=== PATIENT | male | born 1945 | race Caucasian/White ===

== ENCOUNTER → 2023-09-07 11:27 | Outpatient (REF) | payer MEDICARE, OTHER, SELFPAY ==
[2023-09-07 12:29] LABS: Hematocrit 27.3 % (39.0-52.0); Hemoglobin 8.7 g/dL (13.0-18.0); Mean Corp Hgb Conc. 31.9 g/dL (33.0-37.0); Mean Corpuscular Hgb 30.2 pg (27.0-31.0); Mean Corpuscular Volume 94.8 fL (80.0-94.0); Platelet Count 280 10^3/uL (130-400); Red Blood Cell Count 2.88 10^6/uL (4.70-6.10); Red Cell Dist. Width 18.4 % (11.5-14.5); White Blood Cell Count 7.5 10^3/uL (4.8-10.8)
[2023-09-07 12:52] LABS: Absolute Neutrophils -Man Diff 5.5 10^3/uL (1.4-6.5); Anisocytosis 1+; Band Neutrophils 9 % (0-3); Hypochromasia 1+; Lymphocytes 4 % (20-51); Metamyelocytes 6 % (-); Monocytes 15 % (2-9); Myelocytes 1 % (-); Normal RBC Morphology No; Nucleated Red Blood Cells 1 (-); Platelets Checked Yes; Polychromasia 1+; Segmented Neutrophils 65 % (42-75)
[2023-09-07 12:53] LABS: Total Cells Counted 100
[2023-09-07 13:15] LABS: Erythrocyte Sed Rate > 145 mm/hour (0-20)
== END ==
LOC: REG 11:27
PROVIDERS: ATTENDING PHYSICIAN Student in an Organized Health Care Education/Training Program; FAMILY PHYSICIAN Family Medicine
DX: M54.50 Low back pain, unspecified (principal)
CPT/HCPCS: 36415; 85025; 85652; 86140

== ENCOUNTER 2024-01-18 02:12 | Inpatient (IN) | payer MEDICARE, OTHER, SELFPAY ==
[2024-01-17 20:03] VITALS: BP 123/72
[2024-01-17 20:51] LABS: Hematocrit 27.7 % (39.0-52.0); Mean Corp Hgb Conc. 32.5 g/dL (33.0-37.0); Mean Corpuscular Hgb 29.2 pg (27.0-31.0); Mean Corpuscular Volume 89.9 fL (80.0-94.0); Platelet Count 207 10^3/uL (130-400); Red Blood Cell Count 3.08 10^6/uL (4.70-6.10); White Blood Cell Count 7.3 10^3/uL (4.8-10.8)
[2024-01-17 20:58] LABS: ALT (SGPT) 14 U/L (0-50); AST (SGOT) 56 U/L (17-59); Albumin 2.9 g/dl (3.5-5.0); Alkaline Phosphatase 882 U/L (38-126); Blood Urea Nitrogen 34 mg/dl (9-20); Calcium 8.4 mg/dl (8.4-10.2); Carbon Dioxide 22 mmol/L (22-30); Chloride 101 mmol/L (98-107); Glucose 121 mg/dl (70-99); Potassium 4.7 mmol/L (3.5-5.1); Sodium 133 mmol/L (135-145); Total Bilirubin 0.5 mg/dl (0.2-1.3); Total Protein 5.2 g/dl (6.3-8.2); eGFR > 60.00
[2024-01-17 21:09] LABS: NT-proBNP 595 pg/ml; Troponin I 0.027 ng/ml
[2024-01-17 21:46] LABS: % Basophils 0.8 % (0-2); % Eosinophils 1.6 % (0-6); % Immature Granulocytes 5.7 % (0-0.5); % Lymphocytes 16.6 % (20.5-51.1); % Monocytes 14.5 % (1.7-9.3); % Neutrophils 60.8 % (42.2-75.2); Absolute Basophils 0.1 10^3/uL (0-0.2); Absolute Eosinophils 0.1 10^3/uL (0-0.7); Absolute Immature Granulocytes 0.4 10^3/uL (0-0.05); Absolute Lymphocytes 1.2 10^3/uL (1.2-3.4); Absolute Monocytes 1.1 10^3/uL (0.1-0.6); Absolute Neutrophils 4.4 10^3/uL (1.4-6.5)
[2024-01-18] VITALS (9 sets, daily range): BP systolic 109–133; BP diastolic 63–87; BMI 27.1
--- NOTE | 2024-01-18 00:06 | ED.GENMED ---
History of Present Illness
<Luli Michele MD, Resident - Last Filed: 01/18/24 02:55>
General
Chief Complaint: Breathing Problem
Source: patient
Exam Limitations: none
Time Seen by Provider: 01/17/24 22:52
History of Present Illness
History of Present Illness:
Patient is a 78-year-old male with past medical history of COPD, former smoker (quit 20 years ago) presenting with worsening exertional shortness of breath for the past 4 to 6 weeks. He mentions he cannot walk more than 5 feet before feeling tired
and short of breath. Also has palpitations and mild exertional chest pain. States he has also been having diarrhea intermittently during the past month and has been feeling dizzy. Because of his shortness of breath and dizzy, he has been very
inactive recently and mostly bedridden. Mentions he has not been drinking and eating well and has dark urine. Daughter mentions he has been breaking up 'brown stuff' which think is more likely phlegm than vomit. Denies blood in stool.
Past History
<Luli Michele MD, Resident - Last Filed: 01/18/24 02:55>
Past History
ED Past Medical History: COPD
ED Past Surgical History: Orthopedic (Bilateral knee replacement)
Social History
Tobacco: Former smoker (Quit 40 years ago)
Alcohol: None
Review of Systems
<Luli Michele MD, Resident - Last Filed: 01/18/24 02:55>
Review of Systems
Allergies reviewed?: Yes
All Other Systems: ROS reviewed and negative except as documented in HPI and ROS
Phy Exam
<Luli Michele MD, Resident - Last Filed: 01/18/24 02:55>
General Physical Exam
General Presentation: moderate distress
General Habitus: elderly
General Hydration: dry mucous membranes
Cardiovascular Exam
Cardiovascular Exam: regular rate/rhythm, no edema, no JVD and no murmur
Pulmonary Exam
Pulmonary Exam: no wheezing, no cough, decreased breath sounds and respiratory distress (Moderate respiratory distress)
Oxygen Status: room air
Gastrointestinal Exam
Gastrointestinal Exam: normal bowel sounds, non tender, soft and non distended
Neurological Exam
Neurological Exam: alert, oriented x3, no motor deficits, no sensory deficits and speech normal
Musculoskeletal Exam
Musculoskeletal Exam: full ROM and no edema
Scores
<Luli Michele MD, Resident - Last Filed: 01/18/24 02:55>
Heart Failure Risk
Heart Failure Risk Score: Not Applicable
Course
<Luli Michele MD, Resident - Last Filed: 01/18/24 02:55>
Orders/Labs/Results
Orders:
Orders
01/17/24 20:06
EKG [Electrocardiogram (*1)] Urgent
Reason for Study: Tachycardia
EKG- Treatment ONCE
01/17/24 20:30
Complete Blood Count/With Diff Urgent
Comprehensive Metabolic Panel Urgent
Pro-BNP [NT-proBNP] Urgent
Troponin I Urgent
01/17/24 20:58
Chest [CR Chest - 2 Views ] Urgent
Comment:
Reason For Exam: SOB
01/17/24 23:47
0.9% Sodium Chloride 500 ml [Nss] 500 ml IV BOLUS
01/17/24 23:54
Copd Education [RESP] Routine
01/17/24 23:55
Dexamethasone Sod Phosphate [Decadron] 10 mg IV NOW STA
01/18/24 00:02
Ipratropium/Albuterol Sulfate [Duoneb] 3 ml INH R QID
01/18/24 00:10
Azithromycin 500 mg/250 ml [Zithromax Infusion] 500 mg in 250 ml IV NOW
CefTRIAXone [Rocephin] 1,000 mg IV NOW STA
01/18/24 00:16
Ipratropium/Albuterol Sulfate [Duoneb] 3 ml INH R NOW ONE
01/18/24 01:58
Admit/Transfer Patient As Directed
Co-Sign Provider:
Level of Care: Inpatient admission
Assign to:: Telemetry
Physician / Group: hospitalist
Diagnosis: Pleural effusion
Reason for Telemetry: Subacute Heart Failure
Date to Stop Telemetry: 01/20/24
Time to Stop Telemetry: 11:00
Reason for Hospitalization: dyspnea
Expected length of stay greater than two midnights?: Yes
ELOS- Estimated Length of Stay in days: 2
I certify the patient meets the requirements for IP care: Yes
PRN Pain Medication Management As Directed
May give lesser potent ordered pain med per pt: Yes
preference::
Protocol:: Medication orders for pain may be administered in a
manner that supports deferring to patient preference
when the pt is:
- Requesting an ordered lesser potent pain medication.
Least to most potent pain medications are defined
as: acetaminophen < NSAID < tramadol < opioids
(morphine, oxycodone, hydromorphone).
- Requesting a lesser dose of the same medication IF
ORDERED.
- Requesting a less intrusive route of administration
if both routes are prescribed by the provider (PO <
IV).
01/18/24 01:59
Code Status As Directed
Resuscitation Status: Full Code
01/18/24 02:10
COVID-19 Antigen Stat
Source: Nasal Swab
01/18/24 02:52
Ipratropium/Albuterol Sulfate [Duoneb] 3 ml INH R Q4HPRN PRN
01/18/24 02:52
CT Chest Pe Study Urgent
Comment:
Reason For Exam: PE
Consult Notification Routine
Specialty to Notify: Pulmonary
Consult Pulmonary [PULMONARY CONSULT] Routine
Consulting Provider: Kamaljit Toth
Was physician already notified: No
Reason for consult: bilateral pleural effusions
Activity As Directed
Activity Level: With Assistance
Intake/ Output As Directed
Frequency: Per unit guidelines
Patient Education As Directed
Type: CHF folder
Comment: give on admission. Document in Interdisciplinary Education record
Sleep Apnea Assessment by RN As Directed
Comment:
Physician Instructions:
Vital Signs As Directed
Frequency: Other
Additional Instructions:: Q12 or per unit guidelines if more frequent.
Weight As Directed
Frequency: Daily
Type of Scale: Standing Scale
Comment: Daily morning weight. If unable to stand, use balanced bed scale.
Weight As Directed
Frequency: Once
Type of Scale: Standing Scale
Comment: Upon Admission. If unable to stand, use balanced bed scale.
Oxygen Therapy [O2 Therapy] [RESP] Routine
Nasal Cannula Liter Flow: 2 LPM
Titrate/Wean O2 to maintain O2 sat greater than (%): 93
Pulse Ox/cont/shift [RESP] Routine
Quantity: 1
Special Instructions: Daily pulse oximetry at rest. If greater than 92% at rest also obtain pulse oximetry
while ambulating as tolerated.
DX Deep Vein Thrombosis Video Routine
01/18/24 06:00
Echo 2D MMode Color/Doppler IN AM
Reason for Study: heart failure
Cholesterol Lowering
Cholesterol Lowering: Sodium, 2 Gram
Basic Metabolic Panel IN AM
Cardiovascular Evaluation IN AM
GGT [GGTP] IN AM
LDH IN AM
Magnesium IN AM
Protein Electrophoresis Reflex [S] IN AM
TSH Reflex To Free T4 IN AM
Total Protein IN AM
Troponin I IN AM
01/18/24 08:00
Azithromycin [Zithromax] 500 mg PO DAILY
Ipratropium/Albuterol Sulfate [Duoneb] 3 ml INH R QID
Ipratropium/Albuterol Sulfate [Duoneb] 3 ml INH R QID
Prednisone [Deltasone] 20 mg PO DAILY
01/18/24 18:00
Enoxaparin Sodium [Lovenox] 40 mg SC QPM
01/19/24 06:00
Basic Metabolic Panel IN AM
01/20/24 06:00
Basic Metabolic Panel IN AM
01/20/24 11:00
DC Protocol for Telemetry ONCE
Abnormal Lab Results
01/17/24
20:30
RBC 3.08 L 10^6/uL
(4.70-6.10)
Hgb 9.0 L g/dL
(13.0-18.0)
Hct 27.7 L %
(39.0-52.0)
MCHC 32.5 L g/dL
(33.0-37.0)
RDW 20.0 H %
(11.5-14.5)
Abs Immat Gran (auto) 0.4 H 10^3/uL
(0-0.05)
Absolute Monos (auto) 1.1 H 10^3/uL
(0.1-0.6)
Immature Gran % 5.7 H %
(0-0.5)
Lymphocytes % 16.6 L %
(20.5-51.1)
Monocytes % 14.5 H %
(1.7-9.3)
Sodium 133 L mmol/L
(135-145)
BUN 34 H mg/dl
(9-20)
Glucose 121 H mg/dl
(70-99)
Alkaline Phosphatase 882 H U/L
(38-126)
Total Protein 5.2 L g/dl
(6.3-8.2)
Albumin 2.9 L g/dl
(3.5-5.0)
01/17/24 20:30
01/17/24 20:30
Vital Signs
Initial and Last Documented VS:
Initial Vital Signs
Temp Pulse Resp BP Pulse Ox
97.6 F 132 24 123/72 95
01/17/24 20:03 01/17/24 20:03 01/17/24 20:03 01/17/24 20:03 01/17/24 20:03
Last Documented Vital Signs
Temp Pulse Resp BP Pulse Ox
97.6 F 118 20 114/64 95
01/17/24 20:03 01/18/24 02:30 01/18/24 02:30 01/18/24 02:00 01/18/24 02:30
<Ger Salvador, DO - Last Filed: 01/18/24 02:34>
Orders/Labs/Results
Orders:
Orders
01/17/24 20:06
EKG [Electrocardiogram (*1)] Urgent
Reason for Study: Tachycardia
EKG- Treatment ONCE
01/17/24 20:30
Complete Blood Count/With Diff Urgent
Comprehensive Metabolic Panel Urgent
Pro-BNP [NT-proBNP] Urgent
Troponin I Urgent
01/17/24 20:58
Chest [CR Chest - 2 Views ] Urgent
Comment:
Reason For Exam: SOB
01/17/24 23:47
0.9% Sodium Chloride 500 ml [Nss] 500 ml IV BOLUS
01/17/24 23:54
Copd Education [RESP] Routine
01/17/24 23:55
Dexamethasone Sod Phosphate [Decadron] 10 mg IV NOW STA
01/18/24 00:02
Ipratropium/Albuterol Sulfate [Duoneb] 3 ml INH R QID
01/18/24 00:10
Azithromycin 500 mg/250 ml [Zithromax Infusion] 500 mg in 250 ml IV NOW
CefTRIAXone [Rocephin] 1,000 mg IV NOW STA
01/18/24 00:16
Ipratropium/Albuterol Sulfate [Duoneb] 3 ml INH R NOW ONE
01/18/24 01:58
Admit/Transfer Patient As Directed
Co-Sign Provider:
Level of Care: Inpatient admission
Assign to:: Telemetry
Physician / Group: hospitalist
Diagnosis: Pleural effusion
Reason for Telemetry: Subacute Heart Failure
Date to Stop Telemetry: 01/20/24
Time to Stop Telemetry: 11:00
Reason for Hospitalization: dyspnea
Expected length of stay greater than two midnights?: Yes
ELOS- Estimated Length of Stay in days: 2
I certify the patient meets the requirements for IP care: Yes
PRN Pain Medication Management As Directed
May give lesser potent ordered pain med per pt: Yes
preference::
Protocol:: Medication orders for pain may be administered in a
manner that supports deferring to patient preference
when the pt is:
- Requesting an ordered lesser potent pain medication.
Least to most potent pain medications are defined
as: acetaminophen < NSAID < tramadol < opioids
(morphine, oxycodone, hydromorphone).
- Requesting a lesser dose of the same medication IF
ORDERED.
- Requesting a less intrusive route of administration
if both routes are prescribed by the provider (PO <
IV).
01/18/24 01:59
Code Status As Directed
Resuscitation Status: Full Code
01/18/24 02:10
COVID-19 Antigen Stat
Source: Nasal Swab
01/18/24 02:52
Ipratropium/Albuterol Sulfate [Duoneb] 3 ml INH R Q4HPRN PRN
01/18/24 02:52
CT Chest Pe Study Urgent
Comment:
Reason For Exam: PE
Consult Notification Routine
Specialty to Notify: Pulmonary
Consult Pulmonary [PULMONARY CONSULT] Routine
Consulting Provider: Kamaljit Toth
Was physician already notified: No
Reason for consult: bilateral pleural effusions
Activity As Directed
Activity Level: With Assistance
Intake/ Output As Directed
Frequency: Per unit guidelines
Patient Education As Directed
Type: CHF folder
Comment: give on admission. Document in Interdisciplinary Education record
Sleep Apnea Assessment by RN As Directed
Comment:
Physician Instructions:
Vital Signs As Directed
Frequency: Other
Additional Instructions:: Q12 or per unit guidelines if more frequent.
Weight As Directed
Frequency: Daily
Type of Scale: Standing Scale
Comment: Daily morning weight. If unable to stand, use balanced bed scale.
Weight As Directed
Frequency: Once
Type of Scale: Standing Scale
Comment: Upon Admission. If unable to stand, use balanced bed scale.
Oxygen Therapy [O2 Therapy] [RESP] Routine
Nasal Cannula Liter Flow: 2 LPM
Titrate/Wean O2 to maintain O2 sat greater than (%): 93
Pulse Ox/cont/shift [RESP] Routine
Quantity: 1
Special Instructions: Daily pulse oximetry at rest. If greater than 92% at rest also obtain pulse oximetry
while ambulating as tolerated.
DX Deep Vein Thrombosis Video Routine
01/18/24 06:00
Echo 2D MMode Color/Doppler IN AM
Reason for Study: heart failure
Cholesterol Lowering
Cholesterol Lowering: Sodium, 2 Gram
Basic Metabolic Panel IN AM
Cardiovascular Evaluation IN AM
GGT [GGTP] IN AM
LDH IN AM
Magnesium IN AM
Protein Electrophoresis Reflex [S] IN AM
TSH Reflex To Free T4 IN AM
Total Protein IN AM
Troponin I IN AM
01/18/24 08:00
Azithromycin [Zithromax] 500 mg PO DAILY
Ipratropium/Albuterol Sulfate [Duoneb] 3 ml INH R QID
Ipratropium/Albuterol Sulfate [Duoneb] 3 ml INH R QID
Prednisone [Deltasone] 20 mg PO DAILY
01/18/24 18:00
Enoxaparin Sodium [Lovenox] 40 mg SC QPM
01/19/24 06:00
Basic Metabolic Panel IN AM
01/20/24 06:00
Basic Metabolic Panel IN AM
01/20/24 11:00
DC Protocol for Telemetry ONCE
Abnormal Lab Results
01/17/24
20:30
RBC 3.08 L 10^6/uL
(4.70-6.10)
Hgb 9.0 L g/dL
(13.0-18.0)
Hct 27.7 L %
(39.0-52.0)
MCHC 32.5 L g/dL
(33.0-37.0)
RDW 20.0 H %
(11.5-14.5)
Abs Immat Gran (auto) 0.4 H 10^3/uL
(0-0.05)
Absolute Monos (auto) 1.1 H 10^3/uL
(0.1-0.6)
Immature Gran % 5.7 H %
(0-0.5)
Lymphocytes % 16.6 L %
(20.5-51.1)
Monocytes % 14.5 H %
(1.7-9.3)
Sodium 133 L mmol/L
(135-145)
BUN 34 H mg/dl
(9-20)
Glucose 121 H mg/dl
(70-99)
Alkaline Phosphatase 882 H U/L
(38-126)
Total Protein 5.2 L g/dl
(6.3-8.2)
Albumin 2.9 L g/dl
(3.5-5.0)
01/17/24 20:30
01/17/24 20:30
Vital Signs
Initial and Last Documented VS:
Initial Vital Signs
Temp Pulse Resp BP Pulse Ox
97.6 F 132 24 123/72 95
01/17/24 20:03 01/17/24 20:03 01/17/24 20:03 01/17/24 20:03 01/17/24 20:03
Last Documented Vital Signs
Temp Pulse Resp BP Pulse Ox
97.6 F 118 20 114/64 95
01/17/24 20:03 01/18/24 02:30 01/18/24 02:30 01/18/24 02:00 01/18/24 02:30
<Luli Michele MD, Resident - Last Filed: 01/18/24 02:55>
MDM/Problems Addressed
Differential Diagnosis Includes:
Acute COPD exacerbation, Pleural effusion, Possible metastatic cancer, Anemia
MDM/Problems Addressed:
DuoNeb, IV Decadron (10 mg), Rocephin, Azithromycin were given. 1 L N/S administered for possible dehydration. Hospitalist contacted.
<Ger Salvador, DO - Last Filed: 01/18/24 02:34>
MDM/Problems Addressed
Chronic conditions affecting care: COPD
Acute Exacerbation and/or Progression of Chronic Illness: COPD
<Ger Salvador, DO - Last Filed: 01/18/24 02:34>
*Radiology
Radiology exam reviewed: radiology read reviewed (Chest x-ray bilateral pleural effusions, possible pneumonia)
*Pulse Oximetry
Patient hypoxic: no
*EKG
Interpreted by ED Provider?: Yes
EKG Intrepretation Date: 01/17/24
EKG Intrepretation Time: 20:20
Interpretation: abnormal
Comparison EKG: changes noted
Heart Rate: 127
Rate: tachycardiac
Rhythm: sinus tachycardia
Mobile: left axis deviation
Interval: normal interval
QRS Pattern: normal QRS
Ischemia: no ischemia
*Cvor Nurse Interpretation
Rate: tachycardiac
Interpretation: abnormal
Heart Rate: 125
Rhythm: sinus tachycardia
*Critical Care Note
Total Time (30-74mins, 75-104mins- exclusive of procedures): Not Applicable
<Ger Salvador DO - Last Filed: 01/18/24 02:34>
Patient Management
Social determinants of health affecting care: Living situation
Discussion with other providers: Hospitalist
Escalation/DeEscalation of care consider admission/obs:
admit indicated
ED Attending Note
<Luli Michele MD, Resident - Last Filed: 01/18/24 02:55>
-
Portions of this chart may have been created with voice recognition software.� Occasional wrong word or��sound alike� substitutions may have occurred due to the inherent limitations of voice recognition software.
<Ger Salvador DO - Last Filed: 01/18/24 02:34>
ED Attending Note
Patient seen and examined by attending physician: Yes
I performed a history and physical exam of patient and discussed management with resident, I reviewed resident's note and agree with documented findings and plan of care.: Yes
ED Attending Note:
I reviewed and agree with history and treatment plan by
Discharge Plan
Departure
Patient Disposition: Admit
Date of Disposition: 01/18/24
Time of Disposition: 01:10
Admit to: Telemetry
Presentation/result/management discussed w/ accepting MD/DO: Hospitalist
Patient with high blood pressure during this ER visit?: Yes
Condition: Fair
Discharge Problem:
Pneumonia, Acute exacerbation of chronic obstructive pulmonary disease, Bilateral pleural effusion
Interventions
Interventions:
*Risk Screen - Suicide Last Done: 01/17/24 20:07
*General Assessment Last Done: 01/17/24 20:03
*Neglect/Abuse Screening Last Done: 01/17/24 20:07
ED- Fall Risk Assessment Last Done: 01/18/24 01:09
*ED COVID-19 Vaccine History Last Done: 01/18/24 01:09
*Nursing Disposition Last Done: 01/18/24 02:52
ED- Cardiac Assessment Last Done: 01/17/24 23:15
ED- Pulmonary Assessment Last Done: 01/17/24 23:15
Discharge Date and Time
Discharge Date/Time: 01/18/24 02:52
[2024-01-18] MEDS: DECADRON 10 MG IV (00:14)
[2024-01-18] MEDS: NSS 500 IV (00:14)
[2024-01-18] MEDS: DUONEB 3 ML INH ×5 (00:17→19:41)
[2024-01-18] MEDS: ROCEPHIN 1000 MG IV (00:41)
[2024-01-18] MEDS: ZITHROMAX INFUSION 250 IV (00:45)
--- NOTE | 2024-01-18 01:45 | HPS.HSE ---
Family Physician
-
Family Physician: Edwardo Vazquez
Chief Complaint
-
Dyspnea on exertion
History of Present Illness
This is a 78-year-old male who has a past medical history of recurrent/chronic bronchitis, difficulties on hyperlipidemia, chronic back pain currently on any medications except for intermittent use of nebulizers who presented to the emergency
department with approximately 3 weeks to 1 month of increasing shortness of breath and dyspnea exertion.
Patient reported that prior to this episode he had been almost in usual state of health with intermittent episodes of shortness of breath associated with nonproductive cough that improves with nebulizer treatments. Over the last few weeks he has
had decreased effectiveness of his nebulizer treatments. He has occasional cough only in the mornings. And it is nonproductive. Denies having fevers or chills. He has been no sick contacts. He reports that he did have increased right ankle
edema secondary to a sprain recently. However over the last few days he has noted worsening dyspnea on exertion and is not able to walk even across his room. He denies orthopnea or PND. He denies any known weight gain. He reports decreased
appetite mostly due to decreased interest in cooking secondary to debilitation. Patient denies palpitations lightheadedness or dizziness. He quit smoking about 45 years ago. He reports that his usual colonoscopy has been done without history of
malignancy. He denies having chest pain pleuritic or otherwise.
Intermittent department he was afebrile, oxygen saturation was 95% on room air blood pressure 122/87 he was tachycardic to 116. ECG showed sinus tachycardia with a right bundle branch block. No acute ST or T wave changes. BNP was 520. He had no
leukocytosis hemoglobin was 9 which is similar to his previous and he had normal platelet count. Sodium was 133, creatinine 1.1. LFTs show elevated alk phos to 882 and albumin was low at 2.9. Chest x-ray shows moderate bilateral pleural effusion
and question of bony metastasis.
Medical History
Past Medical History
Past Medical History: Reports COPD
Past Surgical History: Reports Orthopedic (Bilateral knee replacement)
Social History
Tobacco: Former Smoker
Alcohol: None
Drug: None
Personal: Single
Living: Alone
Employment: Retired
Family History
Family History: Not pertinent
Allergies / Home Medications
Allergies reflects when Allergies were last updated in [employer].
Home Medications with original date entered in [employer]
Allergy/Medication List:
Allergies
Allergy/AdvReac Type Severity Reaction Status Date / Time
No Known Allergies Allergy Verified 09/04/16 11:34
NONE
Review of Systems
-
Constitutional: Reports Fatigue
EENT: Reports No Symptoms
Respiratory: Reports Trouble Breathing
Cardiac: Reports No Symptoms
Abdomen/GI: Reports No Symptoms
: Reports No Symptoms
Musculoskeletal: Reports No Symptoms
Skin: Reports No Symptoms
Neurological: Reports No Symptoms
Endocrine: Reports No Symptoms
Hematologic/Lymphatic: Reports No Symptoms
Psych: Reports No Symptoms
Physical Exam
Vital Signs
Vital Signs
Temp Pulse Resp BP Pulse Ox
97.6 F 121 23 109/63 93
01/17/24 20:03 01/18/24 01:30 01/18/24 01:30 01/18/24 01:00 01/18/24 01:30
Physical Exam
General: No Apparent Distress and Appears Chronically Ill
HEENT: NormoCephalic, Anicteric, Moist mucous membranes, Atraumatic, PERRLA and Neck Nontender
Respiratory: Clear, Non Labored Respirations and Decreased Breath Sounds
Cardiac: S1/S2, Regular Rhythm and Tachycardia
Breast: Deferred by me
GI: Soft, Non Tender, Non Distended and Normal Bowel Sounds
Rectal: Deferred by Provider
Genito-urinary: Deferred by me
Musculoskeletal: No Clubbing, No Cyanosis, Edema, Left Lower Extremity (1 +) and Edema, Right Lower Extremity (2+)
Skin: Warm and Dry
Neuro: AO x 3
Hematologic/Lymphatic: No Lymphadenopathy
Psych: Calm
Laboratory Results
-
01/17/24 20:30
01/17/24 20:30
Laboratory Results
Total Bilirubin 0.5 mg/dl (0.2-1.3) 01/17/24 20:30
AST 56 U/L (17-59) 01/17/24 20:30
ALT 14 U/L (0-50) 01/17/24 20:30
Alkaline Phosphatase 882 U/L (38-126) H 01/17/24 20:30
Troponin I 0.027 ng/ml 01/17/24 20:30
Data Reviewed
-
Diagnostic Radiology: Image Personally Visualized and interpreted
Medical Tests (Nuc Med, Echo, EKG etc): Image Personally Visualized and interpreted
Lab Data: Labs Reviewed by me
Old Records: Reviewed
Impression/Plan
-
IMPRESSION:
Patient with no known significant past medical history except a diagnosis of COPD as outpatient few years ago, quit smoking over 45 years ago presents to the emergency department with worsening dyspnea on exertion and shortness of breath. He has no
chest pain. He is satting 95% on room air. Found to have moderate bilateral pleural effusion and possibility of bony mets on x-ray. His BNP is elevated. He is tachycardic at rest over a couple hours in the emergency department. Ordered notable
findings or elevated alk phos level. On exam in addition to the pleural effusion patient had no crackles on exam he was not wheezing he does have bilateral lower extremity edema with right greater than left.
PLAN:
1. SOB -patient does not appear to be in COPD exacerbation to me. Symptoms ongoing for 3 weeks and worsening without wheezing cough or respiratory distress at rest. He has severe dyspnea exertion but no chest pain. He had bilateral pleural
effusion and lower extremity edema. BNP is borderline in the 590s. I suspect is dyspnea on exertion is secondary to CHF versus pleural effusion versus venous thromboembolism.
- no indication for abx
- will continue with nebs and short course of prednisone
- supplemental oxygen as needed.
2. Pleural effusions - Bilateral suspicious for cardiogenic, however with the xray question of bony mets and elevated alkphos can't rule out malignant effusion
- CT chest
- pulmonary consultation
- likely diagnostic thoracentesis
3. Tachycardia - Either from CHF or VTE
- CTPE for now and monitor
4. Volume overload - ? CHF, BNP 590 is equivocal
- echo in am
- fluid restriction for now, hold diuretics
5. Elevated alkphos - possibly from bony mets, unlikley biliary
- check ggt
- consider skeletal survey in am
- serum protein electrophoresis ordered
DVT PPX - lovenox sq
Code status - Full code
[2024-01-18 02:51] LABS: COVID-19 Antigen Negative (Negative)
[2024-01-18 06:56] LABS: Troponin I 0.021 ng/ml
[2024-01-18 07:03] LABS: Blood Urea Nitrogen 32 mg/dl (9-20); Calcium 8.2 mg/dl (8.4-10.2); Carbon Dioxide 21 mmol/L (22-30); Chloride 102 mmol/L (98-107); Estimated Creatinine Clearance 67 ml/min; GGTP 81 U/L (15-73); Glucose 127 mg/dl (70-99); HDL Cholesterol 73 mg/dl; LDH 318 U/L (120-246); LDL Cholesterol, Calculated 60 mg/dl; Magnesium 2.3 mg/dl (1.6-2.3); Potassium 4.6 mmol/L (3.5-5.1); Sodium 132 mmol/L (135-145); Total Cholesterol 144 mg/dl (50-199); Total Protein 4.8 g/dl (6.3-8.2); Triglyceride 59 mg/dl (10-149); Very Low Density Lipoprotein 11 mg/dl (0-30); eGFR > 60.00
--- NOTE | 2024-01-18 07:38 | W.PN.HOSP.TC ---
Today's Communication/Plan
-
pain control
monitor respiratory status
IR eval for thoracentesis and cytology
Pulm and Oncology eval
Assessment / Plan
Assessment / Plan
Physical Exam
General: No Apparent Distress and Appears Chronically Ill
HEENT: NormoCephalic, Anicteric, Moist mucous membranes, Atraumatic, PERRLA and Neck Nontender
Respiratory: Clear, Non Labored Respirations and Decreased Breath Sounds
Cardiac: S1/S2, Regular Rhythm and Tachycardia
GI: Soft, Non Tender, Non Distended and Normal Bowel Sounds
Musculoskeletal: No Clubbing, No Cyanosis, Edema, Left Lower Extremity (1 +) and Edema, Right Lower Extremity (2+)
Skin: Warm and Dry
Neuro: AO x 3
Hematologic/Lymphatic: No Lymphadenopathy
Psych: Calm
Patient with no known significant past medical history except a diagnosis of COPD as outpatient few years ago, quit smoking over 45 years ago presents to the emergency department with worsening dyspnea on exertion and shortness of breath. He has no
chest pain. He is satting 95% on room air. Found to have moderate bilateral pleural effusion and possibility of bony mets on x-ray. His BNP is elevated. He is tachycardic at rest over a couple hours in the emergency department. Ordered notable
findings or elevated alk phos level. On exam in addition to the pleural effusion patient had no crackles on exam he was not wheezing he does have bilateral lower extremity edema with right greater than left.
PLAN:
1. SOB -patient does not appear to be in COPD exacerbation to me. Symptoms ongoing for 3 weeks and worsening without wheezing cough or respiratory distress at rest. He has severe dyspnea exertion but no chest pain. He had bilateral pleural
effusion and lower extremity edema. BNP is borderline in the 590s. I suspect is dyspnea on exertion is secondary to CHF versus pleural effusion versus venous thromboembolism.
- no indication for abx
- will continue with nebs and short course of prednisone
- supplemental oxygen as needed (currently on room air)
2. Pleural effusions - Bilateral suspicious for cardiogenic, however with the xray question of bony mets and elevated alkphos can't rule out malignant effusion
- CT chest appreciated no PE but concerning for prostate ca metastatic disease
- pulmonary consultation appreciated
- IR consulted for thoracentesis cytology
-Oncology consult appreciated
3. Tachycardia likely due to pleural effusions
4. Volume overload - CHF less likely, BNP 590 is equivocal
- ECHO appreciated EF 55-60% relatively normal study, aortic sclerosis w/o stenosis
- fluid restriction for now
-diuretics as per pulm
5. Elevated alkphos likely from bone mets
-eventual bone scan
-follow up serum electrophoresis
DVT PPX - lovenox sq
Code status - Full code
Discussed with patient, aware concern for metastatic prostate cancer
I spent a total of 50 minutes with the patient or on the floor. More than 50% of this time involved counseling and coordination of care.
Anticipated Discharge: 24 - 48 hours
Subjective/Interval History
-
Date of Service: January 18, 2024
No acute distress sitting up comfortably in bed. Reports improvement in symptoms. Stable respiratory status on room air.
Objective Data
-
Labs:
Laboratory Results
01/17/24 01/18/24
20:30 05:46
WBC 7.3
Hgb 9.0 L
Hct 27.7 L
Plt Count 207
Sodium 133 L 132 L
Potassium 4.7 4.6
Chloride 101 102
Carbon Dioxide 22 21 L
BUN 34 H 32 H
Creatinine 1.1 1.0
Glucose 121 H 127 H
Calcium 8.4 8.2 L
Total Bilirubin 0.5
AST 56
ALT 14
Alkaline Phosphatase 882 H
Vital Signs:
Vital Signs
Temp Pulse Resp BP Pulse Ox
98.4 F 124 18 133/80 95
01/18/24 02:50 01/18/24 02:50 10/15/24 02:50 01/18/24 02:50 01/18/24 03:52
I&O
01/17/24 01/18/24 01/19/24
06:59 06:59 06:59
Intake Total 240 / 240
Output Total 50 / 50
Balance 190 / 190
--- NOTE | 2024-01-18 09:44 | CON.PUL ---
Consultation
Consultation Request
Date/Time Consultation Requested: 01/18/2024251
Date/Time Consultation Performed: 01/18/2024939
Requesting Provider: Dr. Sims
Performing Provider: Dr. Herrera
Reason for Consultation: Bilateral pleural effusions
Medical History
-
Chief Complaint: SOB, weakness, low urine output + fast heart rate
History of Present Illness:
78-year-old male former tobacco smoker with a past medical history of GERD, PUD, history of prostatitis, RBBB, PTSD/LYNSEY, depression, right wrist arthritis, right carpal tunnel syndrome, history of recurrent bronchitis and chronic back pain who
presents with shortness of breath, generalized weakness, fast heart rate and low urine output. Symptoms have been ongoing for about 1 month. He has a nebulizer at home which she has been using intermittently, which have been less effective over
the last few weeks. He has an occasional morning dry cough. No fevers, chills or recent sick contacts. He is not feeling short of breath even while walking at normal pace after several feet. In the ER he was afebrile to 97.6 �F, tachycardic to
132, tachypneic to 24, BP 123/72 and saturating 95% on room air. EKG showed sinus tachycardia with RBBB. Labs showed anemia to 9, sodium 133, glucose 121, ALP 82, troponin WNL at 0.027, proBNP slightly elevated at 595, and COVID-19 antigen
negative. CXR showed bilateral pleural effusions, with CT chest showing no evidence of an acute PE, with large bilateral pleural effusions and suspected widespread sclerotic bony metastatic disease. He was given DuoNebs, ceftriaxone/Zithromax,
Decadron and admitted to the floor for further management. Pulmonary service now consulted for additional management/recommendations.
When I saw the pt he was resting in bed in [facility]. He was on room air breathing comfortably. He apparently was told 'years ago' that he had an abnormal appearing prostate, and was rec'd to get a biopsy but never obtained one due to risks > benefits.
He is not sure who advised this or when exactly this was told to him, or where his imaging was performed at. He takes albuterol and a nebulizer at home - does not know exactly which medication is in the nebulizer. He currently denies chest pain,
WAGNER, abd pain, N/V/f/c.
PMHx: GERD, colonic polyps, hiatal hernia, PUD, prostatitis, right carpal tunnel syndrome, seasonal allergies, RBBB, PTSD, hyperlipidemia, LYNSEY, depression, right wrist arthritis
PSHx: Bilateral knee replacements, tonsils and adenoid removal, bilateral cataract surgery
Past Medical History
Past Medical History: Other (Above as per HPI)
Past Surgical History: Other (Above as per HPI)
Social History
Tobacco: Former Smoker (Quit smoking in 1966)
Alcohol: None
Drug: None
Family History
Family History: Other (Father: Lung disease; mother: CHF)
Allergies / Home Medications
Allergies
Allergy/AdvReac Type Severity Reaction Status Date / Time
No Known Allergies Allergy Verified 09/04/16 11:34
Review of Systems
-
History Source: Patient
All other systems: Negative unless noted
Vitals / Labs / Diagnostic Testing
Vital Signs
Temp Pulse Resp BP Pulse Ox
97.3 F 118 20 126/81 94
01/18/24 07:10 01/18/24 08:08 01/18/24 08:08 01/18/24 07:10 01/18/24 10:26
Lab Data
01/17/24 20:30
01/18/24 05:46
Diagnostic Testing:
Physical Exam
-
HEENT: Normocephalic and Anicteric
Cardiovascular: S1/S2 and Peripheral Edema (+2 LE pitting edema bilaterally)
Respiratory: Wheeze (negative), Rales (negative), Rhonchi (negative), Non-Labored Respirations and Other (Diminished breath sounds bilaterally)
GI: Soft, Non Distended, Non Tender and Normal Bowel Sounds
Neurology: Awake, Alert and Tremors (negative)
Skin: Warm and Dry
General: Respiratory Distress (negative), Comfortable, Chills (negative) and Sweats (negative)
Assessment
-
Assessment: 78-year-old male former tobacco smoker with a past medical history of GERD, PUD, history of prostatitis, RBBB, PTSD/LYNSEY, depression, right wrist arthritis, right carpal tunnel syndrome, history of recurrent bronchitis and chronic back
pain who presents with shortness of breath, generalized weakness, fast heart rate and low urine output. Symptoms have been ongoing for about 1 month. He has a nebulizer at home which she has been using intermittently, which have been less
effective over the last few weeks. He has an occasional morning dry cough. No fevers, chills or recent sick contacts. He is not feeling short of breath even while walking at normal pace after several feet. In the ER he was afebrile to 97.6 �F,
tachycardic to 132, tachypneic to 24, BP 123/72 and saturating 95% on room air. EKG showed sinus tachycardia with RBBB. Labs showed anemia to 9, sodium 133, glucose 121, ALP 82, troponin WNL at 0.027, proBNP slightly elevated at 595, and COVID-19
antigen negative. CXR showed bilateral pleural effusions, with CT chest showing no evidence of an acute PE, with large bilateral pleural effusions and suspected widespread sclerotic bony metastatic disease. He was given DuoNebs,
ceftriaxone/Zithromax, Decadron and admitted to the floor for further management. Pulmonary service now consulted for additional management/recommendations.
Chronic conditions [employer]: GERD, colonic polyps, hiatal hernia, PUD, prostatitis, right carpal tunnel syndrome, seasonal allergies, RBBB, PTSD, hyperlipidemia, LYNSEY, depression, right wrist arthritis
Impression:
#Acute respiratory failure with hypoxia due to bilateral pleural effusions
#Anemia
#Hyponatremia (mild)
#Elevated ALP, LDH + GGT
#Reported Hx of COPD
Plan:
- Shortness of breath + hypoxia is undoubtedly due to bilateral pleural effusions, and in the setting of widespread sclerotic bony lesions suspected to be metastasis, effusions may be malignant although given they are bilateral there is high concern
for acute decompensated heart failure
- Start diuresis with 40 mg IV Lasix daily, trending I's/O, UOP and trend sCr
- Given concern for malignancy, consult IR for thoracentesis, sending cytopathology, glucose, cell count with diff, protein, albumin, LDH and cultures
- Given concern for prostate cancer due to widespread sclerotic bony lesions with c/f metastasis, check CT abd/pelvis with IV contrast--> to evaluate for intra-abdominal lymphadenopathy that could be a target for biopsy via IR
- Sodium/fluid restricted diet
- He is currently on prednisone, however given his CT chest findings, do not feel that steroids are indicated given the large bilateral pleural effusions and he is not wheezing on exam
- Would quickly wean off steroids
- Also on zithromax --> this can likely be stopped as well (not a home med)
- He apparently has a reported Hx of COPD --> continue Duonebs QID with prn nebulized bronchodilators and keep SpO2 88-95%
- Outpatient follow up with full PFTs to evaluate for presence of COPD and for management of COPD if this is diagnosed
- Follow-up SPEP
- Trend LFTs including ALP, LDH + GGT
- Trend sNa
- Obtain outpatient medical records from his PCP as he reports that he had been told in the past he had an abnormal appearing prostate, and biopsy was discussed but ultimately deferred due to high risk > benefits
- Incentive spirometer encouraged
- Replete electrolytes with K>4, Mg>2
- Maintain euglycemia with goal BG >100 and <180
- DVT ppx: LMWH
Pulmonary service will continue to follow along.
Data:
CTA Chest 01/18/2024:
No findings to confirm central pulmonary embolism with evaluation of the lower lobe pulmonary arterial branches bilaterally markedly limited by moderate to large bilateral pleural effusions.
Suspected marked widespread sclerotic bony metastatic disease. Prostate carcinoma would be most likely differential diagnostic possibility.
CXR 01/17/2024:
Moderate bilateral pleural effusions. Underlying pneumonia not excluded.
Possible bony metastasis. This would better be evaluated by a bone scan if not already known.
Total time spent today was 57 minutes for this encounter. Time includes reviewing laboratory test/imaging results, reviewing pertinent medical records, obtaining and reviewing medical history, performing an appropriate exam, ordering medications,
tests and procedures. Time also includes documentation of this encounter, coordinating patient care and communicating with other healthcare professionals. Total time does not include separately billed tests performed on this date of service.
[2024-01-18] MEDS: DELTASONE 20 MG PO (10:15)
[2024-01-18] MEDS: LIDOCAINE 4% PATCH 1 PATCH TOPICAL (14:24)
[2024-01-18] MEDS: OMNIPAQUE 50 ML PO (14:24)
[2024-01-18] MEDS: LASIX 40 MG IV (14:24)
--- NOTE | 2024-01-18 14:35 | CON.ONC ---
Impression
Impression
acute respiratory failure
b/l pleural effusions
c/f HFpEF
hyponatremia
anemia
Plan
Plan
f/u CT ab/pelvis
consider therapeutic/diagnostic thoracentesis - if thoracentesis is non-diagnostic or non-malignant then would pursue another targetable bx site after review of CT ab/pelvis
check PSA, SPEP, FLC
check iron studies, b12, folate, retic, LDH
Further recommendations upon review by Dr. Bailey
Patient History
History of Present Illness
78 yo M former smoker presented with SOB. He reports symptoms have been ongoing and progressive over the past month. His nebulizers have not been helping. He has a non-productive cough that is most notable in the mornings. He denies fever,
chills, chest pain. He also reports generalized weakness, poor appetite, and decreased urination. He denies n/v/d/c or abdominal pain. He denies overt bleeding. ER evaluation was notable Hgb 9, sodium 133, ALP 82. He was COVID-19 antigen
negative. CXR showed bilateral pleural effusions. CTA chest showed no evidence of an acute PE, however, did show large bilateral pleural effusions and suspected widespread sclerotic bony metastatic disease. He was admitted given DuoNebs, started
on ceftriaxone/Zithromax, started on Decadron.
He tells me that he recently saw orthopedics at [facility] for worsening LBP. He has been using a lidoderm patch and NSAIDs prn. He has not started physical therapy yet. He denies any LE weakness or loss of bowel/bladder. He denies any headaches or
neurological changes. 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
Afebrile, tachycardia, no hypotension, no hypoxia
Past-Medical/Surgical History
PMH HLD, chronic LBP, chronic bronchitis, COPD, GERD, PUD, prostatitis, PTSD/LYNSEY, depression, right carpal tunnel, colonic polyps, hiatal hernia
PSH b/l knee replacement, tonsils, adenoids, b/l cataracts
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
Family: father with 'giant cell' malignancy
Patient Medication
Active Medications
Generic Name Dose Route Start Last Admin
Trade Name Freq PRN Reason Stop Dose Admin
Acetaminophen 650 mg 01/18/24 13:34
Acetaminophen 325 Mg Tablet PO 02/15/24 13:33
Q6HPRN PRN
mild pain/ fever>100.5F
Albuterol/Ipratropium 3 ml 01/18/24 02:52
Ipratropium 0.5/Albuterol 3 Mg (3 Ml Ampul) INH
R Q4HPRN PRN
shortness of breath or wheeze
Protocol
Albuterol/Ipratropium 3 ml 01/18/24 08:00 01/18/24 12:07
Ipratropium 0.5/Albuterol 3 Mg (3 Ml Ampul) INH 3 ml
R QID JENNIE Administration
Protocol
Enoxaparin Sodium 40 mg 01/18/24 18:00
Enoxaparin Sodium 40 Mg/0.4 Ml Syringe SC 02/15/24 17:59
QPM JENNIE
Famotidine 20 mg 01/18/24 20:00
Famotidine 20 Mg Tablet PO 02/15/24 19:59
BID JENNIE
Furosemide 40 mg 01/18/24 14:15 01/18/24 14:24
Furosemide 40 Mg (10 Mg/Ml) 4 Ml Vial IV 02/15/24 14:14 40 mg
DAILY JENNIE Administration
Ibuprofen 400 mg 01/18/24 13:34
Ibuprofen 400 Mg Tablet PO 02/15/24 13:33
Q6HPRN PRN
moderate severe pain
Lidocaine 1 patch 01/18/24 14:15 01/18/24 14:24
Lidocaine 4% Topical Patch TOPICAL 02/15/24 14:14 1 patch
DAILY EJNNIE Administration
Protocol
Patch Removal 0 patch 01/18/24 20:00
Remove Lidocaine Patch REMOVE 02/15/24 19:59
DAILY@2000 JENNIE
Prednisone 20 mg 01/18/24 08:00 01/18/24 10:15
Prednisone 20 Mg Tablet PO 02/15/24 07:59 20 mg
DAILY JENNIE Administration
Sodium Chloride 0 flush 01/18/24 03:00
Sodium Chloride 0.9% (Flush) Syringe IV 02/15/24 02:59
PER PROTOCOL JENNIE
Review of Systems
-
ROS notable for HPI, otherwise negative
Physical Exam
-
General: No Apparent Distress and Appears Chronically Ill
HEENT: Moist Mucous Membranes; Negative Jaundice
Cardiology: S1, S2 and Other (tachycardia)
Pulmonary: Clear and Other (diminished b/l bases)
GI: Soft
Extremities: Pulses Present and Edema (B/L LE pitting edema R>L)
Neurology: Non Focal
Skin: Warm
Psych: Calm and Other (tearful)
Labs
Lab Results
WBC 7.3 10^3/uL (4.8-10.8) 01/17/24 20:30
RBC 3.08 10^6/uL (4.70-6.10) L 01/17/24 20:30
Hgb 9.0 g/dL (13.0-18.0) L 01/17/24 20:30
Hct 27.7 % (39.0-52.0) L 01/17/24 20:30
MCV 89.9 fL (80.0-94.0) 01/17/24 20:30
MCH 29.2 pg (27.0-31.0) 01/17/24 20:30
MCHC 32.5 g/dL (33.0-37.0) L 01/17/24 20:30
RDW 20.0 % (11.5-14.5) H 01/17/24 20:30
Plt Count 207 10^3/uL (130-400) 01/17/24 20:30
MPV 9.0 fL (7.4-10.4) 01/17/24 20:30
Abs Immat Gran (auto) 0.4 10^3/uL (0-0.05) H 01/17/24 20:30
Absolute Neuts (auto) 4.4 10^3/uL (1.4-6.5) 01/17/24 20:30
Absolute Lymphs (auto) 1.2 10^3/uL (1.2-3.4) 01/17/24 20:30
Absolute Monos (auto) 1.1 10^3/uL (0.1-0.6) H 01/17/24 20:30
Absolute Eos (auto) 0.1 10^3/uL (0-0.7) 01/17/24 20:30
Absolute Basos (auto) 0.1 10^3/uL (0-0.2) 01/17/24 20:30
Immature Gran % 5.7 % (0-0.5) H 01/17/24 20:30
Neutrophils % 60.8 % (42.2-75.2) 01/17/24 20:30
Lymphocytes % 16.6 % (20.5-51.1) L 01/17/24 20:30
Monocytes % 14.5 % (1.7-9.3) H 01/17/24 20:30
Eosinophils % 1.6 % (0-6) 01/17/24 20:30
Basophils % 0.8 % (0-2) 01/17/24 20:30
Creatinine 1.0 mg/dL (0.7-1.3) 01/18/24 05:46
Vital Signs
Vital Signs
Temp Pulse Resp BP Pulse Ox
97.6 F 112 20 130/68 94
01/18/24 12:05 01/18/24 12:10 01/18/24 12:10 01/18/24 12:05 01/18/24 12:10
--- NOTE | 2024-01-18 15:36 | CM ---
Pt seen at bedside. Pt is a retired w/ benefits.
Pt lives alone in a single story home w/ 5 steps to enter.
Prev. independent w/ cane and walker. Per pt he rarely uses walker. Has toilet seat raiser for additional support
Pt has a nebulizer at home that is in working condition. Per pt he has extra mouth pieces.
Denies hx of home health but if rec [facility] is agreeable [facility]
Denies financial insecurities
Had SNF in the past for knee replacements but doesn't remember the facility just that it was located in [place], [place].
Address, insurance and contacts confirmed
PCP: Dr. Vazquez
[facility]: [facility]
CM will cont. following for d/c planning needs
Plan: Home w/ needs vs no needs
[2024-01-18] MEDS: LOVENOX 40 MG SC (17:26)
[2024-01-18] MEDS: PEPCID 20 MG PO (21:09)
[2024-01-18] MEDS: ANESTHETIC LOZENGE 1 LOZENGE PO (23:40)
[2024-01-19] VITALS (9 sets, daily range): BP systolic 89–124; BP diastolic 55–66; BMI 27.4
--- NOTE | 2024-01-19 04:17 | DOWNTIME ---
There was a [employer] Client [employer] Downtime on 01/19/2024 from 0100 to 01/19/2024 at 0355. Downtime documentation of patient's care, including medication administrations, has been reconciled in the electronic record per guidelines. Refer to the
patient's paper chart under the miscellaneous tab to see printed paper medication records and downtime forms.
[2024-01-19 06:24] LABS: Hematocrit 23.1 % (39.0-52.0); Hemoglobin 7.5 g/dL (13.0-18.0); Mean Corp Hgb Conc. 32.5 g/dL (33.0-37.0); Mean Corpuscular Hgb 28.8 pg (27.0-31.0); Mean Corpuscular Volume 88.8 fL (80.0-94.0); Mean Platelet Volume 9.4 fL (7.4-10.4); Platelet Count 170 10^3/uL (130-400); Red Cell Dist. Width 20.3 % (11.5-14.5); Reticulocyte Count 1.9 % (0.4-2.8); White Blood Cell Count 9.1 10^3/uL (4.8-10.8)
[2024-01-19 06:37] LABS: Blood Urea Nitrogen 37 mg/dl (9-20); Calcium 7.9 mg/dl (8.4-10.2); Carbon Dioxide 22 mmol/L (22-30); Chloride 100 mmol/L (98-107); Estimated Creatinine Clearance 56 ml/min; Glucose 105 mg/dl (70-99); Iron 107 ug/dl (49-181); Magnesium 2.3 mg/dl (1.6-2.3); Phosphorus 3.9 mg/dl (2.5-4.5); Potassium 4.6 mmol/L (3.5-5.1); Sodium 131 mmol/L (135-145); eGFR > 60.00
[2024-01-19 06:47] LABS: Percent Saturation 78 % (20-50); Total Iron Binding Capacity 136 ug/dl (261-462)
--- NOTE | 2024-01-19 07:25 | W.PN.HOSP.TC ---
Today's Communication/Plan
-
casodex as per oncology
cont diuresis
PT/OT eval
pain control
Assessment / Plan
Assessment / Plan
Physical Exam
General: No Apparent Distress and Appears Chronically Ill
HEENT: NormoCephalic, Anicteric, Moist mucous membranes, Atraumatic, PERRLA and Neck Nontender
Respiratory: Clear, Non Labored Respirations and Decreased Breath Sounds
Cardiac: S1/S2, Regular Rhythm and Tachycardia
GI: Soft, Non Tender, Non Distended and Normal Bowel Sounds
Musculoskeletal: No Clubbing, No Cyanosis, Edema, Left Lower Extremity (1 +) and Edema, Right Lower Extremity (2+)
Skin: Warm and Dry
Neuro: AO x 3
Hematologic/Lymphatic: No Lymphadenopathy
Psych: Calm
Patient with no known significant past medical history except a diagnosis of COPD as outpatient few years ago, quit smoking over 45 years ago presents to the emergency department with worsening dyspnea on exertion and shortness of breath. He has no
chest pain. He is satting 95% on room air. Found to have moderate bilateral pleural effusion and possibility of bony mets on x-ray. His BNP is elevated. He is tachycardic at rest over a couple hours in the emergency department. Ordered notable
findings or elevated alk phos level. On exam in addition to the pleural effusion patient had no crackles on exam he was not wheezing he does have bilateral lower extremity edema with right greater than left.
PLAN:
1. SOB -patient does not appear to be in COPD exacerbation to me. Symptoms ongoing for 3 weeks and worsening without wheezing cough or respiratory distress at rest. He has severe dyspnea exertion but no chest pain. He had bilateral pleural
effusion and lower extremity edema. BNP is borderline in the 590s. I suspect is dyspnea on exertion is secondary to CHF versus pleural effusion versus venous thromboembolism.
- no indication for abx
- will continue with nebs and short course of prednisone
- supplemental oxygen as needed (currently on room air)
2. Pleural effusions - Bilateral suspicious for cardiogenic, however with the xray question of bony mets and elevated alkphos can't rule out malignant effusion
- CT chest appreciated no PE but concerning for prostate ca metastatic disease
- pulmonary consultation appreciated
- IR consulted for thoracentesis cytology
-Oncology consult appreciated Casodex started
3. Tachycardia likely due to pleural effusions
4. Volume overload - possible CHF, BNP 590 is equivocal
- ECHO appreciated EF 55-60% relatively normal study, aortic sclerosis w/o stenosis
- fluid restriction for now
-diuretics as per pulm
5. Elevated alkphos likely from bone mets
-eventual bone scan
-follow up serum electrophoresis
PT/OT
DVT PPX - lovenox sq
Code status - Full code
Discussed with patient, aware concern for metastatic prostate cancer
I spent a total of 50 minutes with the patient or on the floor. More than 50% of this time involved counseling and coordination of care.
Anticipated Discharge: 24 - 48 hours
Subjective/Interval History
-
Date of Service: January 19, 2024
No acute distress. Reports feeling significant improvement in breathing following left thoracentesis.
Objective Data
-
Labs:
Laboratory Results
01/19/24
05:52
WBC 9.1
Hgb 7.5 L
Hct 23.1 L
Plt Count 170
Sodium 131 L
Potassium 4.6
Chloride 100
Carbon Dioxide 22
BUN 37 H
Creatinine 1.2
Glucose 105 H
Calcium 7.9 L
Vital Signs:
Vital Signs
Temp Pulse Resp BP Pulse Ox
97.6 F 87 16 118/66 95
01/19/24 04:09 01/19/24 04:09 01/19/24 04:09 01/19/24 04:09 01/19/24 04:09
I&O
10/15/24 10/16/24 10/17/24
06:59 06:59 06:59
Intake Total 240 / 240
Output Total 50 / 50 325 / 325
Balance 190 / 190 -325 / -325
[2024-01-19 07:42] LABS: Folate 7.6 ng/ml (2.76-20); Vitamin B12 840 pg/ml (239-931)
--- NOTE | 2024-01-19 07:56 | W.PN.PUL3 ---
Today's Communication / Plan
-
IV diuresis
Recommend cardiology consultation to help manage his acute decompensated heart failure and for outpatient follow-up
Follow-up left-sided pleural fluid cultures + cytopathology
Would benefit from right-sided thoracentesis --> would speak to IR about this
Sodium/fluid restricted diet
Trend serum sodium
Trend LFTs
Stop prednisone
Maintain SpO2 88-95%
Casodex ordered by oncology; bone scan to be performed; outpatient oncology follow-up recommended for suspected metastatic prostate cancer
DuoNebs QID --> would DC home on Spiriva vs Incruse
Outpatient follow-up for full PFTs, management of reported COPD and discuss repeat imaging to continue monitoring RML pulmonary nodules
Pulmonary service will continue to briefly follow along
Assessment
-
Assessment: 78-year-old male former tobacco smoker with a past medical history of GERD, PUD, history of prostatitis, RBBB, PTSD/LYNSEY, depression, right wrist arthritis, right carpal tunnel syndrome, history of recurrent bronchitis and chronic back
pain who presents with shortness of breath, generalized weakness, fast heart rate and low urine output. Symptoms have been ongoing for about 1 month. He has a nebulizer at home which she has been using intermittently, which have been less
effective over the last few weeks. He has an occasional morning dry cough. No fevers, chills or recent sick contacts. He is not feeling short of breath even while walking at normal pace after several feet. In the ER he was afebrile to 97.6 �F,
tachycardic to 132, tachypneic to 24, BP 123/72 and saturating 95% on room air. EKG showed sinus tachycardia with RBBB. Labs showed anemia to 9, sodium 133, glucose 121, ALP 82, troponin WNL at 0.027, proBNP slightly elevated at 595, and COVID-19
antigen negative. CXR showed bilateral pleural effusions, with CT chest showing no evidence of an acute PE, with large bilateral pleural effusions and suspected widespread sclerotic bony metastatic disease. He was given DuoNebs,
ceftriaxone/Zithromax, Decadron and admitted to the floor for further management. Pulmonary service now consulted for additional management/recommendations.
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
Impression:
#Acute respiratory failure with hypoxia due to bilateral pleural effusions
#Acute HFpEF exacerbation
#Anemia
#Elevated PSA with concern for metastatic prostate cancer
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
#Hyponatremia (mild)
#Elevated ALP, LDH + GGT
#Reported Hx of COPD
#Multiple pulmonary nodules seen in the right middle lobe (<6mm in size)
Plan:
- Shortness of breath + hypoxia is undoubtedly due to bilateral pleural effusions, and in the setting of widespread sclerotic bony lesions suspected to be metastasis, effusions may be malignant although given they are bilateral there is high concern
for acute decompensated heart failure
- He underwent left-sided thoracentesis today, removing 1.4 L of transudative clear-colored fluid; postthoracentesis CXR showed improvement in left-sided pleural fluid with residual left-sided pleural effusion and persistent right-sided pleural
effusion with worsening right hemithorax opacification, suspected pneumothorax ex vacuo at the left lung base
- Continue diuresis with 40 mg IV Lasix daily, trending I's/O, UOP and trend sCr
- Echo done on 01/18/2024 shows normal LV systolic function with EF 55-60% with no regional WMA, normal diastolic function, normal RV size and function with normal RA size, and no evidence of PH
- Recommend to consult cardiology
- Follow up L-sided pleural fluid cultures and cytopathology
- Given concern for prostate cancer due to widespread sclerotic bony lesions with c/f metastasis, CT abd/pelvis with IV contrast performed showed severe blastic osseous metastatic disease with no acute pathology in the abdomen or pelvis, with no
intra-abdominal lymphadenopathy seen. PSA is 1120 and Oncology has started Casodex and outpatient follow-up is recommended. Bone scan will be done as per Oncology
- Sodium/fluid restricted diet
- He is currently on prednisone, however given his CT chest findings, do not feel that steroids are indicated given the large bilateral pleural effusions and he is not wheezing on exam
- Stop steroids now
- Abx stopped s/p rocephin/zithromax
- He apparently has a reported Hx of COPD --> continue Duonebs QID with prn nebulized bronchodilators and keep SpO2 88-95%
- Outpatient follow up with full PFTs to evaluate for presence of COPD and for management of COPD if this is diagnosed
- Outpatient follow up with repeat CT chest in 3 months to assess stability of RML nodules
- Follow-up SPEP
- Oncology consulted and recommendations appreciated; PSA is markedly elevated; consider urology consult for prostate biopsy
- Trend LFTs including ALP, LDH + GGT
- Trend sNa
- Obtain outpatient medical records from his PCP as he reports that he had been told in the past he had an abnormal appearing prostate, and biopsy was discussed but ultimately deferred due to high risk > benefits
- Incentive spirometer encouraged
- Replete electrolytes with K>4, Mg>2
- Maintain euglycemia with goal BG >100 and <180
- DVT ppx: LMWH
Pulmonary service will continue to follow along. Outpatient follow-up will be arranged for full PFTs and management of his COPD, as well as repeat imaging to follow-up his known RML lung nodules
Data:
CT Abd/Pelvis with IV contrast 01/18/2024:
No acute disease of the abdomen or pelvis.
Findings consistent with severe blastic osseous metastatic disease. Stable
Large bilateral pleural effusions. Stable
Mild bibasilar consolidation. Stable
Right upper lobe pulmonary nodules. Continued surveillance recommended. The patient moved during today's earlier exam limiting evaluation.
CTA Chest 01/18/2024:
No findings to confirm central pulmonary embolism with evaluation of the lower lobe pulmonary arterial branches bilaterally markedly limited by moderate to large bilateral pleural effusions.
Suspected marked widespread sclerotic bony metastatic disease. Prostate carcinoma would be most likely differential diagnostic possibility.
CXR 01/17/2024:
Moderate bilateral pleural effusions. Underlying pneumonia not excluded.
Possible bony metastasis. This would better be evaluated by a bone scan if not already known.
TTE 01/18/2024:
Normal left ventricular chamber size. Normal left ventricular systolic
function. Left ventricular ejection fraction is 55-60% by visual assessment.
Normal regional wall motion. Normal left ventricular wall thickness. Normal
diastolic function.
Top normal right ventricular size. Normal right ventricular systolic function.
Aortic sclerosis without stenosis.
No prior study for comparison
Total time spent today was 39 minutes for this encounter. Time includes reviewing laboratory test/imaging results, reviewing pertinent medical records, obtaining and reviewing medical history, performing an appropriate exam, ordering medications,
tests and procedures. Time also includes documentation of this encounter, coordinating patient care and communicating with other healthcare professionals. Total time does not include separately billed tests performed on this date of service.
Subjective Data
-
Date of Service:
Date of Service: January 19, 2024
Chief Complaint: Pulmonary Follow Up
Subjective:
Patient seen and evaluated today at bedside. Underwent left-sided thoracentesis today, removing 1.4 L of clear pleural fluid. Patient feels better since thoracentesis was done. Currently on room air breathing comfortably. He denies chest pain,
WAGNER, shoulder pain, fevers or chills.
Review of Systems
General: Other (Negative unless mentioned above)
Objective Data
Data Reviewed
Vital Signs / I&O / Oxygen:
Vital Signs
Temp Pulse Resp BP Pulse Ox
97.6 F 87 16 118/66 95
01/19/24 04:09 01/19/24 04:09 01/19/24 04:09 01/19/24 04:09 01/19/24 04:09
Intake and Output
01/18/24 01/19/24 01/20/24
06:59 06:59 06:59
Intake Total 240 / 240
Output Total 50 / 50 325 / 325
Balance 190 / 190 -325 / -325
SaO2 95
Physical Exam
General: Respiratory Distress (negative), Comfortable, Chills (negative) and Sweats (negative)
HEENT: Normocephalic and Anicteric
Cardiovascular: S1-S2 and Peripheral Edema (+1 lower extremity pitting edema bilaterally)
Respiratory: Wheeze (negative), Crackles (Left base), Rhonchi (negative), Non-Labored Respirations and Other (Diminished breath sounds at the right base)
GI: Soft, Non Distended, Non Tender and Normal Bowel Sounds
Neurology: AO x 3 and Tremors (negative)
Skin: Warm, Dry, Cyanosis (negative) and Jaundice (negative)
Labs/Micro/Reports
Lab Data
01/19/24 05:52
01/19/24 05:52
[2024-01-19] MEDS: PEPCID 20 MG PO ×2 (08:17→20:24)
[2024-01-19] MEDS: LIDOCAINE 4% PATCH 1 PATCH TOPICAL (08:17)
[2024-01-19] MEDS: DELTASONE 20 MG PO (08:17)
[2024-01-19] MEDS: LASIX 40 MG IV (08:18)
[2024-01-19] MEDS: DUONEB 3 ML INH ×4 (08:29→20:06)
[2024-01-19 08:43] LABS: Hemoglobin 8.2 g/dL (13.0-18.0)
--- NOTE | 2024-01-19 08:44 | W.PN.ONC2 ---
Today's Communication / Plan
-
Initiate Casodex. Outpt F/U to start Orgovyx.
Bone Scan.
Office aware he needs F/U
Impression
Impression
Met Prostate Ca with PSA > 1000
acute respiratory failure
b/l pleural effusions
c/f HFpEF
hyponatremia
anemia
Plan
Plan
Initiate Casodex. Outpt F/U to start Orgovyx.
Bone Scan.
Office aware he needs F/U
Subjective/Objective
Chief Complaint
ACS Heme Onc
Subjective
Diarrhea after PO contrast. Otherwise no c/o.
Vital Signs:
Vital Signs
Temp Pulse Resp BP Pulse Ox
97.5 F 84 16 117/65 97
01/19/24 07:30 01/19/24 08:33 01/19/24 08:33 01/19/24 07:30 01/19/24 08:33
Lab Results:
Laboratory Data
WBC 9.1 10^3/uL (4.8-10.8) 01/19/24 05:52
Hgb 8.2 g/dL (13.0-18.0) L 01/19/24 08:31
Plt Count 170 10^3/uL (130-400) 01/19/24 05:52
eGFR > 60.00 01/19/24 05:52
Laboratory Tests
01/18/24 01/19/24
05:46 05:52
PSA Screen 1120.00 H 974.00 H
Laboratory Tests
06/24/22
09:41
PSA Screen 17.00 H
Physical Exam
Cardiology: S1 and S2
Pulmonary: Clear
GI: Soft
Extremities: Edema
[2024-01-19] MEDS: CASODEX 50 MG PO (11:46)
[2024-01-19] MEDS: TYLENOL 650 MG PO ×2 (11:49→21:49)
[2024-01-19 11:51] LABS: Body Fluid pH 7.46
[2024-01-19 11:52] LABS: Body Fluid Mononuclear 89.2 %; Body Fluid Polymorphonuclear 10.8 %; Body Fluid WBC 121 /CUMM
[2024-01-19 11:54] LABS: Body Fluid Second Tech AMA
--- NOTE | 2024-01-19 11:55 | PTCARENOTE ---
Received patient from IR at 1130. Patient AAOx2, c/o left shoulder discomfort. Tylenol given and warm pack applied to left shoulder. Bandaid left lower back CDI. Patient is eating at present, call [facility] in reach.
[2024-01-19 12:06] LABS: Body Fluid Amylase < 30 U/L; Body Fluid Glucose 111 mg/dl; Body Fluid LDH < 90 U/L; Body Fluid Protein 2.3 g/dl; Body Fluid Triglycerides < 30 mg/dl
--- NOTE | 2024-01-19 14:02 | CM ---
CM spoke with patients daughter, Jade, regarding patient discharge planning. Per daughter, patient has been having a hard time doing the stairs at home, getting around to make food, get off the toilet, etc. Daughter reports patient lives alone in a
one story home but has three steps down to the front door, patient was having trouble going down the steps. Daughter feels patient would benefit from short term rehab prior to returning home. Daughter reports when patient has had falls in the past,
she and her sister and would assist patient, daughter reports she can no longer do this. TT to Hospitalist for PT/OT orders. Daughter requesting [facility] as SNF choice. CM will send referrals once PT/OT evals are complete. CM will continue
to follow for all discharge planning needs.
Plan; home with therapy vs SNF, watch for PT/OT recommendations.
[2024-01-19] MEDS: LOVENOX 40 MG SC (17:22)
[2024-01-20] VITALS (10 sets, daily range): BP systolic 100–121; BP diastolic 48–75; PULSE 62; O2SAT 91–98; BMI 27.2
[2024-01-20 06:58] LABS: Hematocrit 23.2 % (39.0-52.0); Hemoglobin 7.7 g/dL (13.0-18.0); Mean Corp Hgb Conc. 33.2 g/dL (33.0-37.0); Mean Corpuscular Hgb 30.2 pg (27.0-31.0); Mean Platelet Volume 9.5 fL (7.4-10.4); Platelet Count 153 10^3/uL (130-400); Red Blood Cell Count 2.55 10^6/uL (4.70-6.10); Red Cell Dist. Width 20.4 % (11.5-14.5)
[2024-01-20 07:28] LABS: ALT (SGPT) 12 U/L (0-50); AST (SGOT) 57 U/L (17-59); Albumin 2.4 g/dl (3.5-5.0); Alkaline Phosphatase 636 U/L (38-126); Blood Urea Nitrogen 48 mg/dl (9-20); Calcium 7.5 mg/dl (8.4-10.2); Carbon Dioxide 23 mmol/L (22-30); Chloride 98 mmol/L (98-107); Direct Bilirubin 0.1 mg/dl (0.0-0.4); Estimated Creatinine Clearance 45 ml/min; Glucose 82 mg/dl (70-99); Magnesium 2.2 mg/dl (1.6-2.3); Phosphorus 4.3 mg/dl (2.5-4.5); Potassium 4.6 mmol/L (3.5-5.1); Sodium 128 mmol/L (135-145); Total Bilirubin 0.2 mg/dl (0.2-1.3); Total Protein 4.5 g/dl (6.3-8.2); eGFR 47.95
--- NOTE | 2024-01-20 07:30 | W.PN.HOSP.TC ---
Today's Communication/Plan
-
fluid restriction
hold lasix
monitor renal function
daily weight I/O
check urine Na osmolality serum osmolality
Assessment / Plan
Assessment / Plan
Physical Exam
General: No Apparent Distress and Appears Chronically Ill
HEENT: NormoCephalic, Anicteric, Moist mucous membranes, Atraumatic, PERRLA and Neck Nontender
Respiratory: Clear, Non Labored Respirations and Decreased Breath Sounds
Cardiac: S1/S2, Regular Rhythm and Tachycardia
GI: Soft, Non Tender, Non Distended and Normal Bowel Sounds
Musculoskeletal: No Clubbing, No Cyanosis, +2 lower ext edema
Skin: Warm and Dry
Neuro: AO x 3
Hematologic/Lymphatic: No Lymphadenopathy
Psych: Calm
Patient with no known significant past medical history except a diagnosis of COPD as outpatient few years ago, quit smoking over 45 years ago presents to the emergency department with worsening dyspnea on exertion and shortness of breath. He has no
chest pain. He is satting 95% on room air. Found to have moderate bilateral pleural effusion and possibility of bony mets on x-ray. His BNP is elevated. He is tachycardic at rest over a couple hours in the emergency department. Ordered notable
findings or elevated alk phos level. On exam in addition to the pleural effusion patient had no crackles on exam he was not wheezing he does have bilateral lower extremity edema with right greater than left.
PLAN:
# SOB -Symptoms ongoing for 3 weeks and worsening without wheezing cough or respiratory distress at rest. He has severe dyspnea exertion but no chest pain. He had bilateral pleural effusion and lower extremity edema. BNP is borderline in the
590s. dyspnea on exertion likely secondary to pleural effusions vs physical deconditioning
- no indication for abx
- Pulm eval appreciated no indications for steroids since discontinued
- supplemental oxygen as needed (currently on room air)
# Pleural effusions - likely malignant
- CT chest appreciated no PE but concerning for prostate ca metastatic disease
- pulmonary consultation appreciated
- IR consult appreciated b/l thoracentesis completed cytology pending
-Oncology consult appreciated Casodex started, bone scan pending
# Tachycardia likely due to pleural effusions vs pain/discomfort
# Volume overload - possible CHF, BNP 590 is equivocal
- ECHO appreciated EF 55-60% relatively normal study, aortic sclerosis w/o stenosis
-CHF unlikely as per discussion with Cardiology
- fluid restriction tighten d/t hyponatremia as below
-empiric lasix IV 40 mg daily placed on hold d/t rise in Cr mild VIVIAN
VIVIAN
Progressive Hyponatremia
check urine sodium osmolality and serum osmolality
possibly d/t diuresis since placed on hold
Fluid restriction tighten
Monitor Na renal function
# Elevated alkphos likely from bone mets
-bone scan pending
-follow up serum electrophoresis
PT/OT appreciated SNF rehab
DVT PPX - lovenox sq
Code status - Full code
Discussed with patient and patient's daughters Jade and Génesis
I spent a total of 50 minutes with the patient or on the floor. More than 50% of this time involved counseling and coordination of care.
Anticipated Discharge: 24 - 48 hours
Subjective/Interval History
-
Date of Service: January 20, 2024
No acute distress. Reports left sided soreness following large volume thoracentesis. Patient also recently had right thoracentesis performed today. Otherwise no new acute issues. Reports overall breathing since improved.
Objective Data
-
Labs:
Laboratory Results
01/20/24
06:14
WBC 8.0
Hgb 7.7 L
Hct 23.2 L
Plt Count 153
Sodium 128 L
Potassium 4.6
Chloride 98
Carbon Dioxide 23
BUN 48 H
Creatinine 1.5 H
Glucose 82
Calcium 7.5 L
Total Bilirubin 0.2
AST 57
ALT 12
Alkaline Phosphatase 636 H
Vital Signs:
Vital Signs
Temp Pulse Resp BP Pulse Ox
97.5 F 92 18 115/56 96
01/20/24 03:42 01/20/24 03:42 01/20/24 03:42 01/20/24 03:42 01/20/24 03:42
I&O
01/19/24 01/20/24 01/21/24
06:59 06:59 06:59
Intake Total 1200 / 1200
Output Total 325 / 325 660 / 660
Balance -325 / -325 540 / 540
[2024-01-20] MEDS: LIDOCAINE 4% PATCH 1 PATCH TOPICAL ×2 (08:12→11:53)
[2024-01-20] MEDS: PEPCID 20 MG PO (08:13)
[2024-01-20] MEDS: LASIX 40 MG IV (08:13)
[2024-01-20] MEDS: CASODEX 50 MG PO (08:13)
[2024-01-20] MEDS: TYLENOL 650 MG PO ×2 (08:16→22:15)
[2024-01-20] MEDS: DUONEB 3 ML INH ×3 (08:20→19:57)
--- NOTE | 2024-01-20 08:50 | W.PN.ONC2 ---
Today's Communication / Plan
-
Casodex
await pleural fluid cytology
bone scan
OP follow up
Impression
Impression
suspected Met Prostate Ca with PSA > 1000
b/l pleural effusions, 2D echo LVEF 50-60%, normal diastolic function
hyponatremia
VIVIAN
anemia, iron studies c/w AOCD, no b12 or folate deficiency, SPEP/FLC pending
Plan
Plan
Casodex initiated 01/18. Outpt F/U to start Orgovyx.
f/u Bone Scan
f/u pleural fluid cytology
f/u SPEP, FLC
Office aware he needs F/U
Subjective/Objective
Chief Complaint
no new complaints
Subjective
chronic LBP at baseline
encouraged OOB, 2 assist to stand, ambulatory with walker
Vital Signs:
Vital Signs
Temp Pulse Resp BP Pulse Ox
97.5 F 86 18 107/48 96
01/20/24 03:42 01/20/24 08:26 01/20/24 08:26 01/20/24 08:13 01/20/24 08:26
Lab Results:
Laboratory Data
WBC 8.0 10^3/uL (4.8-10.8) 01/20/24 06:14
Hgb 7.7 g/dL (13.0-18.0) L 01/20/24 06:14
Plt Count 153 10^3/uL (130-400) 01/20/24 06:14
eGFR 47.95 01/20/24 06:14
Physical Exam
General: No Apparent Distress and Appears Chronically Ill
HEENT: Moist Mucous Membranes; Negative Jaundice
Cardiology: S1, S2 ,tachycardia
Pulmonary: Clear, diminished b/l bases
GI: Soft
Extremities: Pulses Present and B/L LE pitting edema R>L
Neurology: Non Focal
Skin: Warm
Review of Systems
Review of Systems
ROS notable for subjective, otherwise negative
[2024-01-20] MEDS: DUONEB INH (11:23)
[2024-01-20 11:31] LABS: Body Fluid pH 7.44
[2024-01-20 11:51] LABS: Body Fluid Amylase < 30 U/L; Body Fluid Glucose 100 mg/dl; Body Fluid LDH 96 U/L; Body Fluid Protein 2.3 g/dl; Body Fluid Triglycerides < 30 mg/dl
[2024-01-20 11:54] LABS: Body Fluid WBC 160 /CUMM
[2024-01-20 11:56] LABS: Body Fluid Second Tech SS
--- NOTE | 2024-01-20 14:01 | W.PN.PUL3 ---
Today's Communication / Plan
-
Follow-up pleural fluid cytology
Continue to observe off antibiotics
May continue DuoNebs while in the hospital. Can readdress in the outpatient setting.
No indication for systemic corticosteroids
Continue diuresis
No additional recommendation from the pulmonary perspective
Sign off
Assessment
-
Assessment: 78-year-old male former tobacco smoker with a past medical history of GERD, PUD, history of prostatitis, RBBB, PTSD/LYNSEY, depression, right wrist arthritis, right carpal tunnel syndrome, history of recurrent bronchitis and chronic back
pain who presents with shortness of breath, generalized weakness, fast heart rate and low urine output. Symptoms have been ongoing for about 1 month. He has a nebulizer at home which she has been using intermittently, which have been less
effective over the last few weeks. He has an occasional morning dry cough. No fevers, chills or recent sick contacts. He is not feeling short of breath even while walking at normal pace after several feet. In the ER he was afebrile to 97.6 �F,
tachycardic to 132, tachypneic to 24, BP 123/72 and saturating 95% on room air. EKG showed sinus tachycardia with RBBB. Labs showed anemia to 9, sodium 133, glucose 121, ALP 82, troponin WNL at 0.027, proBNP slightly elevated at 595, and COVID-19
antigen negative. CXR showed bilateral pleural effusions, with CT chest showing no evidence of an acute PE, with large bilateral pleural effusions and suspected widespread sclerotic bony metastatic disease. He was given DuoNebs,
ceftriaxone/Zithromax, Decadron and admitted to the floor for further management. Pulmonary service now consulted for additional management/recommendations.
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
Impression:
#Acute respiratory failure with hypoxia due to bilateral pleural effusions
#Acute HFpEF exacerbation
#Anemia
#Elevated PSA with concern for metastatic prostate cancer
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
#Hyponatremia (mild)
#Elevated ALP, LDH + GGT
#Reported Hx of COPD
#Multiple pulmonary nodules seen in the right middle lobe (<6mm in size)
Plan:
Respiratory status improved after thoracentesis. Currently on room air, supplemental oxygen has been weaned off 01/20/2024
Not bronchospastic on exam
- Shortness of breath + hypoxia - undoubtedly due to bilateral pleural effusions, and in the setting of widespread sclerotic bony lesions suspected to be metastasis, effusions may be malignant although given they are bilateral there is high concern
for acute decompensated heart failure.
- left-sided [id number]/16/2024- 1.4 L of transudative clear-colored fluid;
-Right pleural thoracentesis 01/20/2024-1.4 L of yellow pleural fluid.
- Continue diuresis continue diuretics as able.
- Echo done on 01/18/2024 shows normal LV systolic function with EF 55-60% with no regional WMA, normal diastolic function, normal RV size and function with normal RA size, and no evidence of P
-Pleural effusion may be metastatic as well. Cytology pending.
Oncology correspondence reviewed, due to concern for widely metastatic prostate cancer Casodex started. PSA >1000 They have recommended oncology follow-up
-Not bronchospastic on exam. No indication for systemic corticosteroids.
- A continue to observe off antibiotics.
- He apparently has a reported Hx of COPD --> continue Duonebs QID with prn nebulized bronchodilators and keep SpO2 88-95%. While in the hospital
- Outpatient follow up with full PFTs to evaluate for presence of COPD and for management of ? COPD.
- Outpatient follow up with repeat CT chest in 3 months to assess stability of RML nodules
Oncology consulted and recommendations appreciated; PSA is markedly elevated-likely metastatic prostate cancer.
On Casodex now
For bone scan
Outpatient oncology follow-up
- DVT ppx: LMWH
Outpatient follow-up will be arranged for full PFTs and management of his COPD, as well as repeat imaging to follow-up his known RML lung nodules

Data:
CT Abd/Pelvis with IV contrast 01/18/2024:
No acute disease of the abdomen or pelvis.
Findings consistent with severe blastic osseous metastatic disease. Stable
Large bilateral pleural effusions. Stable
Mild bibasilar consolidation. Stable
Right upper lobe pulmonary nodules. Continued surveillance recommended. The patient moved during today's earlier exam limiting evaluation.
CTA Chest 01/18/2024:
No findings to confirm central pulmonary embolism with evaluation of the lower lobe pulmonary arterial branches bilaterally markedly limited by moderate to large bilateral pleural effusions.
Suspected marked widespread sclerotic bony metastatic disease. Prostate carcinoma would be most likely differential diagnostic possibility.
CXR 01/17/2024:
Moderate bilateral pleural effusions. Underlying pneumonia not excluded.
Possible bony metastasis. This would better be evaluated by a bone scan if not already known.
TTE 01/18/2024:
Normal left ventricular chamber size. Normal left ventricular systolic
function. Left ventricular ejection fraction is 55-60% by visual assessment.
Normal regional wall motion. Normal left ventricular wall thickness. Normal
diastolic function.
Top normal right ventricular size. Normal right ventricular systolic function.
Aortic sclerosis without stenosis.
No prior study for comparison
Subjective Data
-
Date of Service:
Date of Service: January 20, 2024
Chief Complaint: Pulmonary Follow Up (Pleural effusion)
Review of Systems
General: Fever (n)
Cardiopulmonary: Dyspnea
GI: Abdominal Pain (n) and Nausea (n)
Objective Data
Data Reviewed
Vital Signs / I&O / Oxygen:
Vital Signs
Temp Pulse Resp BP Pulse Ox
97.7 F 98 28 101/48 96
01/20/24 12:05 01/20/24 12:05 01/20/24 12:05 01/20/24 12:05 01/20/24 12:05
Intake and Output
01/19/24 01/20/24 01/21/24
06:59 06:59 06:59
Intake Total 1200 / 1200
Output Total 325 / 325 660 / 660
Balance -325 / -325 540 / 540
SaO2 96
Physical Exam
General: Respiratory Distress (negative), Comfortable, Chills (negative) and Sweats (negative)
HEENT: Normocephalic and Anicteric
Cardiovascular: S1-S2 and Peripheral Edema (+1 lower extremity pitting edema bilaterally)
Respiratory: Wheeze (negative), Crackles (Left base), Rhonchi (negative), Non-Labored Respirations and Other (Diminished breath sounds at the right base)
GI: Soft, Non Distended, Non Tender and Normal Bowel Sounds
Neurology: AO x 3 and Tremors (negative)
Skin: Warm, Dry, Cyanosis (negative) and Jaundice (negative)
Labs/Micro/Reports
Lab Data
01/20/24 06:14
01/20/24 06:14
Microbiology
01/19/24 10:56 Pleural Fluid Body Fluid Culture - Preliminary
No Growth After 18-24 Hours
01/19/24 10:56 Pleural Fluid Gram Stain - Preliminary
01/19/24 10:56 Pleural Fluid Fungal Culture - Preliminary
Culture in progress.
Positive cultures are reported as soon as detected.
Final report to follow in four to five weeks.
--- NOTE | 2024-01-20 14:06 | CM ---
Chart reviewed. PT/OT rec. SNF @ d/c
Pt's daughter requested [facility] as SNF choice.
CM completed referral via [facility], awaiting determination. No auth is required
Depending on [facility] bed availability, additional referrals will be completed
Will discuss w/ family additional SNF choices
Plan: SNF @ d/c
[2024-01-20] MEDS: LOVENOX 40 MG SC (17:35)
[2024-01-20 18:43] LABS: Blood Urea Nitrogen 51 mg/dl (9-20); Calcium 7.6 mg/dl (8.4-10.2); Carbon Dioxide 24 mmol/L (22-30); Chloride 96 mmol/L (98-107); Estimated Creatinine Clearance 42 ml/min; Glucose 98 mg/dl (70-99); Sodium 126 mmol/L (135-145); eGFR 44.38
[2024-01-20 18:58] LABS: NT-proBNP 649 pg/ml
[2024-01-20 22:37] LABS: Osmolality Serum 280 mOsm/kg (275-300)
[2024-01-21 03:08] VITALS: BP 113/54
[2024-01-21 06:00] VITALS: BMI 27.1
[2024-01-21 06:33] LABS: Hematocrit 22.6 % (39.0-52.0); Hemoglobin 7.4 g/dL (13.0-18.0); Mean Corp Hgb Conc. 32.7 g/dL (33.0-37.0); Mean Corpuscular Hgb 29.2 pg (27.0-31.0); Mean Corpuscular Volume 89.3 fL (80.0-94.0); Mean Platelet Volume 9.4 fL (7.4-10.4); Platelet Count 147 10^3/uL (130-400); Red Blood Cell Count 2.53 10^6/uL (4.70-6.10); Red Cell Dist. Width 20.2 % (11.5-14.5); White Blood Cell Count 6.7 10^3/uL (4.8-10.8)
[2024-01-21 07:07] LABS: Blood Urea Nitrogen 53 mg/dl (9-20); Calcium 7.3 mg/dl (8.4-10.2); Carbon Dioxide 22 mmol/L (22-30); Chloride 98 mmol/L (98-107); Estimated Creatinine Clearance 39 ml/min; Glucose 79 mg/dl (70-99); Magnesium 2.2 mg/dl (1.6-2.3); Phosphorus 4.7 mg/dl (2.5-4.5); Potassium 4.6 mmol/L (3.5-5.1); Sodium 128 mmol/L (135-145); eGFR 41.26
[2024-01-21] MEDS: DUONEB 3 ML INH ×4 (07:14→20:41)
--- NOTE | 2024-01-21 07:22 | W.PN.HOSP.TC ---
Today's Communication/Plan
-
SHIRA compressive wraps Lower ext's b/l
Fluid restriction as per nephro
cont monitoring Na, renal function
PT/OT
Assessment / Plan
Assessment / Plan
Physical Exam
General: No Apparent Distress and Appears Chronically Ill
HEENT: NormoCephalic, Anicteric, Moist mucous membranes, Atraumatic, PERRLA and Neck Nontender
Respiratory: Clear, Non Labored Respirations and Decreased Breath Sounds
Cardiac: S1/S2, Regular Rhythm and Tachycardia
GI: Soft, Non Tender, Non Distended and Normal Bowel Sounds
Musculoskeletal: No Clubbing, No Cyanosis, +2 lower ext edema
Skin: Warm and Dry
Neuro: AO x 3
Psych: Calm
Patient with no known significant past medical history except a diagnosis of COPD as outpatient few years ago, quit smoking over 45 years ago presents to the emergency department with worsening dyspnea on exertion and shortness of breath. He has no
chest pain. He is satting 95% on room air. Found to have moderate bilateral pleural effusion and possibility of bony mets on x-ray. His BNP is elevated. He is tachycardic at rest over a couple hours in the emergency department. Ordered notable
findings or elevated alk phos level. On exam in addition to the pleural effusion patient had no crackles on exam he was not wheezing he does have bilateral lower extremity edema with right greater than left.
PLAN:
# SOB -Symptoms ongoing for 3 weeks and worsening without wheezing cough or respiratory distress at rest. He has severe dyspnea exertion but no chest pain. He had bilateral pleural effusion and lower extremity edema. BNP relatively low 500s 600s.
dyspnea on exertion likely secondary to pleural effusions vs physical deconditioning
- no indication for abx
- Pulm eval appreciated no indications for steroids since discontinued
- supplemental oxygen as needed (currently on room air)
# Pleural effusions - likely malignant
- CT chest appreciated no PE but concerning for prostate ca metastatic disease
- pulmonary consultation appreciated
- IR consult appreciated b/l thoracentesis completed cytology pending
-Oncology consult appreciated Casodex started, bone scan completed noting diffuse metastatic dz to bone consistent w/ 'superscan' per report
# Tachycardia likely due to pleural effusions vs pain/discomfort
#Lower ext edema suspect lymphedema vs anasarca 2/2 hypoalbuminemia
#possible CHF ruled out, BNP 590 is equivocal
- ECHO appreciated EF 55-60% relatively normal study, aortic sclerosis w/o stenosis
-CHF unlikely as per discussion with Cardiology
- fluid restriction tighten d/t hyponatremia as below
-empiric lasix IV 40 mg daily placed on hold d/t rise in Cr mild VIVIAN
-Venous duplex neg for dvt
-compression SHIRA wraps b/l knee high ordered
VIVIAN
Progressive Hyponatremia
Nephro eval appreciated
urine sodium osmolality and serum osmolality noted
likely d/t diuresis since placed on hold
Fluid restriction tighten
Monitor Na renal function
# Elevated alkphos likely from bone mets
-bone scan appreciated as above
-follow up serum electrophoresis
PT/OT appreciated SNF rehab
DVT PPX - lovenox sq
Code status - Full code
Discussed with patient and patient's daughter Jade
I spent a total of 50 minutes with the patient or on the floor. More than 50% of this time involved counseling and coordination of care.
Anticipated Discharge: 24 - 48 hours
Subjective/Interval History
-
Date of Service: January 21, 2024
no acute distress sitting up comfortably in chair. overall reports feeling well. Pain controlled. Lower ext swelling pitting edema b/l persists.
Objective Data
-
Labs:
Laboratory Results
01/21/24
05:59
WBC 6.7
Hgb 7.4 L
Hct 22.6 L
Plt Count 147
Sodium 128 L
Potassium 4.6
Chloride 98
Carbon Dioxide 22
BUN 53 H
Creatinine 1.7 H
Glucose 79
Calcium 7.3 L
Vital Signs:
Vital Signs
Temp Pulse Resp BP Pulse Ox
98.4 F 88 16 113/54 93
01/21/24 03:08 01/21/24 07:16 01/21/24 07:16 01/21/24 03:08 01/21/24 07:16
I&O
01/20/24 01/21/24 01/22/24
06:59 06:59 06:59
Intake Total 1200 / 1200 1450 / 1450
Output Total 660 / 660 210 / 210
Balance 540 / 540 1240 / 1240
[2024-01-21 07:42] VITALS: BP 111/56
[2024-01-21] MEDS: PEPCID 20 MG PO (08:25)
[2024-01-21] MEDS: CASODEX 50 MG PO (08:25)
[2024-01-21] MEDS: LIDOCAINE 4% PATCH 1 PATCH TOPICAL ×2 (08:26)
[2024-01-21 09:56] LABS: Osmolality Urine 277 mOsm/kg (300-900)
[2024-01-21 10:07] LABS: Protein/creatinine Ratio 0.3; Urine Protein 13 mg/dl; Urine Sodium < 5 mmol/L (30-90)
[2024-01-21] MEDS: CALCIUM GLUCONATE 100 IV (10:17)
[2024-01-21 11:53] VITALS: BP 91/54
[2024-01-21 12:01] LABS: ALT (SGPT) 16 U/L (0-50); AST (SGOT) 59 U/L (17-59); Albumin 2.4 g/dl (3.5-5.0); Alkaline Phosphatase 586 U/L (38-126); Direct Bilirubin 0.2 mg/dl (0.0-0.4); Total Bilirubin 0.3 mg/dl (0.2-1.3); Total Protein 4.5 g/dl (6.3-8.2)
--- NOTE | 2024-01-21 13:28 | W.CON.NEPH ---
Consultation
-
Date/Time Consultation Requested: 01/21/2024 7:30 AM
Date/Time Consultation Performed: 01/21/2024 1:30 PM
Requesting Provider: Dr. Crawford
Performing Provider: Dr. Mackay
Reason for Consultation: VIVIAN/Hyponatremia
Medical History
-
Chief Complaint: Acute kidney injury/
History of Present Illness:
The patient is a 78-year-old male who has a past medical history of recurrent/chronic bronchitis, difficulties on hyperlipidemia, chronic back pain currently not on any medications except for intermittent use of nebulizers who presented to the
emergency department with approximately 3 weeks to 1 month of increasing shortness of breath and dyspnea exertion.
Patient reported that prior to this episode he had been almost in usual state of health with intermittent episodes of shortness of breath associated with nonproductive cough that improves with nebulizer treatments. Over the last few weeks he has
had decreased effectiveness of his nebulizer treatments. He has occasional cough only in the mornings. And it is nonproductive. Denies having fevers or chills. He has been no sick contacts. He reports that he did have increased right ankle
edema secondary to a sprain recently. However over the last few days he has noted worsening dyspnea on exertion and is not able to walk even across his room. He denies orthopnea or PND. He denies any known weight gain. He reports decreased
appetite mostly due to decreased interest in cooking secondary to debilitation. Patient denies palpitations lightheadedness or dizziness. He quit smoking about 45 years ago. He reports that his usual colonoscopy has been done without history of
malignancy. He denies having chest pain pleuritic or otherwise.
In the emergency department he was afebrile, oxygen saturation was 95% on room air blood pressure 122/87 he was tachycardic to 116. ECG showed sinus tachycardia with a right bundle branch block. No acute ST or T wave changes. BNP was 520. He had
no leukocytosis hemoglobin was 9 which is similar to his previous and he had normal platelet count. Sodium was 133, creatinine 1.1. LFTs show elevated alk phos to 882 and albumin was low at 2.9. Chest x-ray shows moderate bilateral pleural
effusion and question of bony metastasis. Patient presumed to have metastatic prostate cancer his PSA is greater than 1000 . IV Lasix was provided for concern of congestive heart failure given bilateral effusions and shortness of breath . Over
the course of his admission his creatinine has now climbed from 1.1-1.7 with associated hyponatremia and nephrology was asked to see the patient.
Past Medical History
Hyperlipidemia
Chronic back pain
Chronic bronchitis
Social History
Tobacco: Former Smoker
Family History
no ckd
Family History: Not Pertinent
Allergies / Home Medications
Allergy/AdvReac Type Severity Reaction Status Date / Time
No Known Allergies Allergy Verified 09/04/16 11:34
Review of Systems
-
History Source: Patient
All other systems: Negative unless noted
Respiratory: Other (Shortness of breath)
Physical Exam
Vital Signs
Vital Signs
Temp Pulse Resp BP Pulse Ox
97.7 F 110 16 91/54 98
01/21/24 11:53 01/21/24 11:53 01/21/24 11:53 01/21/24 11:53 01/21/24 11:53
Lab Results
01/21/24 05:59
01/21/24 05:59
WBC 6.7 10^3/uL (4.8-10.8) 01/21/24 05:59
RBC 2.53 10^6/uL (4.70-6.10) L 01/21/24 05:59
Hgb 7.4 g/dL (13.0-18.0) L 01/21/24 05:59
Hct 22.6 % (39.0-52.0) L 01/21/24 05:59
Plt Count 147 10^3/uL (130-400) 01/21/24 05:59
Sodium 128 mmol/L (135-145) L 01/21/24 05:59
Potassium 4.6 mmol/L (3.5-5.1) 01/21/24 05:59
Chloride 98 mmol/L (98-107) 01/21/24 05:59
Carbon Dioxide 22 mmol/L (22-30) 01/21/24 05:59
BUN 53 mg/dl (9-20) H 01/21/24 05:59
Creatinine 1.7 mg/dL (0.7-1.3) H 01/21/24 05:59
eGFR 41.26 01/21/24 05:59
Glucose 79 mg/dl (70-99) 01/21/24 05:59
Calcium 7.3 mg/dl (8.4-10.2) L 01/21/24 05:59
Phosphorus 4.7 mg/dl (2.5-4.5) H 01/21/24 05:59
Ovc-W-Ssyicucxege Pept 649 pg/ml 01/20/24 18:09
Albumin 2.4 g/dl (3.5-5.0) L 01/21/24 05:59
Physical Exam
General: AOx3, Nontoxic , NAD
HEENT: PERRL, EOMI, Anicteric, Conjunctivae Clear, Ear/Nose Intact, Hearing Normal, Oropharynx Clear/Moist, Dentition Intact, Facial Symmetry, Neck Supple, Neck: Trachea Midline, No JVD and No Thyromegaly, no Bruits
Respiratory: decreased breathsounds at bases bilaterally with normal lung excursion
Cardiac: S1/S2 and Regular Rate/Rhythm
Breast: Deferred by me
Abdomen: Soft, Nontender, Nondistended, Normal Bowel Sounds and No Hepatosplenomegaly
Rectal: Deferred by Provider
Genito-urinary: No Costovertebral Tenderness
Extremities: No Clubbing, No Cyanosis and 1 plus pitting Edema
Skin: No Rash or open lesions
Neuro: Nonfocal/Grossly Intact, CN II-XII (Intact) and Strength (Musculoskeletal exam 5 out of 5 both upper and lower extremities)
Hematologic/Lymphatic: No Cervical Lymphadenopathy, No Submandibular Lymphadenopathy and No Supraclavicular Lymphadenopathy
Psych: Mood/afflect pleasant, Insight/judgement good and Appropriate
Vascular: plus 2 pedal and radial pulses
Respiratory: Other (Shortness of breath)
Data Reviewed
-
CT Scan: Report Reviewed by me (Kidneys without obstruction findings consistent with severe blastic osseous metastatic disease large bilateral pleural effusion)
Labs: Labs Reviewed by me (BMP CBC urinalysis)
Old Records: Reviewed (Reviewed old records from 06/24/2022 serum creatinine 0.7)
Assessment/Plan
-
Impression:
VIVIAN
Newly diagnosed metastatic prostate cancer
Hyponatremia
Acute respiratory failure with bilateral pleural effusions/pulmonary nodules
History of COPD
Anemia
Hypoalbuminemia
Plan:
VIVIAN:
-Likely due to to prerenal stimulus following diuresis as patient's creatinine has risen over the course of the admission
-CT scan of kidneys revealed no abnormalities no hydronephrosis
-I would still check postvoid bladder scan
-Urine protein to creatinine ratio is 300 mg
-UA is pending
-Fractional excretion of sodium was less than 1% consistent with prerenal stimulus
-Hold diuretics, hypoalbuminemia likely at least partially responsible for the patient's pleural effusions and edema
Hyponatremia
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
-Tighten fluid restriction
-I will utilize [facility] if hyponatremia exacerbates
[2024-01-21 14:51] VITALS: BP 101/55
--- NOTE | 2024-01-21 15:17 | CM ---
Addendum entered by Veronica Caicedo 01/21/24 16:29:
Spoke w/ daughter who prefer 5 star SNF choices.
CM emailed daughter Medicare.gov list.
Follow up w/ daughter for additional SNF choices
Original Note:
Chart reviewed.
Per hospitalist pt [facility]. [facility] d/c on Wednesday.
CM spoke w/ daughter re [facility] determination. CM shared they do not have any beds
Daughter agreeable to additional referral to [facility]. Daughter stated she will explore other choices.
Referral completed in [facility], awaiting determination
No auth required
Plan: SNF at d/c
[2024-01-21] MEDS: TYLENOL 650 MG PO (17:11)
[2024-01-21 17:12] LABS: Urine Albumin Trace (Neg - Trace); Urine Bilirubin Negative (Negative); Urine Character Clear (Clear); Urine Color Yellow; Urine Glucose Negative (Negative); Urine Ketone Negative (Negative); Urine Leukocyte Negative (Negative); Urine Nitrite Negative (Negative); Urine Occult Blood 2+ (Negative); Urine Urobilinogen Negative (Neg - 1+)
[2024-01-21] MEDS: LOVENOX 40 MG SC (17:12)
[2024-01-21 17:26] LABS: Urine Uric Acid Crystals Present
[2024-01-21 17:27] LABS: Urine Bacteria Moderate (Negative)
[2024-01-21 19:00] VITALS: BP 108/49
[2024-01-21 22:13] VITALS: BMI 27.1
[2024-01-21 23:00] VITALS: BP 108/54
[2024-01-22 03:00] VITALS: BP 122/60
[2024-01-22 06:00] VITALS: BMI 27.3
[2024-01-22 07:00] VITALS: BP 132/66
[2024-01-22 07:35] LABS: Hematocrit 22.5 % (39.0-52.0); Hemoglobin 7.3 g/dL (13.0-18.0); Mean Corp Hgb Conc. 32.4 g/dL (33.0-37.0); Mean Corpuscular Hgb 29.3 pg (27.0-31.0); Mean Corpuscular Volume 90.4 fL (80.0-94.0); Mean Platelet Volume 9.8 fL (7.4-10.4); Platelet Count 144 10^3/uL (130-400); Red Blood Cell Count 2.49 10^6/uL (4.70-6.10); Red Cell Dist. Width 20.5 % (11.5-14.5); White Blood Cell Count 5.8 10^3/uL (4.8-10.8)
--- NOTE | 2024-01-22 07:47 | W.PN.HOSP.TC ---
Today's Communication/Plan
-
cont PT/OT
discharge planning SNF rehab
pain control
Assessment / Plan
Assessment / Plan
Physical Exam
General: No Apparent Distress and Appears Chronically Ill
HEENT: NormoCephalic, Anicteric, Moist mucous membranes, Atraumatic, PERRLA and Neck Nontender
Respiratory: Clear, Non Labored Respirations and Decreased Breath Sounds
Cardiac: S1/S2, Regular Rhythm and Tachycardia
GI: Soft, Non Tender, Non Distended and Normal Bowel Sounds
Musculoskeletal: No Clubbing, No Cyanosis, +2 lower ext edema
Skin: Warm and Dry
Neuro: AO x 3
Psych: Calm
Patient with no known significant past medical history except a diagnosis of COPD as outpatient few years ago, quit smoking over 45 years ago presents to the emergency department with worsening dyspnea on exertion and shortness of breath. He has no
chest pain. He is satting 95% on room air. Found to have moderate bilateral pleural effusion and possibility of bony mets on x-ray. His BNP is elevated. He is tachycardic at rest over a couple hours in the emergency department. Ordered notable
findings or elevated alk phos level. On exam in addition to the pleural effusion patient had no crackles on exam he was not wheezing he does have bilateral lower extremity edema with right greater than left.
PLAN:
# SOB -Symptoms ongoing for 3 weeks and worsening without wheezing cough or respiratory distress at rest. He has severe dyspnea exertion but no chest pain. He had bilateral pleural effusion and lower extremity edema. BNP relatively low 500s 600s.
dyspnea on exertion likely secondary to pleural effusions vs physical deconditioning
- no indication for abx
- Pulm eval appreciated no indications for steroids since discontinued
- supplemental oxygen as needed (currently on room air)
# Pleural effusions - likely malignant
- CT chest appreciated no PE but concerning for prostate ca metastatic disease
- pulmonary consultation appreciated
- IR consult appreciated b/l thoracentesis completed cytology pending
-Oncology consult appreciated Casodex started, bone scan completed noting diffuse metastatic dz to bone consistent w/ 'superscan' per report
# Tachycardia likely due to pleural effusions vs pain/discomfort
#Lower ext edema suspect lymphedema vs anasarca 2/2 hypoalbuminemia
#possible CHF ruled out, BNP 590 is equivocal
- ECHO appreciated EF 55-60% relatively normal study, aortic sclerosis w/o stenosis
-CHF unlikely as per discussion with Cardiology
- fluid restriction tighten d/t hyponatremia as below
-empiric lasix IV 40 mg daily placed on hold d/t rise in Cr mild VIVIAN
-Venous duplex neg for dvt
-compression SHIRA wraps b/l knee high ordered
VIVIAN
Progressive Hyponatremia
Nephro eval appreciated
urine sodium osmolality and serum osmolality noted
likely d/t diuresis since placed on hold
Fluid restriction tighten
Monitor Na renal function
Na Cr improving
# Elevated alkphos likely from bone mets
-bone scan appreciated as above
-follow up serum electrophoresis
PT/OT appreciated SNF rehab
DVT PPX - lovenox sq
Code status - Full code
Discussed with patient and patient's daughter Jade
I spent a total of 35 minutes with the patient or on the floor. More than 50% of this time involved counseling and coordination of care.
Anticipated Discharge: 24 - 48 hours
Subjective/Interval History
-
Date of Service: January 22, 2024
No acute distress. Appears comfortable sitting up in chair. Pain well controlled at this time
Objective Data
-
Labs:
Laboratory Results
01/22/24
07:23
WBC 5.8
Hgb 7.3 L
Hct 22.5 L
Plt Count 144
Sodium Pending
Potassium Pending
Chloride Pending
Carbon Dioxide Pending
BUN Pending
Creatinine Pending
Glucose Pending
Calcium Pending
Vital Signs:
Vital Signs
Temp Pulse Resp BP Pulse Ox
97.7 F 96 14 122/60 96
01/22/24 03:00 01/22/24 03:00 01/22/24 03:00 01/22/24 03:00 01/22/24 03:00
I&O
01/21/24 01/22/24 01/23/24
06:59 06:59 06:59
Intake Total 1450 / 1450 1260 / 1260 375 / 375
Output Total 210 / 210 350 / 350
Balance 1240 / 1240 910 / 910 375 / 375
[2024-01-22 07:56] LABS: Blood Urea Nitrogen 51 mg/dl (9-20); Calcium 7.1 mg/dl (8.4-10.2); Carbon Dioxide 23 mmol/L (22-30); Chloride 99 mmol/L (98-107); Estimated Creatinine Clearance 45 ml/min; Glucose 89 mg/dl (70-99); Magnesium 2.2 mg/dl (1.6-2.3); Phosphorus 4.5 mg/dl (2.5-4.5); Potassium 4.7 mmol/L (3.5-5.1); Sodium 131 mmol/L (135-145); eGFR 47.95
[2024-01-22] MEDS: DUONEB 3 ML INH ×4 (08:02→19:30)
[2024-01-22] MEDS: LIDOCAINE 4% PATCH 1 PATCH TOPICAL ×2 (08:42→08:44)
[2024-01-22] MEDS: CASODEX 50 MG PO (08:42)
[2024-01-22] MEDS: PEPCID 20 MG PO (08:43)
[2024-01-22] MEDS: CALCIUM GLUCONATE 100 IV (08:46)
[2024-01-22 09:43] LABS: Vitamin D, 25-OH*** 59.7 ng/mL (30-80)
[2024-01-22 11:00] VITALS: BP 149/88
--- NOTE | 2024-01-22 11:52 | W.PN.NEPH.PH ---
Today's Communication / Plan
-
Observe on fluid restriction
Holding diuretic
Assessment/Plan
-
Impression:
VIVIAN
Newly diagnosed metastatic prostate cancer
Hyponatremia
Acute respiratory failure with bilateral pleural effusions/pulmonary nodules
History of COPD
Anemia
Hypoalbuminemia
Plan:
VIVIAN:
-Likely due to to prerenal stimulus following diuresis as patient's creatinine has risen over the course of the admission
-CT scan of kidneys revealed no abnormalities no hydronephrosis
-Creatinine down to 1.5
-Urine protein to creatinine ratio is 300 mg
-UA 2+ blood trace
-Fractional excretion of sodium was less than 1% consistent with prerenal stimulus
-Hold diuretics, hypoalbuminemia likely at least partially responsible for the patient's pleural effusions and edema
Hyponatremia
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
-Tightened fluid restriction and sodium now up to 131
-I will utilize Samsca if hyponatremia exacerbates
-
-
Date of Service: January 22, 2024
CC / HPI / ROS
-
Chief Complaint:
Acute kidney injury
Hyponatremia
History of Present Illness:
Creatinine down to 1.5
Hemodynamically more stable
Sodium rising to 131
Review of Systems:
Nonoliguric
No shortness of breath
Remains edematous
Labs
-
Labs:
WBC 5.8 10^3/uL (4.8-10.8) 01/22/24 07:23
RBC 2.49 10^6/uL (4.70-6.10) L 01/22/24 07:23
Hgb 7.3 g/dL (13.0-18.0) L 01/22/24 07:23
Hct 22.5 % (39.0-52.0) L 01/22/24 07:23
Plt Count 144 10^3/uL (130-400) 01/22/24 07:23
Sodium 131 mmol/L (135-145) L 01/22/24 07:23
Potassium 4.7 mmol/L (3.5-5.1) 01/22/24 07:23
Chloride 99 mmol/L (98-107) 01/22/24 07:23
Carbon Dioxide 23 mmol/L (22-30) 01/22/24 07:23
BUN 51 mg/dl (9-20) H 01/22/24 07:23
Creatinine 1.5 mg/dL (0.7-1.3) H 01/22/24 07:23
eGFR 47.95 01/22/24 07:23
Glucose 89 mg/dl (70-99) 01/22/24 07:23
Calcium 7.1 mg/dl (8.4-10.2) L 01/22/24 07:23
Phosphorus 4.5 mg/dl (2.5-4.5) 01/22/24 07:23
Mqw-E-Ilbbjoayhte Pept 649 pg/ml 01/20/24 18:09
Albumin 2.4 g/dl (3.5-5.0) L 01/21/24 05:59
Physical Exam
-
Vital Signs:
Vital Signs
Temp Pulse Resp BP Pulse Ox
98.0 F 86 16 132/66 97
01/22/24 07:00 01/22/24 11:36 01/22/24 11:36 01/22/24 07:00 01/22/24 08:05
Cardiovascular:: Regular rate and rhythm
Respiratory:: Bilateral: Coarse
Lung Excursion:: Normal
Abdomen:: Nontender and Soft
Bowel Sounds:: Normal
Extremity Edema:: +2: Bilateral:
Angel Catheter: No
[2024-01-22 13:04] LABS: Albumin 2.44 g/dL (3.75-5.01); Alpha 1 Globulin 0.39 g/dL (0.19-0.46); Alpha 2 Globulin 0.71 g/dL (0.48-1.05); Monoclonal Protein 0.33 g/dL (<=0.00); SPEP IFE Reflex IFE Done; Total Protein-Electrophoresis 4.6 g/dL (6.3-8.2)
[2024-01-22 15:00] VITALS: BP 122/57
[2024-01-22] MEDS: LOVENOX 40 MG SC (17:27)
[2024-01-22 19:00] VITALS: BP 120/55
[2024-01-22] MEDS: OSCAL CAL 500 500 MG PO (21:10)
[2024-01-22] MEDS: TYLENOL #3 1 TABLET PO (21:12)
[2024-01-22 23:00] VITALS: BP 120/58
[2024-01-23] VITALS (7 sets, daily range): BP systolic 106–122; BP diastolic 51–66; PULSE 101; O2SAT 97; BMI 27.0
[2024-01-23] MEDS: TYLENOL #3 1 TABLET PO ×2 (03:17→17:56)
[2024-01-23 06:23] LABS: Hematocrit 22.4 % (39.0-52.0); Hemoglobin 7.2 g/dL (13.0-18.0); Mean Corp Hgb Conc. 32.1 g/dL (33.0-37.0); Mean Corpuscular Volume 90.3 fL (80.0-94.0); Mean Platelet Volume 9.8 fL (7.4-10.4); Platelet Count 154 10^3/uL (130-400); Red Blood Cell Count 2.48 10^6/uL (4.70-6.10); Red Cell Dist. Width 20.9 % (11.5-14.5); White Blood Cell Count 5.4 10^3/uL (4.8-10.8)
[2024-01-23 06:49] LABS: Blood Urea Nitrogen 40 mg/dl (9-20); Calcium 7.4 mg/dl (8.4-10.2); Carbon Dioxide 23 mmol/L (22-30); Chloride 100 mmol/L (98-107); Estimated Creatinine Clearance 56 ml/min; Glucose 84 mg/dl (70-99); Magnesium 2.2 mg/dl (1.6-2.3); Phosphorus 4.5 mg/dl (2.5-4.5); Potassium 4.7 mmol/L (3.5-5.1); Sodium 130 mmol/L (135-145); eGFR > 60.00
--- NOTE | 2024-01-23 07:13 | W.PN.HOSP.TC ---
Today's Communication/Plan
-
Discharge planning SNF rehab
Monitor H&H
Pain control
cont P/OT
Casodex as per Oncology
Fluid restriction as per Nephro
Ok to dc quality assurance monitor final
Assessment / Plan
Assessment / Plan
Physical Exam
General: No Apparent Distress and Appears Chronically Ill
HEENT: NormoCephalic, Anicteric, Moist mucous membranes, Atraumatic, PERRLA and Neck Nontender
Respiratory: Clear, Non Labored Respirations and Decreased Breath Sounds
Cardiac: S1/S2, Regular Rhythm and Tachycardia
GI: Soft, Non Tender, Non Distended and Normal Bowel Sounds
Musculoskeletal: No Clubbing, No Cyanosis, +1 lower ext edema (improved from +2)
Skin: Warm and Dry
Neuro: AO x 3
Psych: Calm
Patient with no known significant past medical history except a diagnosis of COPD as outpatient few years ago, quit smoking over 45 years ago presents to the emergency department with worsening dyspnea on exertion and shortness of breath. He has no
chest pain. He is satting 95% on room air. Found to have moderate bilateral pleural effusion and possibility of bony mets on x-ray. His BNP is elevated. He is tachycardic at rest over a couple hours in the emergency department. Ordered notable
findings or elevated alk phos level. On exam in addition to the pleural effusion patient had no crackles on exam he was not wheezing he does have bilateral lower extremity edema with right greater than left.
PLAN:
# SOB -Symptoms ongoing for 3 weeks and worsening without wheezing cough or respiratory distress at rest. He has severe dyspnea exertion but no chest pain. He had bilateral pleural effusion and lower extremity edema. BNP relatively low 500s 600s.
dyspnea on exertion likely secondary to pleural effusions vs physical deconditioning
- no indication for abx
- Pulm eval appreciated no indications for steroids since discontinued
- supplemental oxygen as needed (currently on room air)
# Pleural effusions - likely malignant
- CT chest appreciated no PE but concerning for prostate ca metastatic disease
- pulmonary consultation appreciated
- IR consult appreciated b/l thoracentesis completed cytology pending
-Oncology consult appreciated Casodex started, bone scan completed noting diffuse metastatic dz to bone consistent w/ 'superscan' per report
# Tachycardia likely due to pleural effusions vs pain/discomfort
#Lower ext edema suspect lymphedema vs anasarca 2/2 hypoalbuminemia
#possible CHF ruled out, BNP 590 is equivocal
- ECHO appreciated EF 55-60% relatively normal study, aortic sclerosis w/o stenosis
-CHF unlikely as per discussion with Cardiology
- fluid restriction tighten d/t hyponatremia as below
-empiric lasix IV 40 mg daily placed on hold d/t rise in Cr mild VIVIAN
-Venous duplex neg for dvt
-compression SHIRA wraps b/l knee high ordered
VIVIAN
Progressive Hyponatremia
Nephro eval appreciated
urine sodium osmolality and serum osmolality noted
likely d/t diuresis since placed on hold
Fluid restriction tighten
Monitor Na renal function
Na Cr improving
# Elevated alkphos likely from bone mets
-bone scan appreciated as above
-follow up serum electrophoresis
#Anemia
likely anemia of chronic disease
B12 Folate wnl
transfuse if hgb <7 (has not required so far), consented for transfusion if necessary
consent attached to medical chart/binder
PT/OT appreciated SNF rehab
DVT PPX - lovenox sq
Code status - Full code
Discussed with patient and patient's daughter Jade
I spent a total of 35 minutes with the patient or on the floor. More than 50% of this time involved counseling and coordination of care.
Anticipated Discharge: 24 - 48 hours
Subjective/Interval History
-
Date of Service: January 23, 2024
No acute distress sitting up comfortably in bed. Reports pain well controlled with Tylenol #3. Denies new acute issues.
Objective Data
-
Labs:
Laboratory Results
01/23/24
05:42
WBC 5.4
Hgb 7.2 L
Hct 22.4 L
Plt Count 154
Sodium 130 L
Potassium 4.7
Chloride 100
Carbon Dioxide 23
BUN 40 H
Creatinine 1.2
Glucose 84
Calcium 7.4 L
Vital Signs:
Vital Signs
Temp Pulse Resp BP Pulse Ox
97.7 F 88 14 117/63 99
01/23/24 03:00 01/23/24 03:00 01/23/24 03:00 01/23/24 03:00 01/23/24 03:00
I&O
01/22/24 01/23/24 01/24/24
06:59 06:59 06:59
Intake Total 1260 / 1260 375 / 375 180 / 180
Output Total 350 / 350 700 / 700
Balance 910 / 910 375 / 375 -520 / -520
[2024-01-23] MEDS: DUONEB 3 ML INH ×4 (07:30→19:22)
[2024-01-23] MEDS: PEPCID 20 MG PO (08:17)
[2024-01-23] MEDS: CASODEX 50 MG PO (08:17)
[2024-01-23] MEDS: OSCAL CAL 500 500 MG PO ×2 (08:17→20:44)
[2024-01-23] MEDS: LIDOCAINE 4% PATCH 1 PATCH TOPICAL ×2 (10:51)
--- NOTE | 2024-01-23 13:08 | W.PN.NEPH.PH ---
Today's Communication / Plan
-
Maintain fluid restriction
Follow-up BMP
Assessment/Plan
-
Impression:
VIVIAN
Newly diagnosed metastatic prostate cancer
Hyponatremia
Acute respiratory failure with bilateral pleural effusions/pulmonary nodules
History of COPD
Anemia
Hypoalbuminemia
Plan:
VIVIAN:
-Likely due to to prerenal stimulus following diuresis as patient's creatinine has risen over the course of the admission
-CT scan of kidneys revealed no abnormalities no hydronephrosis
-Creatinine down to 1.2
-Urine protein to creatinine ratio is 300 mg
-UA 2+ blood trace
-Fractional excretion of sodium was less than 1% consistent with prerenal stimulus
-Hold diuretics, hypoalbuminemia likely at least partially responsible for the patient's pleural effusions and edema,weight starting to climb, if they increase substantially we can add back low-dose oral Lasix
Hyponatremia
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
-Tightened fluid restriction and sodium now stable at 130
-I will utilize Samsca or lasix if hyponatremia exacerbates
-
-
Date of Service: January 23, 2024
CC / HPI / ROS
-
Chief Complaint:
Acute kidney injury
Hyponatremia
History of Present Illness:
Creatinine down to 1.2
Hemodynamically more stable
Sodium stable at 130
Review of Systems:
Nonoliguric
No shortness of breath
Remains edematous
Labs
-
Labs:
WBC 5.4 10^3/uL (4.8-10.8) 01/23/24 05:42
RBC 2.48 10^6/uL (4.70-6.10) L 01/23/24 05:42
Hgb 7.2 g/dL (13.0-18.0) L 01/23/24 05:42
Hct 22.4 % (39.0-52.0) L 01/23/24 05:42
Plt Count 154 10^3/uL (130-400) 01/23/24 05:42
Sodium 130 mmol/L (135-145) L 01/23/24 05:42
Potassium 4.7 mmol/L (3.5-5.1) 01/23/24 05:42
Chloride 100 mmol/L (98-107) 01/23/24 05:42
Carbon Dioxide 23 mmol/L (22-30) 01/23/24 05:42
BUN 40 mg/dl (9-20) H 01/23/24 05:42
Creatinine 1.2 mg/dL (0.7-1.3) 01/23/24 05:42
eGFR > 60.00 01/23/24 05:42
Glucose 84 mg/dl (70-99) 01/23/24 05:42
Calcium 7.4 mg/dl (8.4-10.2) L 01/23/24 05:42
Phosphorus 4.5 mg/dl (2.5-4.5) 01/23/24 05:42
Umn-U-Zivqsrvdmce Pept 649 pg/ml 01/20/24 18:09
Albumin 2.4 g/dl (3.5-5.0) L 01/21/24 05:59
Physical Exam
-
Vital Signs:
Vital Signs
Temp Pulse Resp BP Pulse Ox
97.4 F 97 16 109/51 95
01/23/24 11:45 01/23/24 11:45 01/23/24 11:45 01/23/24 11:45 01/23/24 11:45
Cardiovascular:: Regular rate and rhythm
Respiratory:: Bilateral: Coarse
Lung Excursion:: Normal
Abdomen:: Nontender and Soft
Bowel Sounds:: Normal
Extremity Edema:: +2: Bilateral:
Angel Catheter: No
[2024-01-23] MEDS: LOVENOX 40 MG SC (17:53)
[2024-01-24] VITALS (9 sets, daily range): BP systolic 106–128; BP diastolic 50–59; BMI 26.6
[2024-01-24 06:22] LABS: Blood Urea Nitrogen 35 mg/dl (9-20); Calcium 7.4 mg/dl (8.4-10.2); Carbon Dioxide 22 mmol/L (22-30); Chloride 101 mmol/L (98-107); Estimated Creatinine Clearance 56 ml/min; Glucose 122 mg/dl (70-99); Magnesium 2.2 mg/dl (1.6-2.3); Phosphorus 4.3 mg/dl (2.5-4.5); Potassium 4.4 mmol/L (3.5-5.1); Sodium 131 mmol/L (135-145); eGFR > 60.00
[2024-01-24 06:28] LABS: Hematocrit 20.7 % (39.0-52.0); Hemoglobin 6.8 g/dL (13.0-18.0); Mean Corp Hgb Conc. 32.9 g/dL (33.0-37.0); Mean Corpuscular Hgb 30.4 pg (27.0-31.0); Mean Corpuscular Volume 92.4 fL (80.0-94.0); Mean Platelet Volume 9.3 fL (7.4-10.4); Platelet Count 148 10^3/uL (130-400); Red Blood Cell Count 2.24 10^6/uL (4.70-6.10); Red Cell Dist. Width 20.7 % (11.5-14.5); White Blood Cell Count 4.5 10^3/uL (4.8-10.8)
--- NOTE | 2024-01-24 06:37 | PTCARENOTE ---
EM Becerril made aware of critical hbg/hct results this AM. VSS overnight, no active signs of bleeding overnight
[2024-01-24 07:13] LABS: IgA 50 mg/dL (68-408); IgG 500 mg/dL (768-1632); IgM 363 mg/dL (35-263)
[2024-01-24] MEDS: DUONEB 3 ML INH ×4 (07:39→19:57)
[2024-01-24] MEDS: CASODEX 50 MG PO (08:17)
[2024-01-24] MEDS: OSCAL CAL 500 500 MG PO ×2 (08:18→20:09)
[2024-01-24] MEDS: LIDOCAINE 4% PATCH 1 PATCH TOPICAL ×2 (08:18→08:19)
[2024-01-24] MEDS: PEPCID 20 MG PO (08:18)
--- NOTE | 2024-01-24 11:40 | CM ---
Patient seen at bedside.
Patient hgb 6.8 - transfusing 2 units today per nursing
Spoke with daughter - SNF upon discharge - [facility].
PLAN: SNF, pending bed availability
--- NOTE | 2024-01-24 11:48 | W.PN.NEPH.PH ---
Today's Communication / Plan
-
lasix post PRBC
Assessment/Plan
-
Impression:
VIVIAN
Newly diagnosed metastatic prostate cancer
Hyponatremia
Acute respiratory failure with bilateral pleural effusions/pulmonary nodules
History of COPD
Anemia
Hypoalbuminemia
Plan:
VIVIAN:
-Likely due to to prerenal stimulus following diuresis as patient's creatinine has risen over the course of the admission
-CT scan of kidneys revealed no abnormalities no hydronephrosis
-Creatinine stable at 1.2
-Urine protein to creatinine ratio is 300 mg
-UA 2+ blood trace
-Fractional excretion of sodium was less than 1% consistent with prerenal stimulus
-Hold diuretics, hypoalbuminemia likely at least partially responsible for the patient's pleural effusions and edema,weight starting to climb, if they increase substantially we can add back low-dose oral Lasix
Hyponatremia
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
-sodium stable at 131
-I will utilize Samsca or lasix if hyponatremia exacerbates
anemia-PRBC today-lasix 20mg IV x1
-
-
Date of Service: January 24, 2024
CC / HPI / ROS
-
Chief Complaint:
Acute kidney injury
Hyponatremia
History of Present Illness:
Creatinine down stable at 1.2
Hemodynamically more stable
Sodium stable at 131
hb low 6.8
Review of Systems:
Nonoliguric
No shortness of breath at rest, baseline LANDAVERDE
Remains edematous
wt decreasing
no blood in stools
Labs
-
Labs:
WBC 4.5 10^3/uL (4.8-10.8) L 01/24/24 05:34
RBC 2.24 10^6/uL (4.70-6.10) L 01/24/24 05:34
Hgb 6.8 g/dL (13.0-18.0) L* 01/24/24 05:34
Hct 20.7 % (39.0-52.0) L* 01/24/24 05:34
Plt Count 148 10^3/uL (130-400) 01/24/24 05:34
Sodium 131 mmol/L (135-145) L 01/24/24 05:34
Potassium 4.4 mmol/L (3.5-5.1) 01/24/24 05:34
Chloride 101 mmol/L (98-107) 01/24/24 05:34
Carbon Dioxide 22 mmol/L (22-30) 01/24/24 05:34
BUN 35 mg/dl (9-20) H 01/24/24 05:34
Creatinine 1.2 mg/dL (0.7-1.3) 01/24/24 05:34
eGFR > 60.00 01/24/24 05:34
Glucose 122 mg/dl (70-99) H 01/24/24 05:34
Calcium 7.4 mg/dl (8.4-10.2) L 01/24/24 05:34
Phosphorus 4.3 mg/dl (2.5-4.5) 01/24/24 05:34
Rac-F-Sasaioicaxb Pept 649 pg/ml 01/20/24 18:09
Albumin 2.4 g/dl (3.5-5.0) L 01/21/24 05:59
Physical Exam
-
Vital Signs:
Vital Signs
Temp Pulse Resp BP Pulse Ox
97.8 F 95 24 117/59 94
01/24/24 10:18 01/24/24 10:18 01/24/24 10:18 01/24/24 10:18 01/24/24 07:42
Cardiovascular:: Regular rate and rhythm
Respiratory:: Bilateral: CTA (decreased)
Lung Excursion:: Normal
Abdomen:: Nontender and Soft
Extremity Edema:: +1: Bilateral:
Angel Catheter: No
[2024-01-24] MEDS: LASIX 20 MG IV (13:13)
--- NOTE | 2024-01-24 14:21 | W.PN.ONC2 ---
Today's Communication / Plan
-
transfuse ordered by primary service
follow up FLC
monitor for bleeding
continue Casodex
OP follow up with Dr. Velasquez 02/06
Impression
Impression
suspected Met Prostate Ca with PSA > 1000
b/l pleural effusions, 2D echo LVEF 50-60%, normal diastolic function
hyponatremia
VIVIAN
anemia, iron studies c/w AOCD, no b12 or folate deficiency
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
Plan
Plan
Casodex initiated 01/18. Outpt F/U to start Orgovyx.
Bone Scan -bone mets
f/u pleural fluid cytology
transfuse Hgb <7 or as needed for sxs anemia. monitor for bleeding
check FLC
Office aware he needs F/U
Subjective/Objective
Chief Complaint
no new complaints
Subjective
denies bleeding
pain controlled with acetaminophen w codeine prn and lidoderm patch
daughter at bedside provided updates
Vital Signs:
Vital Signs
Temp Pulse Resp BP Pulse Ox
98.4 F 100 18 124/59 93
01/24/24 13:54 01/24/24 13:54 01/24/24 13:54 01/24/24 13:54 01/24/24 13:54
Lab Results:
Laboratory Data
WBC 4.5 10^3/uL (4.8-10.8) L 01/24/24 05:34
Hgb 6.8 g/dL (13.0-18.0) L* 01/24/24 05:34
Plt Count 148 10^3/uL (130-400) 01/24/24 05:34
eGFR > 60.00 01/24/24 05:34
Physical Exam
General: No Apparent Distress and Appears Chronically Ill
HEENT: Moist Mucous Membranes; Negative Jaundice
Cardiology: S1, S2 ,tachycardia
Pulmonary: Clear, diminished b/l bases
GI: Soft
Extremities: Pulses Present and B/L LE pitting edema R>L
Neurology: Non Focal
Skin: Warm
Review of Systems
Review of Systems
ROS notable for subjective, otherwise negative
[2024-01-24] MEDS: TYLENOL #3 1 TABLET PO ×2 (15:02→21:48)
[2024-01-24] MEDS: LOVENOX 40 MG SC (17:40)
--- NOTE | 2024-01-24 18:29 | W.PN.HOSP.TC ---
Addendum entered and electronically signed by Virginie Melo MD 01/24/24 20:56:
I saw and evaluated the patient independently. I reviewed the resident�s note and agree with findings and plan as documented by Dr. Rodríguez.
GENERAL: well developed, well nourished, male in no apparent distress
HEENT: NC/AT
HEART: regular rate and rhythm, +S1, +S2
LUNGS : clear to auscultation bilaterally
ABDOM: soft, nontender, nondistended, + bowel sounds
EXT: no cyanosis, clubbing, or edema
NEUROLOGIC: grossly intact
Bilateral Pleural Effusion--s/p thoracentesis bilaterally (1400mls each side)--path pending although presumed due to malignancy--no signs of infection
metastatic prostate cancer--apprec heme--on casodex--to be switched to Orgovyx outpatient.
VIVIAN with Hyponatremia --131 today- Likely due to SIADH in the setting of metastatic disease--apprec renal
Anemia of Chronic Disease --suspect due to malignancy--no evidence of blood loss--HGB dropped below 7--transfuse 2 units pRBC with lasix in between
Elevated Alk-Phos- Likely from Bone Mets; follow up serum electrophoresis; oncology following.
DVT Proph- Lovenox Sub Q
code status -- full code
d/c planning--wants SNF
Original Note:
Today's Communication/Plan
-
Pt Hb 6.8; 2 units of PRBCs today; continue to monitor CBC, CMP. Plan for discharge to SNF tomorrow if CBC normalizes.
Assessment / Plan
Assessment / Plan
1. Bilateral Pleural Effusion
- symptoms improved both clinically and subjectively
- likely malignant metastases
- pleural fluid did not show evidence of bacterial or fungal growth on culture
- Follow up pleural fluid cytology
- Oncology following; on casodex in hospital; to be switched to Orgovyx outpatient.
- Plan for discharge tomorrow.
2. VIVIAN
- Hyponatermia is improving, 131 today; continue to monitor.
- Likely due to SIADH in the setting of metastatic disease.
- BUN/Creat improving 35/1.2
- Pt seen by nephrology
3. Anemia of Chronic Disease
- Hb 6.8 today, down from yesterday.
- 2 Units of PRBCs given.
- Continue to monitor CBC.
4. Elevated Alk-Phos
- Likely from Bone Mets; follow up serum electrophoresis; oncology following.
5. DVT PPx
- Lovenox Sub Q
Anticipated Discharge: Within 24 hours
Subjective/Interval History
-
Date of Service: January 24, 2024
Pt has no acute complaints today. States that he is feeling better than yesterday. Patient denies SOB, CP, dizziness, palpitations. However, his H+H is 6.8/20.7 today, down from 7.2/22.4 yesterday.
Objective Data
-
Vital Signs:
Vital Signs
Temp Pulse Resp BP Pulse Ox
97.9 F 101 18 110/50 97
01/24/24 17:01 01/24/24 17:01 01/24/24 17:01 01/24/24 17:01 01/24/24 16:54
I&O
01/23/24 01/24/24 01/25/24
06:59 06:59 06:59
Intake Total 375 / 375 980 / 980 500 / 500
Output Total 1700 / 1700
Balance 375 / 375 -720 / -720 500 / 500
Review of Systems
-
History Source: Patient
All other systems: Reviewed and negative
Constitutional: Reports No Symptoms
Respiratory: Reports No Symptoms
Cardiac: Reports No Symptoms
Physical Exam
-
General: Well Developed, No Apparent Distress and Comfortable
HEENT: Normocephalic and Atraumatic
Respiratory: Clear to Auscultation (no wheezes rales or rhonchi) and Decreased Breath Sounds
Cardiac: Regular Rhythm
GI: Soft and Nontender
Musculoskeletal: Other (1+ LE edema)
Skin: Warm and Dry
Neuro: Awake, Alert and Oriented
Psych: Calm
Data Reviewed
-
Labs: Labs Reviewed by me
[2024-01-25] MEDS: TYLENOL #3 1 TABLET PO (04:38)
[2024-01-25 06:00] VITALS: BMI 27.2
[2024-01-25 06:25] LABS: Hematocrit 27.5 % (39.0-52.0); Hemoglobin 8.9 g/dL (13.0-18.0); Mean Corp Hgb Conc. 32.4 g/dL (33.0-37.0); Mean Corpuscular Volume 86.5 fL (80.0-94.0); Platelet Count 147 10^3/uL (130-400); Red Blood Cell Count 3.18 10^6/uL (4.70-6.10); Red Cell Dist. Width 20.5 % (11.5-14.5); White Blood Cell Count 4.2 10^3/uL (4.8-10.8)
[2024-01-25 06:45] LABS: Blood Urea Nitrogen 30 mg/dl (9-20); Calcium 7.5 mg/dl (8.4-10.2); Carbon Dioxide 23 mmol/L (22-30); Chloride 100 mmol/L (98-107); Estimated Creatinine Clearance 67 ml/min; Glucose 84 mg/dl (70-99); Magnesium 2.2 mg/dl (1.6-2.3); Phosphorus 4.1 mg/dl (2.5-4.5); Potassium 4.3 mmol/L (3.5-5.1); Sodium 131 mmol/L (135-145); eGFR > 60.00
[2024-01-25 07:23] VITALS: BP 112/57
[2024-01-25] MEDS: DUONEB 3 ML INH ×3 (08:00→15:16)
[2024-01-25 08:03] LABS: Absolute Neutrophils -Man Diff 2.4 10^3/uL (1.4-6.5); Band Neutrophils 5 % (0-3); Lymphocytes 22 % (20-51); Segmented Neutrophils 53 % (42-75)
[2024-01-25 08:04] LABS: Atypical Lymphocytes 3 %; Eosinophils 3 % (0-6); Monocytes 14 % (2-9); Normal RBC Morphology Yes; Nucleated Red Blood Cells 1 (-); Platelets Checked Yes; Total Cells Counted 100
[2024-01-25] MEDS: LIDOCAINE 4% PATCH 1 PATCH TOPICAL ×2 (08:15→08:16)
[2024-01-25] MEDS: OSCAL CAL 500 500 MG PO (08:16)
[2024-01-25] MEDS: CASODEX 50 MG PO (08:16)
[2024-01-25] MEDS: PEPCID 20 MG PO (08:16)
--- NOTE | 2024-01-25 10:05 | W.PN.ONC2 ---
Addendum entered and electronically signed by Sofia Bailey MD 01/25/24 13:40:
No plans to start Orgovyx until after hospitalization and rehab stay. No plans for chemo. Continue bicalutamide daily (oral, generic).
Original Note:
Today's Communication / Plan
-
discharge planning
Impression
Impression
suspected Met Prostate Ca with PSA > 1000
b/l pleural effusions, 2D echo LVEF 50-60%, normal diastolic function
hyponatremia
VIVIAN
anemia, iron studies c/w AOCD, no b12 or folate deficiency
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
Plan
Plan
Casodex initiated 01/18. Outpt F/U to start Orgovyx.
Bone Scan -bone mets
f/u pleural fluid cytology
transfuse Hgb <7 or as needed for sxs anemia. monitor for bleeding
f/u FLC
Has office follow up
Subjective/Objective
Chief Complaint
no new complaints
Subjective
afebrile, no hypoxia or hypotension
denies bleeding
pain controlled with acetaminophen w codeine prn and lidoderm patch
Hgb 8.9g/dL s/p PRBC 01/23
Vital Signs:
Vital Signs
Temp Pulse Resp BP Pulse Ox
97.9 F 80 16 112/57 94
01/25/24 07:23 01/25/24 08:02 01/25/24 08:02 01/25/24 07:23 01/25/24 08:02
Lab Results:
Laboratory Data
WBC 4.2 10^3/uL (4.8-10.8) L 01/25/24 05:41
Hgb 8.9 g/dL (13.0-18.0) L D 01/25/24 05:41
Plt Count 147 10^3/uL (130-400) 01/25/24 05:41
eGFR > 60.00 01/25/24 05:41
Physical Exam
General: No Apparent Distress and Appears Chronically Ill
HEENT: Moist Mucous Membranes; Negative Jaundice
Cardiology: S1, S2 ,tachycardia
Pulmonary: Clear, diminished b/l bases
GI: Soft
Extremities: Pulses Present and B/L LE pitting edema R>L
Neurology: Non Focal
Skin: Warm
Review of Systems
Review of Systems
ROS notable for subjective, otherwise negative
Orders
Orders
Orders From Last 24 Hours
01/25/24 05:41
Serum Free Light Chains [Mcrae/Lambda FLC Quant] [S] IN AM
--- NOTE | 2024-01-25 13:17 | CM ---
Addendum entered by Ruth Gonzalez 01/25/24 16:31:
Per Maeve at admission patient able to come on medication generic.
Addendum entered by Ruth Gonzalez 01/25/24 15:18:
Patient for transfer via ambulance due to need for max assist due to pain from Cancer.
Addendum entered by Ruth Gonzalez 01/25/24 13:49:
CM notified that patient to go to SNF on Casodex generic. Patient does not have casodex at home per daughter. Patient daughter to reach out to [place] to see if they will cover medication. [facility] cannot accept patient while on mediation.
Original Note:
Patient seen at bedside with physician. Patient has bed available at [facility] patient first choice. CM provided IMM for patient to review and spoke with patient daughter via phone. Patient [phone]. CM will continue to follow for
discharge planning needs.
Plan; transfer to SNF.
[2024-01-25 15:01] VITALS: BP 144/76; PULSE 97; O2SAT 94
--- NOTE | 2024-01-25 15:29 | W.PN.NEPH.PH ---
Today's Communication / Plan
-
start lasix 20mg daily
Assessment/Plan
-
Impression:
VIVIAN
Newly diagnosed metastatic prostate cancer
Hyponatremia
Acute respiratory failure with bilateral pleural effusions/pulmonary nodules
History of COPD
Anemia
Hypoalbuminemia
Plan:
VIVIAN: cr improved to 1
felt to be prerenal
wt is increasing -resume lasix 20mg daily
Hyponatremia
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
-sodium stable at 131, cont FR
anemia-better s/p 2 unit PRBC , high fe sat, ALP is sig high-heme follows
will s/o, call with ?s
-
-
Date of Service: January 25, 2024
CC / HPI / ROS
-
Chief Complaint:
Acute kidney injury
Hyponatremia
History of Present Illness:
Creatinine down stable at 1
Hemodynamically more stable
Sodium stable at 131
hb btter at 8.[address] 2pRBC
Review of Systems:
Nonoliguric
No shortness of breath at rest, baseline LANDAVERDE
Remains edematous
wt is up
Labs
-
Labs:
WBC 4.2 10^3/uL (4.8-10.8) L 01/25/24 05:41
RBC 3.18 10^6/uL (4.70-6.10) L 01/25/24 05:41
Hgb 8.9 g/dL (13.0-18.0) L D 01/25/24 05:41
Hct 27.5 % (39.0-52.0) L 01/25/24 05:41
Plt Count 147 10^3/uL (130-400) 01/25/24 05:41
Sodium 131 mmol/L (135-145) L 01/25/24 05:41
Potassium 4.3 mmol/L (3.5-5.1) 01/25/24 05:41
Chloride 100 mmol/L (98-107) 01/25/24 05:41
Carbon Dioxide 23 mmol/L (22-30) 01/25/24 05:41
BUN 30 mg/dl (9-20) H 01/25/24 05:41
Creatinine 1.0 mg/dL (0.7-1.3) 01/25/24 05:41
eGFR > 60.00 01/25/24 05:41
Glucose 84 mg/dl (70-99) 01/25/24 05:41
Calcium 7.5 mg/dl (8.4-10.2) L 01/25/24 05:41
Phosphorus 4.1 mg/dl (2.5-4.5) 01/25/24 05:41
Tsx-D-Adoytjybptd Pept 649 pg/ml 01/20/24 18:09
Albumin 2.4 g/dl (3.5-5.0) L 01/21/24 05:59
Physical Exam
-
Vital Signs:
Vital Signs
Temp Pulse Resp BP Pulse Ox
97.9 F 102 18 112/57 95
01/25/24 07:23 01/25/24 15:25 01/25/24 15:25 01/25/24 07:23 01/25/24 15:25
Cardiovascular:: Regular rate and rhythm
Lung Excursion:: Normal (decreased)
Abdomen:: Nontender and Soft
Extremity Edema:: +1: Bilateral:
Angel Catheter: No
[2024-01-25] MEDS: LASIX 20 MG PO (15:50)
--- NOTE | 2024-01-25 15:56 | W.PN.HOSP.TC ---
Addendum entered and electronically signed by Virginie Melo MD 01/25/24 16:32:
I saw and evaluated the patient independently. I reviewed the resident�s note and agree with findings and plan as documented by Dr. Rodríguez.
GENERAL: well developed, well nourished, male in no apparent distress
HEENT: NC/AT
HEART: regular rate and rhythm, +S1, +S2
LUNGS : clear to auscultation bilaterally
ABDOM: soft, nontender, nondistended, + bowel sounds
EXT: no cyanosis, clubbing, or edema
NEUROLOGIC: grossly intact
Bilateral Pleural Effusion--s/p thoracentesis bilaterally (1400mls each side)--path pending although presumed due to malignancy--no signs of infection
metastatic prostate cancer--apprec heme--on casodex--to be switched to Orgovyx after follow up--for now, generic casodex ok for d/c
VIVIAN with Hyponatremia --131 today- Likely due to SIADH in the setting of metastatic disease--apprec renal
Anemia of Chronic Disease --suspect due to malignancy--no evidence of blood loss--HGB dropped below 7--transfuse 2 units pRBC with lasix in between--approp bump to HGB 8.9 after transfusions
Elevated Alk-Phos- Likely from Bone Mets; follow up serum electrophoresis; oncology following.
DVT Proph- Lovenox Sub Q
code status -- full code
d/c planning--wants SNF
ok for d/c
Original Note:
Today's Communication/Plan
-
Hb corrected to 8.9. VIVIAN improving. Pt restarted on PO Lasix. Pt condition clinically improving. Patient to be d/c to SNF today and follow up with oncology after rehab.
Assessment / Plan
Assessment / Plan
1. Bilateral Pleural Effusion
- symptoms improved both clinically and subjectively
- likely malignant metastases
- pleural fluid did not show evidence of bacterial or fungal growth on culture
- patient to be discharged today to [facility]
- Oncology following; on casodex in hospital; to be switched to Orgovyx outpatient after SNF.
- Patient switched to Bicalutamide to be taken at [facility]
2. VIVIAN
- Na 131 today.
- Likely due to SIADH in the setting of metastatic disease.
- BUN/Creat improving; 04/05.
- Pt seen by nephrology; advised restarting the patient on his PO dose of Lasix.
3. Anemia of Chronic Disease
- Hb 8.9, up from 6.8, following 2 units of PRBCs yesterday.
4. Elevated Alk-Phos
- Likely from Bone Mets; oncology following.
- SPEP pending.
5. DVT PPx
- Lovenox Sub Q
Anticipated Discharge: Today
Subjective/Interval History
-
Date of Service: January 25, 2024
Pt notes that his condition continues to improve. Pt notes his breathing is mildly improved compared to yesterday when it was markedly improved from the day before. Denies overt SOB, CP, dizziness, palpitations.
Objective Data
-
Labs:
Laboratory Results
01/25/24
05:41
WBC 4.2 L
Hgb 8.9 L D
Hct 27.5 L
Plt Count 147
Sodium 131 L
Potassium 4.3
Chloride 100
Carbon Dioxide 23
BUN 30 H
Creatinine 1.0
Glucose 84
Calcium 7.5 L
Vital Signs:
Vital Signs
Temp Pulse Resp BP Pulse Ox
97.9 F 116 18 123/79 95
01/25/24 07:23 01/25/24 15:50 01/25/24 15:25 01/25/24 15:50 01/25/24 15:25
I&O
01/24/24 01/25/24 01/26/24
06:59 06:59 06:59
Intake Total 980 / 980 2370 / 2370
Output Total 1700 / 1700 1999 / 1999
Balance -720 / -720 370 / 370
Review of Systems
-
History Source: Patient
Respiratory: Reports No Symptoms
Cardiac: Reports No Symptoms
Abdomen/GI: Reports No Symptoms
Musculoskeletal: Reports Edema
Neuro: Reports No Symptoms
Physical Exam
-
General: No Apparent Distress, Comfortable, Conversant and Other (speaking in full sentences)
HEENT: Normocephalic and Atraumatic
Respiratory: Clear to Auscultation (no wheezes, rales, rhonchi) and Decreased Breath Sounds
Cardiac: Regular Rhythm and S1/S2
Musculoskeletal: Edema, Right Lower Extrem and Edema, Left Lower Extrem
Skin: Warm and Dry
Neuro: Awake and Alert
Data Reviewed
-
Labs: Labs Reviewed by me and Discussed with Patient
[2024-01-25 16:00] VITALS: BP 123/79
[2024-01-25] MEDS: FLUAD (65 yr+) 2024-2025 FORMULA 0.5 ML IM (16:14)
--- NOTE | 2024-01-25 17:42 | W.DCSUMMARY ---
Addendum entered and electronically signed by Virginie Melo MD 01/25/24 19:18:
Read, reviewed, and agree. See same day progress note for additional details. Time spent coordinating care, DC planning, review of DC plan of care with resident, transition of care, review of records in EMR, med rec, consults, notes, d/w
consultants, nursing, family, and CM = 45 minutes.
Patient's cytology from his bilateral pleural effusion thoracentesis is still pending. Patient is stable for discharge to [facility], [place] at this time. If there are any questions regarding this dictation or his hospital stay, please not hesitate to call.
Our office number is [phone].
Original Note:
Discharge Summary
Discharge Data
Date of Admission: 01/18/24
Date of Discharge: 01/25/24
Total time spent discharging patient (in min): 45
-
Pending Results: Yes
Additional Pending Results:
SPEP (Free Chloride Light Chains Quant, Free Lambda Light Chains Quant, Free Chloride/Lambda Ratio)
Pleural Fluid Cytology
Hospital Course
Mr. Flor is a 78 year old male with a past medical history of recurrent/chronic bronchitis, hyperlipidemia, and chronic back pain who presented to the emergency department on January 16 with approximately 1 month of increasing shortness of
breath and dyspnea on exertion. The patient was in his usual state of health prior to these episodes with intermittent episodes of shortness of breath that would improve with nebulizer use. However, prior to admission, these symptoms continued to
persist despite regular treatments. In the ED, the patient was afebrile, with normal oxygen saturation and blood pressure. However, he was tachycardic, and ECG showed sinus tachycardia with a right bundle branch block. BNP was 520 and liver function
tests showed an elevated alkaline phosphatase of 882. The chest x-ray at initial presentation showed moderate bilateral pleural effusions and potential bony metastases, which prompted admission. The patient was started on nebulizer treatment,
ceftriaxone, azithromycin, and Decadron at the time.
While admitted, the patient was seen by the cardiology team, the pulmonology team, and the oncology team. An echocardiogram was performed that was largely normal, save for aortic sclerosis without stenosis. His ejection fraction was 55-60%. Thus the
patient's BNP was thought to be an equivocal result, and another reason for the patient's shortness of breath was sought. Around this time it was discovered that the patient had been previously told that he had an abnormal appearing prostate, and
that biopsy of the prostate was discussed but ultimately deferred, providing concern that the bony metastases were the product of an undiagnosed prostate cancer. The patient underwent a thoracocentesis. 1400 milliliters of fluid were drawn from each
lung, and the fluid of which was sent for cytology. Upon suspicion for malignant metastases of prostate cancer, oncology was consulted, who started the patient on Cosedex. The patient was continued on this medication for the remainder of his
hospital stay. The removal of the fluid from the lungs during thoracocentesis appeared to be therapeutic and the patient's shortness of breath improved over the course of the next few days of the admission. During this time, the patient continued to
receive physical and occupational therapy, while discharge was being prepared to a residential facility. Just prior to the anticipated day of discharge, the patient donell a hemoglobin of 6.8. The patient was kept for one more day, and given 2
units of packed red blood cells. His hemoglobin rebounded to 8.6 and the patient was discharged to [facility] nursing facility on the generic form of his Cosedex (bicalutamide) and his oral dose of Lasix. He has outpatient follow ups with
pulmonology and oncology, and oncology is planning to switch his bicalutamide to Orgovyx, once the patient is seen in the outpatient setting.
Discharge Plan
-
Patient Disposition: Intermediate/SNF
Discharge Diagnosis/Procedures: Bilateral Pleural Effusion, Metastatic Prostate Cancer, VIVIAN, Anemia of Chronic Disease, Elevated Alkaline Phosphatase
Condition: Fair
Diet: As tolerated
Activity: As tolerated
Driving Restrictions: No driving
Bathing Restrictions: None
Referrals:
Jaspreet Herrera MD [Active] - in four to six weeks (full PFTs on day of office visit)
Edwardo Vazquez, DO [Family Provider] - in less than 1 week
Additional Discharge Medication Instructions: Continue Bicalutamide at residential facility. Continue daily Lasix.
Prescriptions:
New
bicalutamide 50 mg Tablet
50 mg PO DAILY Qty: 30 0RF
furosemide 20 mg Tablet
20 mg PO DAILY Qty: 30 0RF
acetaminophen-codeine 300-30 mg Tablet
1 tab PO Q6HPRN PRN (Reason: moderate pain) Qty: 10 0RF
acetaminophen-codeine 300-30 mg Tablet
2 tab PO Q6HPRN PRN (Reason: severe pain) Qty: 10 0RF
Discharge Orders:
Discharge Patient (As Directed); Ordered 01/25/24
Ordered By: Maverick Rodríguez
Discharge Date and Time
Print Language: ALBANIAN
[2024-01-25] MEDS: LOVENOX SC (18:31)
[2024-01-26 23:26] LABS: Free Kappa Light Chains,Quant 66.89 mg/L (3.30-19.40)
== END 2024-01-25 19:32 | DRG 723 ==
LOC: 3 WEST ACU 02:12
PROVIDERS: Emergency Medicine; Internal Medicine; Nurse Practitioner Acute Care; Radiology Diagnostic Radiology; Radiology Vascular & Interventional Radiology; ADMITTING PHYSICIAN Internal Medicine; ATTENDING PHYSICIAN Internal Medicine; CONSULT PHYSICIAN Internal Medicine Hematology & Oncology; EMERGENCY PHYSICIAN Emergency Medicine; FAMILY PHYSICIAN Family Medicine; OTHER PHYSICIAN Internal Medicine Critical Care Medicine; OTHER PHYSICIAN Specialist
PROC: 0W9B3ZX Drainage of Left Pleural Cavity, Percutaneous Approach, Diagnostic (ICD-10-PCS; 2024-01-19)
PROC: 0W993ZX Drainage of Right Pleural Cavity, Percutaneous Approach, Diagnostic (ICD-10-PCS; 2024-01-20)
PROC: 30233N1 Transfusion of Nonautologous Red Blood Cells into Peripheral Vein, Percutaneous Approach (ICD-10-PCS; 2024-01-24)
DX: C61 Malignant neoplasm of prostate (principal); C79.51 Secondary malignant neoplasm of bone; J90 Pleural effusion, not elsewhere classified; E87.1 Hypo-osmolality and hyponatremia; N17.9 Acute kidney failure, unspecified; D63.8 Anemia in other chronic diseases classified elsewhere; I50.9 Heart failure, unspecified; F32.A Depression, unspecified; J44.9 Chronic obstructive pulmonary disease, unspecified; I70.0 Atherosclerosis of aorta; E88.09 Other disorders of plasma-protein metabolism, not elsewhere classified; E78.5 Hyperlipidemia, unspecified; F43.10 Post-traumatic stress disorder, unspecified; G89.29 Other chronic pain; M54.50 Low back pain, unspecified; I45.10 Unspecified right bundle-branch block; M19.031 Primary osteoarthritis, right wrist; K44.9 Diaphragmatic hernia without obstruction or gangrene; J30.2 Other seasonal allergic rhinitis; K21.9 Gastro-esophageal reflux disease without esophagitis; Z77.090 Contact with and (suspected) exposure to asbestos; R03.0 Elevated blood-pressure reading, without diagnosis of hypertension; R19.7 Diarrhea, unspecified; R42 Dizziness and giddiness; R53.81 Other malaise; R63.0 Anorexia; Z68.27 Body mass index [BMI] 27.0-27.9, adult; Z96.653 Presence of artificial knee joint, bilateral; Z87.891 Personal history of nicotine dependence; Z86.0100 Personal history of colon polyps, unspecified; Z87.11 Personal history of peptic ulcer disease; Z82.49 Family history of ischemic heart disease and other diseases of the circulatory system
CPT/HCPCS: 88305; 32555; 71045; 71046; 71275; 74177; 78306; 80048; 80053; 80061; 81003; 81015; 82150; 82248; 82306; 82570; 82607; 82728; 82746; 82784; 82945; 82977; 83521; 83540; 83550; 83615; 83735; 83880; 83930; 83935; 83986; 84100; 84155; 84156; 84157; 84165; 84300; 84443; 84478; 84484; 85014; 85018; 85025; 85027; 85045; 86334; 86850; 86900; 86901; 86920; 87015; 87070; 87086; 87102; 87116; 87205; 87811; 88112; 89051; 90662; 93005; 93306; 93970; 94640; 96365; 96375; 97110; 97116; 97162; 97167; 97530; 99285; A9503; G0008; G0103; P9016; Q9967

== ENCOUNTER → 2024-01-28 10:34 | Outpatient (REF) | payer OTHER, MEDICARE, SELFPAY ==
[2024-01-28 11:41] LABS: % Basophils 0.7 % (0-2); % Eosinophils 3.2 % (0-6); % Immature Granulocytes 3.2 % (0-0.5); % Lymphocytes 11.7 % (20.5-51.1); % Monocytes 18.2 % (1.7-9.3); Absolute Eosinophils 0.2 10^3/uL (0-0.7); Absolute Immature Granulocytes 0.2 10^3/uL (0-0.05); Absolute Lymphocytes 0.7 10^3/uL (1.2-3.4); Absolute Neutrophils 3.5 10^3/uL (1.4-6.5); Hematocrit 30.5 % (39.0-52.0); Hemoglobin 9.9 g/dL (13.0-18.0); Mean Corp Hgb Conc. 32.5 g/dL (33.0-37.0); Mean Corpuscular Hgb 28.5 pg (27.0-31.0); Mean Corpuscular Volume 87.9 fL (80.0-94.0); Mean Platelet Volume 9.5 fL (7.4-10.4); Nucleated Red Blood Cells % 0 % (-); Platelet Count 197 10^3/uL (130-400); Red Blood Cell Count 3.47 10^6/uL (4.70-6.10); Red Cell Dist. Width 19.6 % (11.5-14.5); White Blood Cell Count 5.6 10^3/uL (4.8-10.8)
[2024-01-28 11:49] LABS: ALT (SGPT) 15 U/L (0-50); AST (SGOT) 32 U/L (17-59); Albumin 2.6 g/dl (3.5-5.0); Alkaline Phosphatase 522 U/L (38-126); Blood Urea Nitrogen 41 mg/dl (9-20); Calcium 7.2 mg/dl (8.4-10.2); Carbon Dioxide 24 mmol/L (22-30); Chloride 95 mmol/L (98-107); Glucose 99 mg/dl (70-99); Potassium 5.3 mmol/L (3.5-5.1); Sodium 128 mmol/L (135-145); Total Bilirubin 0.3 mg/dl (0.2-1.3); Total Protein 4.8 g/dl (6.3-8.2); eGFR 36.11
[2024-01-28 16:29] LABS: Urine Albumin 3+ (Neg - Trace); Urine Bilirubin 1+ (Negative); Urine Character Bloody (Clear); Urine Color Red; Urine Glucose Negative (Negative); Urine Ketone Trace (Negative); Urine Leukocyte Trace (Negative); Urine Nitrite Negative (Negative); Urine Occult Blood 4+ (Negative); Urine Specific Gravity 1.015 (<1.030); Urine Urobilinogen Negative (Neg - 1+); Urine pH 6.5 (5.0-9.0)
[2024-01-28 16:52] LABS: Urine Bacteria Few (Negative); Urine Red Blood Cell >100 /HPF (0-2)
== END ==
LOC: OLABP 10:34
PROVIDERS: ATTENDING PHYSICIAN Family Medicine
DX: C61 Malignant neoplasm of prostate (principal); J18.9 Pneumonia, unspecified organism; J91.0 Malignant pleural effusion; M62.81 Muscle weakness (generalized)
CPT/HCPCS: 36415; 80053; 81003; 81015; 85025; 87077; 87086; 87147; 87186

== ENCOUNTER 2024-01-28 18:12 | Inpatient (IN) | payer MEDICARE, OTHER, SELFPAY ==
[2024-01-28 13:52] VITALS: BP 113/68
[2024-01-28 14:11] VITALS: BP 123/85
--- NOTE | 2024-01-28 14:33 | ED.GENMED ---
History of Present Illness
General
Chief Complaint: Abnormal Lab Value
Source: patient
Exam Limitations: none
Time Seen by Provider: 01/28/24 13:57
History of Present Illness
History of Present Illness:
78-year-old male recent discharge from his hospital presents today in referral from [facility]. He was here for bilateral pleural effusions that required drainage. He was found to have newly metastatic prostate cancer at that time. He was
told he had some abnormal blood work and we will send him here. He does not know the blood work that was abnormal. He states he feels okay. He denies chest pain or shortness of breath. He notes some swelling in his legs but this is improved. No
fevers. No other complaints
Past History
Past History
ED Past Medical History: COPD
ED Past Surgical History: Orthopedic (Bilateral knee replacement)
Social History
Tobacco: Former smoker (Quit 40 years ago)
Alcohol: None
Phy Exam
Physical Exam
Physical Exam:
General: Overall well-appearing nontoxic male no acute respiratory distress
HEENT: Normocephalic atraumatic
Heart: Regular rate and rhythm no murmurs
Lungs: Clear no wheeze
Abdomen is soft nontender nondistended
Extremities: No cyanosis but there is pitting edema bilateral lower extremities
Course
Orders/Labs/Results
Orders:
Orders
01/28/24 14:22
CR Chest - 2 Views Urgent
Comment:
Reason For Exam: sob
01/28/24 14:32
Complete Blood Count/With Diff Urgent
Comprehensive Metabolic Panel Urgent
NT-proBNP Urgent
01/28/24 15:14
Electrocardiogram (*1) Urgent
Reason for Study: Fatigue / Weakness
EKG- Treatment ONCE
Abnormal Lab Results
01/28/24
14:32
RBC 3.62 L 10^6/uL
(4.70-6.10)
Hgb 10.8 L g/dL
(13.0-18.0)
Hct 32.8 L %
(39.0-52.0)
MCHC 32.9 L g/dL
(33.0-37.0)
RDW 19.6 H %
(11.5-14.5)
Abs Immat Gran (auto) 0.2 H 10^3/uL
(0-0.05)
Absolute Lymphs (auto) 0.5 L 10^3/uL
(1.2-3.4)
Absolute Monos (auto) 0.9 H 10^3/uL
(0.1-0.6)
Immature Gran % 2.4 H %
(0-0.5)
Lymphocytes % 8.6 L %
(20.5-51.1)
Monocytes % 14.8 H %
(1.7-9.3)
Sodium 127 L mmol/L
(135-145)
Potassium 6.0 H mmol/L
(3.5-5.1)
Chloride 94 L mmol/L
(98-107)
BUN 45 H mg/dl
(9-20)
Creatinine 2.0 H mg/dL
(0.7-1.3)
Glucose 123 H mg/dl
(70-99)
Calcium 7.3 L mg/dl
(8.4-10.2)
Alkaline Phosphatase 542 H U/L
(38-126)
Total Protein 5.2 L g/dl
(6.3-8.2)
Albumin 2.9 L g/dl
(3.5-5.0)
01/28/24 14:32
01/28/24 14:32
Vital Signs
Initial and Last Documented VS:
Initial Vital Signs
Temp Pulse Resp BP Pulse Ox
98.0 F 99 16 113/68 98
01/28/24 13:52 01/28/24 13:52 01/28/24 13:52 01/28/24 13:52 01/28/24 13:52
Last Documented Vital Signs
Temp Pulse Resp BP Pulse Ox
98.0 F 102 20 123/85 96
01/28/24 13:52 01/28/24 14:30 01/28/24 14:30 01/28/24 14:11 01/28/24 14:15
MDM/Problems Addressed
Differential Diagnosis Includes:
Patient presented with abnormal blood work. He feels okay he was uncertain which blood work was abnormal. Will order labs and chest x-ray
*Critical Care Note
Total Time (30-74mins, 75-104mins- exclusive of procedures): Not Applicable
Update Note
Update Note:
Sodium 127 potassium 6 creatinine 2.0. Chest x-ray shows small bilateral pleural effusions but better than last chest x-ray. Vital signs are stable patient overall feels okay but will admit to hospital for metabolic abnormalities
ED Attending Note
-
Portions of this chart may have been created with voice recognition software.� Occasional wrong word or��sound alike� substitutions may have occurred due to the inherent limitations of voice recognition software.
Discharge Plan
Departure
Patient Disposition: Admit
Date of Disposition: 01/28/24
Time of Disposition: 16:56
Admit to: Telemetry
Presentation/result/management discussed w/ accepting MD/DO: Hospitalist
Discharge Problem:
VIVIAN (acute kidney injury), Acute hyperkalemia, Acute hyponatremia
Prescriptions:
No Action
bicalutamide 50 mg Tablet
50 mg PO DAILY Qty: 30 0RF
furosemide 20 mg Tablet
20 mg PO DAILY Qty: 30 0RF
acetaminophen-codeine 300-30 mg Tablet
1 tab PO Q6HPRN PRN (Reason: moderate pain) Qty: 10 0RF
acetaminophen-codeine 300-30 mg Tablet
2 tab PO Q6HPRN PRN (Reason: severe pain) Qty: 10 0RF
acetaminophen 325 mg Tablet
650 mg PO Q4HPRN PRN (Reason: mild pain/fever>100)
magnesium hydroxide [Milk of Magnesia] 400 mg/5 mL Suspension
30 ml PO DAILYPRN PRN (Reason: if no bm x 4 days)
bisacodyl [Dulcolax (bisacodyl)] 10 mg Suppository
10 mg FL DAILYPRN PRN (Reason: if mom ineffective, give on day 5 if no bm)
Fleet Enema 19-7 gram/118 mL Enema
118 ml FL DAILYPRN PRN (Reason: if dulcolax ineffective, give on day 6 of no bm)
lidocaine HCl-menthol 4-1 % Adhesive Patch,Medicated
1 patch TOPICAL HS
lidocaine HCl-menthol 4-1 % Adhesive Patch,Medicated
1 patch TOPICAL HS
naloxone [Narcan] 4 mg/actuation [place],Non-Aerosol
4 mg INTRANASAL Q3MPRN PRN (Reason: opioid overdose)
Referrals:
Edwardo Vazquez DO [Family Provider] -
Interventions
Interventions:
*Risk Screen - Suicide Last Done: 01/28/24 13:54
*General Assessment Last Done: 01/28/24 14:11
*Neglect/Abuse Screening Last Done: 01/28/24 13:54
*ED COVID-19 Vaccine History Last Done: 01/28/24 14:11
Discharge Date and Time
Print Language: EMIRATI
[2024-01-28 14:54] LABS: % Basophils 0.8 % (0-2); % Eosinophils 2.6 % (0-6); % Immature Granulocytes 2.4 % (0-0.5); % Lymphocytes 8.6 % (20.5-51.1); % Monocytes 14.8 % (1.7-9.3); % Neutrophils 70.8 % (42.2-75.2); Absolute Basophils 0.1 10^3/uL (0-0.2); Absolute Eosinophils 0.2 10^3/uL (0-0.7); Absolute Immature Granulocytes 0.2 10^3/uL (0-0.05); Absolute Lymphocytes 0.5 10^3/uL (1.2-3.4); Absolute Monocytes 0.9 10^3/uL (0.1-0.6); Absolute Neutrophils 4.4 10^3/uL (1.4-6.5); Hematocrit 32.8 % (39.0-52.0); Hemoglobin 10.8 g/dL (13.0-18.0); Mean Corp Hgb Conc. 32.9 g/dL (33.0-37.0); Mean Corpuscular Hgb 29.8 pg (27.0-31.0); Mean Corpuscular Volume 90.6 fL (80.0-94.0); Mean Platelet Volume 9.7 fL (7.4-10.4); Nucleated Red Blood Cells % 0 % (-); Platelet Count 199 10^3/uL (130-400); Red Blood Cell Count 3.62 10^6/uL (4.70-6.10); Red Cell Dist. Width 19.6 % (11.5-14.5); White Blood Cell Count 6.2 10^3/uL (4.8-10.8)
[2024-01-28 14:59] LABS: ALT (SGPT) 17 U/L (0-50); AST (SGOT) 33 U/L (17-59); Albumin 2.9 g/dl (3.5-5.0); Alkaline Phosphatase 542 U/L (38-126); Blood Urea Nitrogen 45 mg/dl (9-20); Calcium 7.3 mg/dl (8.4-10.2); Carbon Dioxide 25 mmol/L (22-30); Chloride 94 mmol/L (98-107); Glucose 123 mg/dl (70-99); Sodium 127 mmol/L (135-145); Total Bilirubin 0.4 mg/dl (0.2-1.3); Total Protein 5.2 g/dl (6.3-8.2); eGFR 33.95
[2024-01-28 15:08] LABS: NT-proBNP 1030 pg/ml
--- NOTE | 2024-01-28 16:57 | HPS.HSE ---
Addendum entered and electronically signed by Tacho Harper MD 01/28/24 17:59:
see update note for addendum
Original Note:
Family Physician
-
Family Physician: Edwardo Vazquez
Chief Complaint
-
Abnormal lab values
History of Present Illness
Patient is a 78-year-old male with past medical history significant for COPD, and metastatic prostate cancer who presented to [place] ED from [facility] rehab following abnormal lab values. Patient with recent hospitalization Jan 17, 2024 - Jan 24,
2023 with bilateral pleural effusions with drainage, VIVIAN and found to have newly metastatic prostate cancer. Patient states he feels fine today and unaware what lab values were abnormal. Patient stated that while at [facility] he had 1 day where he
had a bout of diarrhea and then became constipated, he believes this to be triggered by food that he ate. He denies fever, chills, shortness of breath, cough, chest pain, shortness of breath, or any urinary symptoms.
Medical History
Past Medical History
Past Medical History: Reports Other
Additional Past Medical History:
COPD
Metastatic Prostate cancer
Anemia
Past Surgical History: Reports Other
Additional Past Surgical History:
Bilateral knee replacements
Social History
Tobacco: Non-smoker
Alcohol: None
Drug: None
Personal: Single
Living: Alone
Employment: Retired
Family History
Family History: Not pertinent
Allergies / Home Medications
Allergies reflects when Allergies were last updated in [employer].
Home Medications with original date entered in [employer]
Allergy/Medication List:
Allergies
Allergy/AdvReac Type Severity Reaction Status Date / Time
No Known Allergies Allergy Verified 01/28/24 13:54
Home Medications
acetaminophen 300 mg-codeine 30 mg tablet 1 tab PO Q6HPRN PRN moderate pain #10 tabs 01/25/24
acetaminophen 300 mg-codeine 30 mg tablet 2 tab PO Q6HPRN PRN severe pain #10 tabs 01/25/24
bicalutamide 50 mg tablet 50 mg PO DAILY #30 tabs 01/25/24
furosemide 20 mg tablet 20 mg PO DAILY #30 tabs 01/25/24
acetaminophen 325 mg tablet 650 mg PO Q4HPRN PRN mild pain/fever>100 01/28/24
bisacodyl 10 mg rectal suppository (Dulcolax (bisacodyl)) 10 mg NV DAILYPRN PRN if mom ineffective, give on day 5 if no bm 01/28/24
lidocaine HCl 4 %-menthol 1 % topical patch 1 patch topical HS left shoulder 01/28/24
lidocaine HCl 4 %-menthol 1 % topical patch 1 patch topical HS lower back 01/28/24
magnesium hydroxide 400 mg/5 mL oral suspension (Milk of Magnesia) 30 ml PO DAILYPRN PRN if no bm x 4 days 01/28/24
naloxone 4 mg/actuation nasal spray (Narcan) 4 mg intranasal Q3MPRN PRN opioid overdose 01/28/24
sodium phosphates 19 gram-7 gram/118 mL enema (Fleet Enema) 118 ml NV DAILYPRN PRN if dulcolax ineffective, give on day 6 of no bm 01/28/24
Review of Systems
-
Constitutional: Reports Weight Gain
EENT: Reports No Symptoms
Respiratory: Reports No Symptoms
Cardiac: Reports No Symptoms
Abdomen/GI: Reports No Symptoms
: Reports No Symptoms
Musculoskeletal: Reports Edema (b/l lower extremity)
Skin: Reports No Symptoms
Neurological: Reports No Symptoms
Endocrine: Reports No Symptoms
Hematologic/Lymphatic: Reports No Symptoms
Psych: Reports No Symptoms
Physical Exam
Vital Signs
Vital Signs
Temp Pulse Resp BP Pulse Ox
98.0 F 102 20 123/85 96
01/28/24 13:52 01/28/24 14:30 01/28/24 14:30 01/28/24 14:11 01/28/24 14:15
Physical Exam
General: Well Developed, Well Nourished, No Apparent Distress, Comfortable and Conversant
HEENT: NormoCephalic, Moist mucous membranes, Atraumatic, PERRLA, [place] Conjunctivae, Nose Appears Normal and Ears Appear Normal
Respiratory: Clear and Decreased Breath Sounds
Cardiac: S1/S2, Regular Rhythm and Peripheral Edema (bilateral lower extremity edema); No Murmur, Rub or Gallop
GI: Soft, Non Tender, Non Distended and Normal Bowel Sounds; No Organomegaly
Rectal: Deferred by Provider
Genito-urinary: Deferred by me
Musculoskeletal: No Clubbing, No Cyanosis, Edema, Left Lower Extremity and Edema, Right Lower Extremity; No Edema, Left Upper Extremity or Edema, Right Upper Extremity
Skin: Warm, Dry and IV/Catheter Site; No Rash
Neuro: Awake, Alert, AO x 3 and Nonfocal/grossly intact
Hematologic/Lymphatic: No Lymphadenopathy
Psych: Calm and Intact Judgment/Insight
Laboratory Results
-
01/28/24 14:32
01/28/24 14:32
Laboratory Results
Total Bilirubin 0.4 mg/dl (0.2-1.3) 01/28/24 14:32
AST 33 U/L (17-59) 01/28/24 14:32
ALT 17 U/L (0-50) 01/28/24 14:32
Alkaline Phosphatase 542 U/L (38-126) H 01/28/24 14:32
Data Reviewed
-
Diagnostic Radiology: Report Reviewed by me (CXR: 1.Small bilateral pleural effusions. 2.Hazy opacity at each lung base, which may represent pneumonia or subsegmental atelectasis. 3.Diffuse widespread osteoblastic metastasis, unchanged)
Medical Tests (Nuc Med, Echo, EKG etc): Report Reviewed by me (EKG: NORMAL SINUS RHYTHM LEFT AXIS DEVIATION RIGHT BUNDLE BRANCH BLOCK)
Lab Data: Labs Reviewed by me (Na+ 127, K+ 6.0, BUN 45, Creat 2.0, BNP 1030)
Impression/Plan
-
IMPRESSION/PLAN:
#HFpEF
- BNP 1030
- Echo (01/18/2024): Left ventricular ejection fraction is 55-60%
- Admit to telemetry
- IV Lasix 40mg daily
#VIVIAN/hyperkalemia/hyponatremia
- BUN 45, Creat 2.0, K+ 6.0, Na+ 127
- Monitor BMP
- Lokelma
- Consult Nephrology
#Metastatic Prostate Cancer
- continue bicalutamide, acetaminophen-codeine
#Bilateral Pleural Effusion
- CXR: Small bilateral pleural effusions
- Stable since previous hospitalization
#Anemia of Chronic Disease
- Hbg 10.8 improved from 8.0 on 01/25/2024
- Monitor H/H
Full Code
DVT Prophylaxis: Lovenox Sq
--- NOTE | 2024-01-28 17:03 | W.CON.NEPH ---
Consultation
-
Date/Time Consultation Requested: 01/28/24 1655
Date/Time Consultation Performed: 01/28/24 1800
Requesting Provider: Tacho Ch
Performing Provider: Lesly Kemp
Reason for Consultation: VIVIAN, hyperkalemia
Medical History
-
Chief Complaint: Acute kidney injury, hyperkalemia
History of Present Illness:
The patient is a 78-year-old male who has a past medical history of recurrent/chronic bronchitis, hyperlipidemia, MGUS, metastatic prostate ca, chronic back pain on narcs who sent from [facility] for abnormal labs. cr at 2, k 6, sodium 127. Patient
with recent hospitalization Jan 17, 2024 - Jan 25, 2024 with bilateral pleural effusions with drainage, VIVIAN and found to have newly metastatic prostate cancer. VIVIAN felt to be prerenal and diuretics were held. Cr peak at 1.7 and improved to 1 at d/c.
He was resumed back on lasix for LE edema and repeat labs were done today for f/u which noted to be abnormal as above. He also had anemia requiring transfusion last admit. He reports LE edema increasing. NO Cp or SOB as such. May have incomplete
emptying of urine today. No n/v. No abd pain. No dizziness. reports complaint with FR. Was eating well. Patient stated that while at [facility] he had 1 day where he had a bout of diarrhea and then became constipated, he believes this to be triggered
by food that he ate
Past Medical History
Hyperlipidemia
Chronic back pain
Chronic bronchitis
COPD
Metastatic Prostate cancer
Anemia
MGUS
Past Surgical History: Other (Bilateral knee replacements)
Social History
Tobacco: Former Smoker
Alcohol: None
Drug: None
Living: Prison
Employment: Retired
Family History
no ckd
Family History: Not Pertinent
Allergies / Home Medications
Allergy/AdvReac Type Severity Reaction Status Date / Time
No Known Allergies Allergy Verified 01/28/24 13:54
�Medication �Instructions �Recorded �Confirmed �Type
acetaminophen 300 mg-codeine 30 mg 1 tab PO Q6HPRN PRN moderate pain 01/25/24 01/28/24 Rx
tablet #10 tabs
acetaminophen 300 mg-codeine 30 mg 2 tab PO Q6HPRN PRN severe pain 01/25/24 01/28/24 Rx
tablet #10 tabs
bicalutamide 50 mg tablet 50 mg PO DAILY #30 tabs 01/25/24 01/28/24 Rx
furosemide 20 mg tablet 20 mg PO DAILY #30 tabs 01/25/24 01/28/24 Rx
acetaminophen 325 mg tablet 650 mg PO Q4HPRN PRN mild 01/28/24 01/28/24 History
pain/fever>100
bisacodyl 10 mg rectal suppository 10 mg [place] DAILYPRN PRN if mom 01/28/24 01/28/24 History
(Dulcolax (bisacodyl)) ineffective, give on day 5 if no bm
lidocaine HCl 4 %-menthol 1 % 1 patch topical HS left shoulder 01/28/24 01/28/24 History
topical patch
lidocaine HCl 4 %-menthol 1 % 1 patch topical HS lower back 01/28/24 01/28/24 History
topical patch
magnesium hydroxide 400 mg/5 mL 30 ml PO DAILYPRN PRN if no bm x 4 01/28/24 01/28/24 History
oral suspension (Milk of Magnesia) days
naloxone 4 mg/actuation nasal 4 mg intranasal Q3MPRN PRN opioid 01/28/24 01/28/24 History
spray (Narcan) overdose
sodium phosphates 19 gram-7 118 ml [place] DAILYPRN PRN if dulcolax 01/28/24 01/28/24 History
gram/118 mL enema (Fleet Enema) ineffective, give on day 6 of no bm
Review of Systems
-
All complete 12 point ROS have been inquired and found negative other than state din HPI
Physical Exam
Vital Signs
Vital Signs
Temp Pulse Resp BP Pulse Ox
98.0 F 102 20 123/85 96
01/28/24 13:52 01/28/24 14:30 01/28/24 14:30 01/28/24 14:11 01/28/24 14:15
Lab Results
WBC 6.2 10^3/uL (4.8-10.8) 01/28/24 14:32
RBC 3.62 10^6/uL (4.70-6.10) L 01/28/24 14:32
Hgb 10.8 g/dL (13.0-18.0) L 01/28/24 14:32
Hct 32.8 % (39.0-52.0) L 01/28/24 14:32
Plt Count 199 10^3/uL (130-400) 01/28/24 14:32
Sodium 127 mmol/L (135-145) L 01/28/24 14:32
Potassium 6.0 mmol/L (3.5-5.1) H 01/28/24 14:32
Chloride 94 mmol/L (98-107) L 01/28/24 14:32
Carbon Dioxide 25 mmol/L (22-30) 01/28/24 14:32
BUN 45 mg/dl (9-20) H 01/28/24 14:32
Creatinine 2.0 mg/dL (0.7-1.3) H 01/28/24 14:32
eGFR 33.95 01/28/24 14:32
Glucose 123 mg/dl (70-99) H 01/28/24 14:32
Calcium 7.3 mg/dl (8.4-10.2) L 01/28/24 14:32
Lfr-U-Ompnhiqdesr Pept 1030 pg/ml 01/28/24 14:32
Albumin 2.9 g/dl (3.5-5.0) L 01/28/24 14:32
CXR:
IMPRESSION:
1. Small bilateral pleural effusions.
2. Hazy opacity at each lung base, which may represent pneumonia or subsegmental atelectasis.
3. Diffuse widespread osteoblastic metastasis, unchanged.
Physical Exam
General: Awake, Alert, Oriented, AOx3, No Distress and Nontoxic
HEENT: EOMI, Anicteric, Conjunctivae Clear and Facial Symmetry
Respiratory: Clear, Normal Excursion and Nonlabored Respirations
Cardiac: S1/S2 and Regular Rate/Rhythm
Breast: Deferred by me
Abdomen: Soft and Nontender
Musculoskeletal: No Cyanosis and Edema (3+)
Skin: No Rash
Neuro: Nonfocal/Grossly Intact
Psych: Mood/afflect pleasant, Insight/judgement good and Appropriate
Data Reviewed
-
Radiology: Report Reviewed by me and Discussed with Patient
Labs: Labs Reviewed by me and Discussed with Patient
Assessment/Plan
-
Impression:
volume overload
acute HFpEF?
VIVIAN
hyperkalemia
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
Metastatic prostate cancer
Elevated Alk Phos from bony mets
Anemia of Chronic Disease
bilateral pleural effusions/pulmonary nodules recent thoracentesis
History of COPD
Hypoalbuminemia
Plan:
VIVIAN: no clear etiology
UA with microhematuria, 3+alb, check Fena, U PCR , may need to send serologies
also follow bladder scan to r/o retention
hold lasix currently , but may need to resume soon
LE edema is worsening despite lasix
last admit CT a/p no obst, U PCR only 300mg/g, of cr, echo normal EF
edema felt to be from dependant and low alb, no DVT too
if cr cont to rise likely need RHC , noted wt is up
he is on RA,
Hyperkalemia-s/p Lokelma-recheck labs later tonight
hyponatremia-SIADH from malignancy, maintain FR 48 ounces/day
d/w pt and primary
--- NOTE | 2024-01-28 17:45 | W.PN.UPDATE ---
Update Note
Progress Note Update
I saw and examined the patient.
The FOWL BLOOD TESTER or PA's note was reviewed and I agree with the note.
Comment: 78 y/o M with hx of metastatic prostate cancer, recent admission for bilateral pleural effusions requiring thoracentesis, also VIVIAN And hyponatremia presents back from SNF for abnormal lab values (Cr 2.0, K 6.0). Patient reports noticing he
legs progressively swelling, with pain. He also reports abdominal distention, but denies any urinary retention or bleeding. No SOB or CP. No other complaints.
Exam:
GENERAL: well developed, well nourished, male in no apparent distress
HEENT: NC/AT
HEART: regular rate and rhythm, +S1, +S2
LUNGS : clear to auscultation bilaterally
ABDOM: soft, nontender, slightly distended, + bowel sounds
EXT: no cyanosis, clubbing, 3+ edema bilaterally
NEUROLOGIC: grossly intact
Assessment:
volume overload
acute HFpEF
- weight up 8kg per scale; BNP up to 1030 from 650, + edema
- CXR: Small bilateral pleural effusions. Hazy opacity at each lung base, which may represent pneumonia or subsegmental atelectasis.
- IV Lasix 40mg daily; requires intensive monitoring of I/OS, weights, Lytes
- recent Echo: Normal left ventricular chamber size. Normal left ventricular systolic function. Left ventricular ejection fraction is 55-60% by visual assessment. Normal regional wall motion. Normal left ventricular wall thickness. Normal diastolic
function. Top normal right ventricular size. Normal right ventricular systolic function. Aortic sclerosis without stenosis.
VIVIAN with acute hyperkalemia
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
- continue to monitor BMP with IV Lasix
- Give Lokelma 5mg now
- fluid restriction, 1500 cc
- Nephrology consulted
Metastatic prostate cancer
Elevated Alk Phos from bony mets
- OP Onc f/u to start Orgovyx; for now continue bicalutamide
- recent thoracentesis evaluation of cytology negative for malignant cells
- Bone scan: Heterogeneous but intense radiotracer uptake within the axial and axial skeleton consistent with extensive osteoblastic metastatic disease. Findings consistent with a 'superscan'.
- continue Tylenol #3 for pain control
Anemia of Chronic Disease
- Hb 10.8, stable
DVT ppx: SC heparin
Code: Full
[2024-01-28 18:45] VITALS: BP 130/72
[2024-01-28 18:55] LABS: Osmolality Urine 273 mOsm/kg (300-900)
[2024-01-28 19:00] LABS: Urine Sodium 24 mmol/L (30-90)
[2024-01-28 19:56] VITALS: BP 123/67
[2024-01-28 20:10] LABS: Urine Protein 1653 mg/dl (0-12)
[2024-01-28 21:34] LABS: Calcium 7.1 mg/dl (8.4-10.2); Estimated Creatinine Clearance 34 ml/min; Glucose 102 mg/dl (70-99); Potassium 5.6 mmol/L (3.5-5.1); eGFR 32.02
[2024-01-28 21:43] LABS: Blood Urea Nitrogen 46 mg/dl (9-20); Carbon Dioxide 22 mmol/L (22-30)
[2024-01-28] MEDS: LOKELMA 5 GRAM PO (21:53)
[2024-01-28] MEDS: TYLENOL #3 2 TABLET PO (21:54)
[2024-01-28] MEDS: LIDOCAINE 4% PATCH 2 PATCH TOPICAL (21:54)
[2024-01-28 21:56] LABS: Chloride 95 mmol/L (98-107); Sodium 128 mmol/L (135-145)
[2024-01-28 23:35] VITALS: BP 128/76
[2024-01-29] MEDS: HEPARIN 5000 UNITS SC ×2 (00:16→08:16)
[2024-01-29] MEDS: LOKELMA 10 GRAM PO (00:16)
[2024-01-29 03:32] VITALS: BP 131/61
[2024-01-29 04:40] LABS: Urine Sodium 20 mmol/L (30-90)
[2024-01-29 06:45] LABS: Hematocrit 26.8 % (39.0-52.0); Hemoglobin 9.4 g/dL (13.0-18.0); Mean Corp Hgb Conc. 35.1 g/dL (33.0-37.0); Mean Corpuscular Volume 85.6 fL (80.0-94.0); Platelet Count 150 10^3/uL (130-400); Red Blood Cell Count 3.13 10^6/uL (4.70-6.10); Red Cell Dist. Width 19.1 % (11.5-14.5); White Blood Cell Count 4.8 10^3/uL (4.8-10.8)
[2024-01-29 06:53] LABS: Blood Urea Nitrogen 46 mg/dl (9-20); Carbon Dioxide 19 mmol/L (22-30); Chloride 98 mmol/L (98-107); Estimated Creatinine Clearance 34 ml/min; Glucose 87 mg/dl (70-99); Sodium 129 mmol/L (135-145); eGFR 32.02
[2024-01-29 07:07] VITALS: BMI 30.1
[2024-01-29 07:30] VITALS: BP 105/47
[2024-01-29] MEDS: CASODEX 50 MG PO (08:16)
[2024-01-29] MEDS: LASIX 40 MG IV (08:17)
[2024-01-29] MEDS: FLUSH (NSS) 1 FLUSH IV (08:17)
--- NOTE | 2024-01-29 09:26 | CON.MD ---
Consultation - Medical
-
see dictated note
pt recently diagnosed with met prostate cancer
readmitted with ARF
ct scan obtained shows sig distended bladder-and bilateral hydro with ? distal ureteral stone
pt was cath'd once last night for >1 liter
no real sensation to urinate now
chronic low back pain- no colic/fevers/nausea
20 ugandan wang placed- 1.5 liters of old bloody urine drained- irrigated clear
plan
ARF most likely due to urinary retention
wang in place- start flomax- hand irrigate prn
stones seen are ? distal ureter v bladder- but due to bilateral nature- have rec OR tomorrow for cysto/retrogrades/ureteroscopy
risks, benefits, alternatives and disabilities reviewed- pt agrees
hold lovenox
npo after midnight
continue casodex- pt has oncology appointment as outpt
[2024-01-29] MEDS: HYDROCORTISONE 1% CREAM 1 APPLIC TOPICAL ×2 (10:29→20:16)
[2024-01-29] MEDS: TYLENOL #3 1 TABLET PO ×2 (10:35→17:38)
[2024-01-29 11:13] VITALS: BMI 30.1
[2024-01-29 11:46] VITALS: BP 95/48
--- NOTE | 2024-01-29 13:17 | W.PN.HOSP.TC ---
Today's Communication/Plan
-
see outlined plan
Assessment / Plan
Assessment / Plan
Assessment:
VIVIAN with LE edema
Hypoalbuminemia
- weight up 8kg per scale; BNP up to 1030 from 650, + edema
- CXR: Small bilateral pleural effusions. Hazy opacity at each lung base, which may represent pneumonia or subsegmental atelectasis.
- Nephrology following, FeNA <1, IV Lasix today, monitor BMP tomorrow for further dosing
- CT with sig distended bladder-and bilateral hydro with ? bilateral stones
- Urology consulting; Angel placed and NPO p MN for cysto/retrogrades/ureteroscopy
- recent Echo: Normal left ventricular chamber size. Normal left ventricular systolic function. Left ventricular ejection fraction is 55-60% by visual assessment. Normal regional wall motion. Normal left ventricular wall thickness. Normal diastolic
function. Top normal right ventricular size. Normal right ventricular systolic function. Aortic sclerosis without stenosis.
VIVIAN with acute hyperkalemia
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
- continue to monitor BMP with IV Lasix
- s/p Lokelma with improvement in K levels
- fluid restriction, 1500 cc
- Nephrology following
Metastatic prostate cancer
Elevated Alk Phos from bony mets
- OP Onc f/u to start Orgovyx; for now continue bicalutamide
- recent thoracentesis evaluation of cytology negative for malignant cells
- Bone scan: Heterogeneous but intense radiotracer uptake within the axial and axial skeleton consistent with extensive osteoblastic metastatic disease. Findings consistent with a 'superscan'.
- continue Tylenol #3 for pain control
Anemia of Chronic Disease
- Hb 10.8, stable
DVT ppx: SCDs
Code: Full
Anticipated Discharge: 24 - 48 hours
Subjective/Interval History
-
Date of Service: January 29, 2024
denies any new complaints at present
Angel placed this AM for retention
Objective Data
-
Labs:
Laboratory Results
01/29/24
06:10
WBC 4.8
Hgb 9.4 L
Hct 26.8 L
Plt Count 150 D
Sodium 129 L
Potassium 5.0
Chloride 98
Carbon Dioxide 19 L
BUN 46 H
Creatinine 2.1 H
Glucose 87
Calcium 7.0 L
Vital Signs:
Vital Signs
Temp Pulse Resp BP Pulse Ox
97.9 F 91 18 95/48 96
01/29/24 11:46 01/29/24 11:46 01/29/24 11:46 01/29/24 11:46 01/29/24 11:46
I&O
01/28/24 01/29/24 01/30/24
06:59 06:59 06:59
Output Total 2725 / 2725
Balance -2725 / -2725
Physical Exam
-
General: No Apparent Distress
HEENT: Normocephalic and Atraumatic
Respiratory: Negative Wheezes
Cardiac: Regular Rhythm and S1/S2
GI: Soft and Nontender
Genito-urinary: Angel
Neuro: AO x 3
Hematologic / Lymphatic: No Lymphadenopathy
Psych: Calm
Data Reviewed
-
Total Time Spent with Patient (in minutes): 42
Labs: Labs Reviewed by me
[2024-01-29 15:16] VITALS: BP 103/55
--- NOTE | 2024-01-29 16:21 | PTCARENOTE ---
Pt AAO x3, sl forgetful at times. Pt HOPSON; refuses offers of OOB to chair activity- 'I'll let you know when'. Positions self in bed. VSS. Telemetry:NSR. On room air- pulse ox 95%, no SOB noted. Abd obese, soft, elida PO well, 1500 ml fl
restriction maintained. Pt aware of NPO past midnight 01/29. Angel patent large amts dark debra/blood-tinged urine. Pt c/o 'itching' of skin on arms; scattered reddened/scabbed areas noted; Hydrocortisone ointment applied as ordered with good
effect. Resting in bed at present. Will continue to monitor.
--- NOTE | 2024-01-29 16:26 | CM ---
Patient seen at bedside
IA complete
Dx: CHF exacerbation
Hx: met prostate ca, COPD
Patient came from [facility] following abnormal labs
Referral placed in [facility]-not a bed hold
PLOF: Independent with walker
DME: nebulizer, adrianne linda
PCP: Edwardo Vazquez
Pharmacy: [facility] - [facility]
PLAN: SNF
--- NOTE | 2024-01-29 16:33 | W.PN.NEPH.PH ---
Today's Communication / Plan
-
see plan
Assessment/Plan
-
Impression:
volume overload
acute HFpEF?
VIVIAN
hyperkalemia
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
Metastatic prostate cancer
Elevated Alk Phos from bony mets
Anemia of Chronic Disease
bilateral pleural effusions/pulmonary nodules recent thoracentesis
History of COPD
Hypoalbuminemia
Plan:
VIVIAN: likely obst etiology, bilat hydro, U retention
also with bilat ureteral stones-for OR tomorrow, appt input
UA with microhematuria, 3+alb, high UPCR-likely from above,
monitor gross hematuria in wang, holding SQ heparin
UA need to be repeated with U PCR later time, no need serologies at this time
U na low suggest prerenal/cardiorenal in nature
Hyperkalemia is better now
hyponatremia improving with FR
s/p lasix this am, if cr cont to improve ok to continue
edema felt to be from dependant and low alb, w/u neg last admit
if cr cont to rise likely need RHC
d/w pt and primary
-
-
Date of Service: January 29, 2024
CC / HPI / ROS
-
Chief Complaint:
VIVIAN, hyponatremia, hyperkalemia
History of Present Illness:
cr no change at 2.1, k normal
sodium better at 129
BP stable
U retention 1.3lit s/p wang
Review of Systems:
no cp or sob
LE edema still
bloody urine in wang
Labs
-
Labs:
WBC 4.8 10^3/uL (4.8-10.8) 01/29/24 06:10
RBC 3.13 10^6/uL (4.70-6.10) L 01/29/24 06:10
Hgb 9.4 g/dL (13.0-18.0) L 01/29/24 06:10
Hct 26.8 % (39.0-52.0) L 01/29/24 06:10
Plt Count 150 10^3/uL (130-400) D 01/29/24 06:10
Sodium 129 mmol/L (135-145) L 01/29/24 06:10
Potassium 5.0 mmol/L (3.5-5.1) 01/29/24 06:10
Chloride 98 mmol/L (98-107) 01/29/24 06:10
Carbon Dioxide 19 mmol/L (22-30) L 01/29/24 06:10
BUN 46 mg/dl (9-20) H 01/29/24 06:10
Creatinine 2.1 mg/dL (0.7-1.3) H 01/29/24 06:10
eGFR 32.02 01/29/24 06:10
Glucose 87 mg/dl (70-99) 01/29/24 06:10
Calcium 7.0 mg/dl (8.4-10.2) L 01/29/24 06:10
Zfo-L-Vcpfooqqsqg Pept 1030 pg/ml 01/28/24 14:32
Albumin 2.9 g/dl (3.5-5.0) L 01/28/24 14:32
Physical Exam
-
Vital Signs:
Vital Signs
Temp Pulse Resp BP Pulse Ox
98 F 93 18 103/55 95
01/29/24 15:16 01/29/24 15:16 01/29/24 15:16 01/29/24 15:16 01/29/24 16:20
Cardiovascular:: Regular rate and rhythm
Respiratory:: Bilateral: CTA
Lung Excursion:: Normal
Abdomen:: Nontender and Soft
Extremity Edema:: +3: Bilateral:
Wang Catheter: Yes
[2024-01-29 19:46] VITALS: BP 135/76
[2024-01-29 20:00] VITALS: BMI 30.1
[2024-01-29] MEDS: LIDOCAINE 4% PATCH 2 PATCH TOPICAL (21:39)
[2024-01-29 23:22] VITALS: BP 108/56
[2024-01-30] VITALS (13 sets, daily range): BP systolic 104–128; BP diastolic 50–73; BMI 30.5
[2024-01-30 06:04] LABS: Hematocrit 25.4 % (39.0-52.0); Hemoglobin 8.4 g/dL (13.0-18.0); Mean Corp Hgb Conc. 33.1 g/dL (33.0-37.0); Mean Corpuscular Volume 87.6 fL (80.0-94.0); Mean Platelet Volume 9.3 fL (7.4-10.4); Platelet Count 169 10^3/uL (130-400); White Blood Cell Count 4.5 10^3/uL (4.8-10.8)
[2024-01-30 06:31] LABS: Blood Urea Nitrogen 42 mg/dl (9-20); Calcium 6.6 mg/dl (8.4-10.2); Carbon Dioxide 25 mmol/L (22-30); Chloride 97 mmol/L (98-107); Estimated Creatinine Clearance 41 ml/min; Glucose 90 mg/dl (70-99); Potassium 4.3 mmol/L (3.5-5.1); Sodium 131 mmol/L (135-145); eGFR 41.26
[2024-01-30] MEDS: HYDROCORTISONE 1% CREAM 1 APPLIC TOPICAL ×2 (09:20→20:00)
[2024-01-30] MEDS: LASIX 40 MG IV (09:20)
--- NOTE | 2024-01-30 09:46 | W.PN.NEPH.PH ---
Addendum entered and electronically signed by Lesly Delaney MD 01/30/24 12:55:
hb decreasing follow h/h, check fe studies
Original Note:
Today's Communication / Plan
-
for OR today
monitro rash
cont lasix , no reported sulfa allergy
Assessment/Plan
-
Impression:
volume overload
acute HFpEF?
VIVIAN
hyperkalemia
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
Metastatic prostate cancer
Elevated Alk Phos from bony mets
Anemia of Chronic Disease
bilateral pleural effusions/pulmonary nodules recent thoracentesis
History of COPD
Hypoalbuminemia
Plan:
VIVIAN: likely obst etiology, bilat hydro, U retention
cr better at 1.7 post wang
also with bilat ureteral stones-for OR today, appt input
UA with microhematuria, 3+alb, high UPCR-likely from above,
monitor gross hematuria in wang, holding SQ heparin
UA need to be repeated with U PCR later time, no need serologies at this time
U na low suggest prerenal/cardiorenal? in nature
hyponatremia improving with FR
cont lasix for edema
edema felt to be from dependant and low alb, w/u neg last admit
if cr rises likely need RHC
monitor rash, from sheets?
d/w pt
-
-
Date of Service: January 30, 2024
CC / HPI / ROS
-
Chief Complaint:
VIVIAN, hyponatremia, hyperkalemia
History of Present Illness:
cr better at 1.7, k normal
sodium better at 131
BP stable
non oliguric with wang
Review of Systems:
no cp or sob
LE edema improving
rash in LEs mainly
Labs
-
Labs:
WBC 4.5 10^3/uL (4.8-10.8) L 01/30/24 05:36
RBC 2.90 10^6/uL (4.70-6.10) L 01/30/24 05:36
Hgb 8.4 g/dL (13.0-18.0) L 01/30/24 05:36
Hct 25.4 % (39.0-52.0) L 01/30/24 05:36
Plt Count 169 10^3/uL (130-400) 01/30/24 05:36
Sodium 131 mmol/L (135-145) L 01/30/24 05:36
Potassium 4.3 mmol/L (3.5-5.1) 01/30/24 05:36
Chloride 97 mmol/L (98-107) L 01/30/24 05:36
Carbon Dioxide 25 mmol/L (22-30) 01/30/24 05:36
BUN 42 mg/dl (9-20) H 01/30/24 05:36
Creatinine 1.7 mg/dL (0.7-1.3) H 01/30/24 05:36
eGFR 41.26 01/30/24 05:36
Glucose 90 mg/dl (70-99) 01/30/24 05:36
Calcium 6.6 mg/dl (8.4-10.2) L* 01/30/24 05:36
Eri-M-Sccgoeqbnbx Pept 1030 pg/ml 01/28/24 14:32
Albumin 2.9 g/dl (3.5-5.0) L 01/28/24 14:32
Physical Exam
-
Vital Signs:
Vital Signs
Temp Pulse Resp BP Pulse Ox
97.3 F 81 11 128/53 94
01/30/24 12:23 01/30/24 12:38 01/30/24 12:38 01/30/24 12:38 01/30/24 12:38
Cardiovascular:: Regular rate and rhythm
Respiratory:: Bilateral: CTA
Lung Excursion:: Normal
Abdomen:: Nontender and Soft
Extremity Edema:: +2: Bilateral:
Wang Catheter: Yes
Other Findings::
papular rash mainly in the back of LEs
--- NOTE | 2024-01-30 10:14 | CM ---
Met with patient and daughter Anh & .
OR today - for cysto/retrogrades/ureteroscopy
Came from [facility] rehab - referral entered in [facility]
PLAN: Return to SNF
--- NOTE | 2024-01-30 10:32 | W.PN.HOSP.TC ---
Today's Communication/Plan
-
OR for cysto/retrogrades/ureteroscopy today
IV Lasix daily
Assessment / Plan
Assessment / Plan
Assessment:
VIVIAN with LE edema
Hypoalbuminemia
- CXR: Small bilateral pleural effusions. Hazy opacity at each lung base, which may represent pneumonia or subsegmental atelectasis.
- weight up 8kg per scale; BNP up to 1030 from 650, + edema
- Nephrology following, FeNa <1
- IV Lasix daily - requires intensive monitoring of I/Os, weights
- CT with sig distended bladder-and bilateral hydro with ? bilateral stones
- Urology consulting; Angel placed and cysto/retrogrades/ureteroscopy today
- recent Echo: Normal left ventricular chamber size. Normal left ventricular systolic function. Left ventricular ejection fraction is 55-60% by visual assessment. Normal regional wall motion. Normal left ventricular wall thickness. Normal diastolic
function. Top normal right ventricular size. Normal right ventricular systolic function. Aortic sclerosis without stenosis.
Acute hyperkalemia
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
- continue to monitor BMP with IV Lasix
- s/p Lokelma with improvement in K levels
- fluid restriction, 1500 cc
- Nephrology following
Metastatic prostate cancer
Elevated Alk Phos from bony mets
- OP Onc f/u to start Orgovyx; for now continue bicalutamide
- recent thoracentesis evaluation of cytology negative for malignant cells
- Bone scan: Heterogeneous but intense radiotracer uptake within the axial and axial skeleton consistent with extensive osteoblastic metastatic disease. Findings consistent with a 'superscan'.
- continue Tylenol #3 for pain control
acute blood loss anemia from hematuria, on Anemia of Chronic Disease
- Hb 8.4; monitor
- update anemia labs
DVT ppx: SCDs
Code: Full
Anticipated Discharge: > 48 hours
Subjective/Interval History
-
Date of Service: January 30, 2024
resting comfortably, no complaints
for OR today
Objective Data
-
Labs:
Laboratory Results
01/30/24
05:36
WBC 4.5 L
Hgb 8.4 L
Hct 25.4 L
Plt Count 169
Sodium 131 L
Potassium 4.3
Chloride 97 L
Carbon Dioxide 25
BUN 42 H
Creatinine 1.7 H
Glucose 90
Calcium 6.6 L*
Vital Signs:
Vital Signs
Temp Pulse Resp BP Pulse Ox
97.6 F 83 18 114/50 95
01/30/24 07:00 01/30/24 09:20 01/30/24 07:00 01/30/24 09:20 01/30/24 07:00
I&O
01/29/24 01/30/24 01/31/24
06:59 06:59 06:59
Intake Total 600 / 600
Output Total 2725 / 2725 1950 / 1950
Balance -2725 / -2725 -1350 / -1350
Physical Exam
-
General: No Apparent Distress
HEENT: Normocephalic and Atraumatic
Respiratory: Negative Wheezes
Cardiac: Regular Rhythm and S1/S2
GI: Soft
Genito-urinary: Angel
Musculoskeletal: No Edema
Neuro: AO x 3
Psych: Calm
Data Reviewed
-
Total Time Spent with Patient (in minutes): 51
Labs: Labs Reviewed by me
--- NOTE | 2024-01-30 12:19 | W.IMMPOSTOP ---
Surgical Immed Post Op Note
-
Primary Surgeon:
quintin
Assisting Surgeon:
Pre-op Diagnosis:
prostate cancer/hydro/urinary retention
Post-op Diagnosis:
prostate cancer/hydro/urinary retention/bladder stones and left ureteral stone
Procedure Performed:
cysto
cystolitholopaxy
right ureteroscopy and stent
left ureteroscopy,laser lithotripsy,stone extraction and stent
wang replacement
Anesthesia Type:
gen
Specimen / Cultures:
none
Estimated Blood Loss:
2cc
Complications:
none
Operative Findings:
pt had BPH
multiple bladder stones indicated chronic obstruction
UO's very difficult to locate- ? due to BPH and wang or less likely cancer ingrowth
right ureteroscopy performed- no tumor or stone- stent placed
left ureteroscopy- 1 large and multiple small stones- removed and stent placed
wang replaced
plan
monitor renal function
when medically stable discharge with wang/stents and flomax
prompt oncology f/u needed
i will plan staged removal of stents/then wang depending on renal function
reviewed with med team and family
[2024-01-30] MEDS: CALCIUM GLUCONATE 280 MG IV (14:03)
[2024-01-30] MEDS: CASODEX 50 MG PO (14:03)
[2024-01-30] MEDS: FLOMAX 0.4 MG PO (14:03)
[2024-01-30] MEDS: TYLENOL #3 2 TABLET PO ×2 (14:25→21:54)
--- NOTE | 2024-01-30 14:55 | PTCARENOTE ---
pt back from OR s/p Cysto. pt is AAO*3, Vss, room air. c/o arthritic pain Tylenol #3 given as per ordered. pt is on regular diet. call [facility] within the reach. family at the bedside updated. will continue plan of care.
[2024-01-30 17:39] LABS: Iron 62 ug/dl (49-181)
[2024-01-30 17:44] LABS: Percent Saturation 40 % (20-50); Total Iron Binding Capacity 152 ug/dl (261-462)
[2024-01-30 18:53] LABS: Folate 8.4 ng/ml (2.76-20); Vitamin B12 422 pg/ml (239-931)
[2024-01-30] MEDS: LIDOCAINE 4% PATCH 2 PATCH TOPICAL (21:51)
[2024-01-31] VITALS (8 sets, daily range): BP systolic 102–127; BP diastolic 53–68; PULSE 86–113; O2SAT 94–95; BMI 29.4
[2024-01-31 06:56] LABS: Ionized Calcium 0.95 mMOL/L (1.15-1.33)
--- NOTE | 2024-01-31 07:31 | W.PN.URO.CBU ---
Today's Communication / Plan
-
continue wang and stents
Assessment / Plan
-
metastatic prostate cancer
ARF
bilateral hydronephrosis
urinary retention
bladder stones
left ureteral stones
s/p cysto/stone removal/bilateral ureteral stents
plan
stable
urine debra- ok to start anticoagulation and observe
leg bag teaching
plan for discharge with wang and stents
should continue casodex and flomax
f/u with dr ribeiro as outpt for staged stent/wang removal
needs outpt oncology f/u yao
Diagnosis
-
Date of Service: January 31, 2024
-
Patient Diagnosis:
met prostate cancer
ARF
urinary retention
hydro
bladder and left ureteral stone
Post Op Day:
01/29- cysto/bladder stone evacuation/bilateral ureteroscopy (with removal of left ureteral stones), bilateral stent placement
Subjective
-
pt stable
high urine output
cr pending
Objective
-
Vital Signs
Temp Pulse Resp BP Pulse Ox
97.6 F 85 18 117/60 94
01/31/24 03:32 01/31/24 03:32 01/31/24 03:32 01/31/24 03:32 01/31/24 03:32
Intake and Output
01/30/24 01/31/24 02/01/24
06:59 06:59 06:59
Intake Total 600 / 600 1040 / 1040
Output Total 1950 / 1950 4200 / 4200
Balance -1350 / -1350 -3160 / -3160
Intake:
Oral fluids 600 / 600 940 / 940
IV fluids (Total) 100 / 100
Normoosl 100 / 100
Output:
Urine, Wang 1949 / 1949 4200 / 4200
Review of Systems
-
Constitutional: Fatigue
Respiratory: No Symptoms
Cardiac: No Symptoms
Abdomen/GI: No Symptoms
: Other (wang)
Physical Exam
-
General - no acute distress
Abdomen - soft, non-tender
Genitalia - normal- wang in place
[2024-01-31 07:44] LABS: Hemoglobin 8.8 g/dL (13.0-18.0); Mean Corp Hgb Conc. 32.6 g/dL (33.0-37.0); Mean Corpuscular Hgb 28.5 pg (27.0-31.0); Mean Corpuscular Volume 87.4 fL (80.0-94.0); Platelet Count 171 10^3/uL (130-400); Red Blood Cell Count 3.09 10^6/uL (4.70-6.10); Red Cell Dist. Width 18.8 % (11.5-14.5)
[2024-01-31 08:52] LABS: Vitamin D, 25-OH*** 45.2 ng/mL (30-80)
[2024-01-31 09:02] LABS: Blood Urea Nitrogen 43 mg/dl (9-20); Calcium 6.8 mg/dl (8.4-10.2); Carbon Dioxide 26 mmol/L (22-30); Chloride 96 mmol/L (98-107); Estimated Creatinine Clearance 45 ml/min; Glucose 118 mg/dl (70-99); Potassium 4.5 mmol/L (3.5-5.1); Sodium 129 mmol/L (135-145); eGFR 52.09
[2024-01-31] MEDS: FLOMAX 0.4 MG PO (09:22)
[2024-01-31] MEDS: CASODEX 50 MG PO (09:22)
[2024-01-31] MEDS: LASIX 40 MG IV (09:23)
[2024-01-31] MEDS: HYDROCORTISONE 1% CREAM 1 APPLIC TOPICAL ×2 (09:23→21:14)
[2024-01-31] MEDS: CALCIUM GLUCONATE 100 IV (09:23)
[2024-01-31] MEDS: TYLENOL #3 1 TABLET PO (09:28)
[2024-01-31] MEDS: VIBRAMYCIN 100 MG PO ×2 (09:29→21:15)
--- NOTE | 2024-01-31 09:54 | W.PN.HOSP.TC ---
Today's Communication/Plan
-
diuresis, monitor BMP
start doxycycline after discussion with [facility] pharmacy; awaiting final sensitivities
appreciate consultants
Assessment / Plan
Assessment / Plan
Assessment:
01/29
Procedure Performed:
cysto
cystolitholopaxy
right ureteroscopy and stent
left ureteroscopy,laser lithotripsy,stone extraction and stent
wang replacement
VIVIAN with LE edema
Heart Failure preserved EF, acute exacerbation
Hypoalbuminemia
- recent Echo: Normal left ventricular chamber size. Normal left ventricular systolic function. Left ventricular ejection fraction is 55-60% by visual assessment. Normal regional wall motion. Normal left ventricular wall thickness. Normal diastolic
function. Top normal right ventricular size. Normal right ventricular systolic function. Aortic sclerosis without stenosis.
- CXR: Small bilateral pleural effusions. Hazy opacity at each lung base, which may represent pneumonia or subsegmental atelectasis.
- weight up 8kg per scale; BNP up to 1030 from 650, + edema
- Nephrology following, FeNa <1
- IV Lasix daily - requires intensive monitoring of I/Os, weights
Acute Obstruction
- CT with sig distended bladder-and bilateral hydro with stones
-s/p wang placement, flomax started
-01/29 - s/p cysto, right ureteroscopy and stent, left ureteroscopy, laser lithotripsy, stone extraction and stent; wang replacement
- appreciate Urology
UTI
-Enterococcus and staph epidermidis growing in urine in setting of obstruction, s/p urologic procedure
-discussed with [facility] pharmacy and oral Doxycycline started (AM 01/30) - await final sensitivities for enterococcus
Acute hyperkalemia
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
- continue to monitor BMP with IV Lasix
- s/p Lokelma with improvement in K levels
- fluid restriction, 1500 cc
- Nephrology following
Metastatic prostate cancer
Elevated Alk Phos from bony mets
- OP Onc f/u to start Orgovyx; for now continue bicalutamide
- recent thoracentesis evaluation of cytology negative for malignant cells
- Bone scan: Heterogeneous but intense radiotracer uptake within the axial and axial skeleton consistent with extensive osteoblastic metastatic disease. Findings consistent with a 'superscan'.
- continue Tylenol #3 for pain control
-OP follow up with Dr. Velasquez 02/06
acute blood loss anemia from hematuria, on Anemia of Chronic Disease
- Hb 8.4; monitor
- update anemia labs
DVT ppx: SCDs
Code: Full
Anticipated Discharge: 24 - 48 hours
Subjective/Interval History
-
Date of Service: January 31, 2024
no pain
feeling well
Objective Data
-
Labs:
Laboratory Results
01/31/24
06:43
WBC 6.0
Hgb 8.8 L
Hct 27.0 L
Plt Count 171
Sodium 129 L
Potassium 4.5
Chloride 96 L
Carbon Dioxide 26
BUN 43 H
Creatinine 1.4 H
Glucose 118 H
Calcium 6.8 L*
Vital Signs:
Vital Signs
Temp Pulse Resp BP Pulse Ox
98.2 F 92 20 109/57 96
01/31/24 06:43 01/31/24 09:23 01/31/24 06:43 01/31/24 09:23 01/31/24 06:43
I&O
01/30/24 01/31/24 02/01/24
06:59 06:59 06:59
Intake Total 600 / 600 1040 / 1040
Output Total 1950 / 1950 4200 / 4200
Balance -1350 / -1350 -3160 / -3160
Review of Systems
-
History Source: Patient
All other systems: Reviewed and negative
Physical Exam
-
General: No Apparent Distress
HEENT: Normocephalic and Atraumatic
Respiratory: Negative Wheezes
Cardiac: Regular Rhythm and S1/S2
GI: Soft
Genito-urinary: Wang
Musculoskeletal: No Edema
Neuro: AO x 3
Psych: Calm
Data Reviewed
-
Diagnostic Radiology: Report Reviewed by me
Labs: Labs Reviewed by me
[2024-01-31 09:56] LABS: Albumin 2.6 g/dl (3.5-5.0)
--- NOTE | 2024-01-31 11:58 | W.PN.NEPH.PH ---
Today's Communication / Plan
-
lasix
Assessment/Plan
-
Impression:
volume overload
acute HFpEF?
VIVIAN
hyperkalemia
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
Metastatic prostate cancer
Elevated Alk Phos from bony mets
Anemia of Chronic Disease
bilateral pleural effusions/pulmonary nodules recent thoracentesis
History of COPD
Hypoalbuminemia
Plan:
continue lasix
follow BMP
check mag/pth
-
-
Date of Service: January 31, 2024
CC / HPI / ROS
-
Chief Complaint:
VIVIAN, hyponatremia, hyperkalemia
History of Present Illness:
cr better at 1.4, k normal
sodium low stable 129
BP stable
non oliguric with wang/stents bilateral
Review of Systems:
no cp or sob
LE edema improving
Labs
-
Labs:
WBC 6.0 10^3/uL (4.8-10.8) 01/31/24 06:43
RBC 3.09 10^6/uL (4.70-6.10) L 01/31/24 06:43
Hgb 8.8 g/dL (13.0-18.0) L 01/31/24 06:43
Hct 27.0 % (39.0-52.0) L 01/31/24 06:43
Plt Count 171 10^3/uL (130-400) 01/31/24 06:43
Sodium 129 mmol/L (135-145) L 01/31/24 06:43
Potassium 4.5 mmol/L (3.5-5.1) 01/31/24 06:43
Chloride 96 mmol/L (98-107) L 01/31/24 06:43
Carbon Dioxide 26 mmol/L (22-30) 01/31/24 06:43
BUN 43 mg/dl (9-20) H 01/31/24 06:43
Creatinine 1.4 mg/dL (0.7-1.3) H 01/31/24 06:43
eGFR 52.09 01/31/24 06:43
Glucose 118 mg/dl (70-99) H 01/31/24 06:43
Calcium 6.8 mg/dl (8.4-10.2) L* 01/31/24 06:43
Oew-B-Niaqngpvccu Pept 1030 pg/ml 01/28/24 14:32
Albumin 2.6 g/dl (3.5-5.0) L 01/31/24 06:43
Physical Exam
-
Vital Signs:
Vital Signs
Temp Pulse Resp BP Pulse Ox
98.2 F 92 20 109/57 96
01/31/24 06:43 01/31/24 09:23 01/31/24 06:43 01/31/24 09:23 01/31/24 06:43
Cardiovascular:: Regular rate and rhythm
Respiratory:: Bilateral: CTA
Lung Excursion:: Normal
Abdomen:: Nontender and Soft
Extremity Edema:: +1: Bilateral:
--- NOTE | 2024-01-31 12:14 | PN.CDI ---
CDI
- -
CDI:
Physician Documentation Request
Admit Date: 01/28/24 18:12
Dear Doctor Norris,
Please review the following and provide your response in the progress notes.
Clinical Indicators:
Pt admitted with VIVIAN and acute heart failure.
01/27 RN skin assessment noted stage 1 left heel pressure injury POA.
Physician documentation of the type and location of wounds is required for compliant documentation. Based on the above clinical findings and your assessment, please provide the following in your progress note:
Stage 1 left heel pressure injury POA
Left heel non-pressure injury POA
Other
Use of terms such as suspected, likely, concern for, or probable (associated with a specific diagnosis that is being evaluated, monitored, or treated as if it exists) are acceptable and can be coded in the inpatient setting, when documented at the
time of discharge.
Thank you,
Bebe Johnson RN, BSN
CDI Specialist
Available via [place] [employer]
Please use your independent medical judgment in providing your response.
*Source: National Pressure Ulcer Advisory Panel (NPUAP)
--- NOTE | 2024-01-31 13:07 | CM ---
Patient seen at bedside. Patient states that he does not want to return to SNF at [facility] but needs alternative options. CM spoke at length with daughter Anh. Patient referrals sent to [facility] and [facility]. CM will
continue to follow for discharge planning needs.
Plan; SNF
[2024-01-31 13:52] LABS: Magnesium 2.1 mg/dl (1.6-2.3)
[2024-01-31] MEDS: TYLENOL #3 2 TABLET PO (20:55)
[2024-01-31] MEDS: LIDOCAINE 4% PATCH 2 PATCH TOPICAL (21:15)
[2024-02-01 05:51] VITALS: BMI 29.1
[2024-02-01 06:46] LABS: Ionized Calcium 0.95 mMOL/L (1.15-1.33)
[2024-02-01 07:11] LABS: Albumin 2.5 g/dl (3.5-5.0); Blood Urea Nitrogen 38 mg/dl (9-20); Calcium 6.8 mg/dl (8.4-10.2); Carbon Dioxide 27 mmol/L (22-30); Chloride 97 mmol/L (98-107); Estimated Creatinine Clearance 57 ml/min; Glucose 84 mg/dl (70-99); Potassium 3.9 mmol/L (3.5-5.1); Sodium 134 mmol/L (135-145); eGFR > 60.00
[2024-02-01 07:38] VITALS: BP 100/48
[2024-02-01] MEDS: CALCIUM GLUCONATE 100 IV ×2 (08:07→09:00)
[2024-02-01] MEDS: FLOMAX 0.4 MG PO (08:12)
[2024-02-01] MEDS: HYDROCORTISONE 1% CREAM 1 APPLIC TOPICAL ×2 (08:12→19:45)
[2024-02-01] MEDS: LASIX 40 MG IV (08:12)
[2024-02-01] MEDS: VIBRAMYCIN 100 MG PO ×2 (08:12→19:46)
[2024-02-01] MEDS: CASODEX 50 MG PO (08:12)
--- NOTE | 2024-02-01 10:09 | W.PN.URO.CBU ---
Today's Communication / Plan
-
cleared for discharge urologically
Assessment / Plan
-
metastatic prostate cancer
ARF
bilateral hydronephrosis
urinary retention
bladder stones
left ureteral stones
s/p cysto/stone removal/bilateral ureteral stents
plan
stable
urine debra- ok to start anticoagulation and observe
leg bag teaching
plan for discharge with wang and stents
should continue casodex and flomax
f/u with dr ribeiro as outpt for staged stent/wang removal
needs outpt oncology f/u yao
Diagnosis
-
Date of Service: February 01, 2024
-
Patient Diagnosis:
met prostate cancer
ARF
urinary retention
hydro
bladder and left ureteral stone
Post Op Day:
01/29- cysto/bladder stone evacuation/bilateral ureteroscopy (with removal of left ureteral stones), bilateral stent placement
Subjective
-
pt feels better
urine clear/debra
cr back to normal
Objective
-
Vital Signs
Temp Pulse Resp BP Pulse Ox
98.3 F 75 20 100/48 94
02/01/24 07:38 02/01/24 07:38 02/01/24 07:38 02/01/24 07:38 02/01/24 07:38
Intake and Output
01/31/24 02/01/24 02/02/24
06:59 06:59 06:59
Intake Total 1040 / 1040 720 / 720
Output Total 4200 / 4200 2225 / 2225
Balance -3160 / -3160 -1505 / -1505
Intake:
Oral fluids 940 / 940 720 / 720
IV fluids (Total) 100 / 100
Normoosl 100 / 100
Output:
Urine, Wang 4200 / 4200 1025 / 1025
Urine, Voided 1200 / 1200
Laboratory Results
01/31/24 06:43
02/01/24 06:15
Physical Exam
-
General -no acute distress
Abdomen - soft, non-tender
Genitalia - wang in place
--- NOTE | 2024-02-01 10:15 | W.PN.HOSP.TC ---
Addendum entered and electronically signed by Priscilla Pisano MD 02/02/24 10:09:
Stage 1 left heel pressure injury POA
Original Note:
Today's Communication/Plan
-
diuresis
Doxycycline
Wang
calcium repletion
possible DC to SNF tomorrow
Assessment / Plan
Assessment / Plan
Assessment:
01/29
Procedure Performed:
cysto
cystolitholopaxy
right ureteroscopy and stent
left ureteroscopy,laser lithotripsy,stone extraction and stent
wang replacement
VIVIAN with LE edema
Heart Failure preserved EF, acute exacerbation
Hypoalbuminemia
- recent Echo: Normal left ventricular chamber size. Normal left ventricular systolic function. Left ventricular ejection fraction is 55-60% by visual assessment. Normal regional wall motion. Normal left ventricular wall thickness. Normal diastolic
function. Top normal right ventricular size. Normal right ventricular systolic function. Aortic sclerosis without stenosis.
- CXR: Small bilateral pleural effusions. Hazy opacity at each lung base, which may represent pneumonia or subsegmental atelectasis.
- IV lasix 40mg QD
- appreciate renal
- weight coming down, likely approaching euvolemic
- appreciate renal consult
- renal function improving with diuresis
Acute Obstruction
- CT with sig distended bladder-and bilateral hydro with stones
- s/p wang placement, flomax started
- 01/29 - s/p cysto, right ureteroscopy and stent, left ureteroscopy, laser lithotripsy, stone extraction and stent; wang replacement
- appreciate Urology, OK for DC with follow up
UTI
-Enterococcus and staph epidermidis growing in urine in setting of obstruction, s/p urologic procedure
-discussed with ID pharmacy and oral Doxycycline started (AM 01/30) day 2
Acute hyperkalemia
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
- continue to monitor BMP with IV Lasix
- s/p Lokelma with improvement in K levels
- fluid restriction, 1500 cc
- Nephrology following
Hypocalcemia
-repleting
-Mag OK
-F/U PTH
-appreciate renal
Metastatic prostate cancer
Elevated Alk Phos from bony mets
- OP Onc f/u to start Orgovyx; for now continue bicalutamide
- recent thoracentesis evaluation of cytology negative for malignant cells
- Bone scan: Heterogeneous but intense radiotracer uptake within the axial and axial skeleton consistent with extensive osteoblastic metastatic disease. Findings consistent with a 'superscan'.
- continue Tylenol #3 for pain control
-OP follow up with Dr. Velasquez 02/06
acute blood loss anemia from hematuria, on Anemia of Chronic Disease
- Hb 8.4; monitor
- update anemia labs
DVT ppx: SCDs - pharm ppx held for hematuria
Code: Full
Anticipated Discharge: 24 - 48 hours
Subjective/Interval History
-
Date of Service: February 01, 2024
no new complaints
feeling okay
Objective Data
-
Labs:
Laboratory Results
02/01/24
06:15
Sodium 134 L
Potassium 3.9
Chloride 97 L
Carbon Dioxide 27
BUN 38 H
Creatinine 1.1
Glucose 84
Calcium 6.8 L*
Vital Signs:
Vital Signs
Temp Pulse Resp BP Pulse Ox
98.3 F 75 20 100/48 94
02/01/24 07:38 02/01/24 07:38 02/01/24 07:38 02/01/24 07:38 02/01/24 07:38
I&O
01/31/24 02/01/24 02/02/24
06:59 06:59 06:59
Intake Total 1040 / 1040 720 / 720
Output Total 4200 / 4200 2225 / 2224
Balance -3160 / -3160 -1505 / -1505
Review of Systems
-
History Source: Patient
All other systems: Reviewed and negative
Physical Exam
-
General: No Apparent Distress
HEENT: Normocephalic and Atraumatic
Respiratory: Negative Wheezes
Cardiac: Regular Rhythm and S1/S2
GI: Soft
Genito-urinary: Wang (with clear urine )
Musculoskeletal: No Edema
Neuro: AO x 3
Psych: Calm
Data Reviewed
-
Diagnostic Radiology: Report Reviewed by me
Labs: Labs Reviewed by me
--- NOTE | 2024-02-01 12:43 | W.PN.NEPH.PH ---
Today's Communication / Plan
-
additional Ca
Assessment/Plan
-
Impression:
volume overload
acute HFpEF?
VIVIAN
hyperkalemia
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
Metastatic prostate cancer
Elevated Alk Phos from bony mets
Anemia of Chronic Disease
bilateral pleural effusions/pulmonary nodules recent thoracentesis
History of COPD
Hypoalbuminemia
Plan:
continue lasix
follow BMP
await PTH
more calcium 4gm today
-
-
Date of Service: February 01, 2024
CC / HPI / ROS
-
Chief Complaint:
VIVIAN, hyponatremia, hyperkalemia
History of Present Illness:
cr better at 1.1, k normal
sodium low stable 134
Calcium low
BP stable
non oliguric with wang/stents bilateral
Review of Systems:
no cp or sob
LE edema improving
Labs
-
Labs:
WBC 6.0 10^3/uL (4.8-10.8) 01/31/24 06:43
RBC 3.09 10^6/uL (4.70-6.10) L 01/31/24 06:43
Hgb 8.8 g/dL (13.0-18.0) L 01/31/24 06:43
Hct 27.0 % (39.0-52.0) L 01/31/24 06:43
Plt Count 171 10^3/uL (130-400) 01/31/24 06:43
Sodium 134 mmol/L (135-145) L 02/01/24 06:15
Potassium 3.9 mmol/L (3.5-5.1) 02/01/24 06:15
Chloride 97 mmol/L (98-107) L 02/01/24 06:15
Carbon Dioxide 27 mmol/L (22-30) 02/01/24 06:15
BUN 38 mg/dl (9-20) H 02/01/24 06:15
Creatinine 1.1 mg/dL (0.7-1.3) 02/01/24 06:15
eGFR > 60.00 02/01/24 06:15
Glucose 84 mg/dl (70-99) 02/01/24 06:15
Calcium 6.8 mg/dl (8.4-10.2) L* 02/01/24 06:15
Qvf-Z-Jpvjbtihvli Pept 1030 pg/ml 01/28/24 14:32
Albumin 2.5 g/dl (3.5-5.0) L 02/01/24 06:15
Physical Exam
-
Vital Signs:
Vital Signs
Temp Pulse Resp BP Pulse Ox
98.3 F 75 20 100/48 94
02/01/24 07:38 02/01/24 07:38 02/01/24 07:38 02/01/24 07:38 02/01/24 08:00
Cardiovascular:: Regular rate and rhythm
Respiratory:: Bilateral: CTA
Lung Excursion:: Normal
Abdomen:: Nontender and Soft
Bowel Sounds:: Normal
Extremity Edema:: None: Bilateral:
[2024-02-01 15:52] VITALS: BP 100/47
[2024-02-01] MEDS: TYLENOL #3 2 TABLET PO (19:49)
[2024-02-01] MEDS: MIRALAX 17 GRAMS PO (21:06)
[2024-02-01] MEDS: LIDOCAINE 4% PATCH 2 PATCH TOPICAL (21:06)
[2024-02-01 23:43] VITALS: BP 124/58
[2024-02-02 05:17] VITALS: BMI 28.9
[2024-02-02 07:03] LABS: Ionized Calcium 1.01 mMOL/L (1.15-1.33)
[2024-02-02] MEDS: FLOMAX 0.4 MG PO (07:58)
[2024-02-02] MEDS: LASIX 40 MG IV (07:59)
[2024-02-02 08:00] VITALS: BP 98/46
[2024-02-02] MEDS: VIBRAMYCIN 100 MG PO ×2 (08:00→20:26)
[2024-02-02] MEDS: CASODEX 50 MG PO (08:01)
[2024-02-02] MEDS: HYDROCORTISONE 1% CREAM 1 APPLIC TOPICAL ×2 (08:01→20:27)
[2024-02-02 09:19] LABS: Albumin 2.4 g/dl (3.5-5.0); Blood Urea Nitrogen 35 mg/dl (9-20); Calcium 6.9 mg/dl (8.4-10.2); Carbon Dioxide 27 mmol/L (22-30); Chloride 96 mmol/L (98-107); Estimated Creatinine Clearance 70 ml/min; Glucose 78 mg/dl (70-99); Potassium 3.8 mmol/L (3.5-5.1); Sodium 133 mmol/L (135-145); eGFR > 60.00
--- NOTE | 2024-02-02 10:05 | W.PN.HOSP.TC ---
Today's Communication/Plan
-
hopefully ready for DC this afternoon if able to treat constipation and nausea resolves; tolerates lunch - will follow up later
Assessment / Plan
Assessment / Plan
Assessment:
01/29
Procedure Performed:
cysto
cystolitholopaxy
right ureteroscopy and stent
left ureteroscopy,laser lithotripsy,stone extraction and stent
wang replacement
VIVIAN with LE edema
Heart Failure preserved EF, acute exacerbation
Hypoalbuminemia
- recent Echo: Normal left ventricular chamber size. Normal left ventricular systolic function. Left ventricular ejection fraction is 55-60% by visual assessment. Normal regional wall motion. Normal left ventricular wall thickness. Normal diastolic
function. Top normal right ventricular size. Normal right ventricular systolic function. Aortic sclerosis without stenosis.
- CXR: Small bilateral pleural effusions. Hazy opacity at each lung base, which may represent pneumonia or subsegmental atelectasis.
- s/p IV lasix --> transition to oral tomorrow
- appreciate renal
- renal function improving with diuresis - now back to baseline
Acute Obstruction
- CT with sig distended bladder-and bilateral hydro with stones
- s/p wang placement, flomax started
- 01/29 - s/p cysto, right ureteroscopy and stent, left ureteroscopy, laser lithotripsy, stone extraction and stent; wang replacement
- appreciate Urology, OK for DC with follow up
UTI
-Enterococcus and staph epidermidis growing in urine in setting of obstruction, s/p urologic procedure
-discussed with ID pharmacy and oral Doxycycline started (AM 01/30) day 3/7
Acute hyperkalemia
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
- appreciate renal
- hyper K resolved
- Na improved with lasix
Nausea
Constipation
-nauseated this AM after eating an orange - will give zofran and also treat constipation
Hypocalcemia
-repleting
-Mag OK
-F/U PTH
-appreciate renal
--> DC on oral calcium with cdlose follow up labs
Metastatic prostate cancer
Elevated Alk Phos from bony mets
- OP Onc f/u to start Orgovyx; for now continue bicalutamide
- recent thoracentesis evaluation of cytology negative for malignant cells
- Bone scan: Heterogeneous but intense radiotracer uptake within the axial and axial skeleton consistent with extensive osteoblastic metastatic disease. Findings consistent with a 'superscan'.
- continue Tylenol #3 for pain control
-OP follow up with Dr. Velasquez 02/06
acute blood loss anemia from hematuria, on Anemia of Chronic Disease
- Hb 8.4; monitor
- update anemia labs
DVT ppx: SCDs - pharm ppx held for hematuria
Code: Full
Anticipated Discharge: Within 24 hours
Subjective/Interval History
-
Date of Service: February 02, 2024
feeling nauseated after breakfast, no pain
also constipated
Objective Data
-
Labs:
Laboratory Results
02/02/24
06:48
Sodium 133 L
Potassium 3.8
Chloride 96 L
Carbon Dioxide 27
BUN 35 H
Creatinine 0.9
Glucose 78
Calcium 6.9 L*
Vital Signs:
Vital Signs
Temp Pulse Resp BP Pulse Ox
98.3 F 80 18 98/46 95
02/02/24 08:00 02/02/24 08:00 02/02/24 08:00 02/02/24 08:00 02/02/24 09:39
I&O
02/01/24 02/02/24 02/03/24
06:59 06:59 06:59
Intake Total 720 / 720 920 / 920
Output Total 2225 / 2225 1999 / 1999
Balance -1505 / -1505 -1080 / -1080
Review of Systems
-
History Source: Patient
All other systems: Reviewed and negative
Physical Exam
-
General: No Apparent Distress
HEENT: Normocephalic and Atraumatic
Respiratory: Negative Wheezes
Cardiac: Regular Rhythm and S1/S2
GI: Soft and Other (mild discomfort lower quadrants, no rebound or guarding )
Genito-urinary: Wang (with clear urine )
Musculoskeletal: No Edema
Neuro: AO x 3
Psych: Calm
Data Reviewed
-
Diagnostic Radiology: Report Reviewed by me
Labs: Labs Reviewed by me
[2024-02-02] MEDS: ZOFRAN 4 MG IV (10:40)
[2024-02-02] MEDS: MIRALAX 17 GRAMS PO (10:40)
--- NOTE | 2024-02-02 11:16 | PTCARENOTE ---
Addendum entered by Asia Murrieta RN 02/02/24 19:19:
Large soft BM immediately post enema with continued loose BMs. aware.
Addendum entered by Asia Murrieta RN 02/02/24 16:20:
Milk and molasses enema given with good results.
Addendum entered by Asia Murrieta RN 02/02/24 14:30:
2 cups of prune juice given and dulcolax suppository given.
Original Note:
Patient with complaints of continued constipation. Given miralax. Ordered patient prune juice. aware. Will monitor for relief.
[2024-02-02] MEDS: OSCAL CAL 500 1000 MG PO (13:24)
[2024-02-02] MEDS: DULCOLAX 10 MG RECTAL (13:24)
--- NOTE | 2024-02-02 13:32 | W.PN.NEPH.PH ---
Today's Communication / Plan
-
see plan
Assessment/Plan
-
Impression:
volume overload
acute HFpEF?
VIVIAN
hyperkalemia
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
Metastatic prostate cancer
Elevated Alk Phos from bony mets
Anemia of Chronic Disease
bilateral pleural effusions/pulmonary nodules recent thoracentesis
History of COPD
Hypoalbuminemia
Plan:
continue lasix, ok for 40mg daily
cr at baseline 0.9
likely need f/u UA and U PCR out pt
hyponatremia stable, cont FR
treat constipation
hypocalcemia-cont replace, po 1000mg BID, vit D normal , pending PTH
I devyn slightly low, replace IV
follow BMP
d/c plan
-
-
Date of Service: February 02, 2024
CC / HPI / ROS
-
Chief Complaint:
VIVIAN, hyponatremia, hyperkalemia
History of Present Illness:
cr better at 0.9, k normal
sodium low stable 133
Calcium low 6.9
BP stable
non oliguric with wang/stents bilateral
Review of Systems:
no cp or sob
LE edema improving
hard stool needed deimpaction last night
Labs
-
Labs:
WBC 6.0 10^3/uL (4.8-10.8) 01/31/24 06:43
RBC 3.09 10^6/uL (4.70-6.10) L 01/31/24 06:43
Hgb 8.8 g/dL (13.0-18.0) L 01/31/24 06:43
Hct 27.0 % (39.0-52.0) L 01/31/24 06:43
Plt Count 171 10^3/uL (130-400) 01/31/24 06:43
Sodium 133 mmol/L (135-145) L 02/02/24 06:48
Potassium 3.8 mmol/L (3.5-5.1) 02/02/24 06:48
Chloride 96 mmol/L (98-107) L 02/02/24 06:48
Carbon Dioxide 27 mmol/L (22-30) 02/02/24 06:48
BUN 35 mg/dl (9-20) H 02/02/24 06:48
Creatinine 0.9 mg/dL (0.7-1.3) 02/02/24 06:48
eGFR > 60.00 02/02/24 06:48
Glucose 78 mg/dl (70-99) 02/02/24 06:48
Calcium 6.9 mg/dl (8.4-10.2) L* 02/02/24 06:48
Lnh-R-Jbqfwgngsvn Pept 1030 pg/ml 01/28/24 14:32
Albumin 2.4 g/dl (3.5-5.0) L 02/02/24 06:48
Physical Exam
-
Vital Signs:
Vital Signs
Temp Pulse Resp BP Pulse Ox
98.3 F 80 18 98/46 95
02/02/24 08:00 02/02/24 08:00 02/02/24 08:00 02/02/24 08:00 02/02/24 09:39
Cardiovascular:: Regular rate and rhythm
Respiratory:: Bilateral: CTA
Lung Excursion:: Normal
Abdomen:: Nontender and Soft
Extremity Edema:: +2: Bilateral:
Wang Catheter: Yes
[2024-02-02] MEDS: CALCIUM GLUCONATE 130 MG IV (14:07)
[2024-02-02 15:36] VITALS: BP 102/49
[2024-02-02 15:50] VITALS: BP 102/49; PULSE 79
[2024-02-02 16:00] LABS: Intact PTH 493.2 pg/ml (13.6-85.8)
--- NOTE | 2024-02-02 16:49 | CM ---
Pt address is [address] [place] [id number] Admission to change in computer.
Spoke with [facility] she requested an update in care port and a PASSR .Which was done. Will call back if bed .
SPoke with tello Hansen [phone] for SNF preference.She [facility].
Spoke with [facility] she will check on bed availability To call tomorrow.
Pt has Medicare .
PLAN To SNF after located
[2024-02-02] MEDS: LIDOCAINE 4% PATCH 2 PATCH TOPICAL (21:09)
[2024-02-02 23:02] VITALS: BP 123/56
[2024-02-03 06:00] VITALS: BMI 28.2
[2024-02-03 07:15] VITALS: BP 112/50
[2024-02-03] MEDS: HYDROCORTISONE 1% CREAM 1 APPLIC TOPICAL ×2 (08:05→20:05)
[2024-02-03] MEDS: FLOMAX 0.4 MG PO (08:05)
[2024-02-03] MEDS: LASIX 40 MG PO (08:05)
[2024-02-03] MEDS: CASODEX 50 MG PO (08:05)
[2024-02-03] MEDS: VIBRAMYCIN 100 MG PO ×2 (08:06→20:05)
[2024-02-03] MEDS: MIRALAX PO (08:06)
[2024-02-03 08:08] LABS: Blood Urea Nitrogen 25 mg/dl (9-20); Calcium 7.4 mg/dl (8.4-10.2); Carbon Dioxide 31 mmol/L (22-30); Chloride 97 mmol/L (98-107); Estimated Creatinine Clearance 79 ml/min; Glucose 89 mg/dl (70-99); Magnesium 1.8 mg/dl (1.6-2.3); Potassium 3.6 mmol/L (3.5-5.1); Sodium 134 mmol/L (135-145); eGFR > 60.00
--- NOTE | 2024-02-03 09:53 | W.PN.HOSP.TC ---
Addendum entered and electronically signed by Priscilla Pisano MD 02/03/24 10:03:
Doxycycline Precautions
�� Take with at least 6 oz H2O
�� Take with food but no calcium containing products like milk or cheese
�� Ideally you would not take any multivitamins, calcium, magnesium or zinc containing products.
�� If you must take one of these products make sure that the pills are by at least 3 hours.
�� Sit up for at least 30 minutes after each dose to prevent heartburn.
�� Your skin will be more sensitive to the sun while you are on doxycycline - it will be very easy for you to get a sunburn.
Original Note:
Today's Communication/Plan
-
OK for DC today
Assessment / Plan
Assessment / Plan
Assessment:
01/29
Procedure Performed:
cysto
cystolitholopaxy
right ureteroscopy and stent
left ureteroscopy,laser lithotripsy,stone extraction and stent
wang replacement
VIVIAN with LE edema
Heart Failure preserved EF, acute exacerbation
Hypoalbuminemia
- recent Echo: Normal left ventricular chamber size. Normal left ventricular systolic function. Left ventricular ejection fraction is 55-60% by visual assessment. Normal regional wall motion. Normal left ventricular wall thickness. Normal diastolic
function. Top normal right ventricular size. Normal right ventricular systolic function. Aortic sclerosis without stenosis.
- CXR: Small bilateral pleural effusions. Hazy opacity at each lung base, which may represent pneumonia or subsegmental atelectasis.
- s/p IV lasix --> transitioned to oral today; dose increased to 40mg PO QD
- appreciate renal
- renal function improving with diuresis - now back to baseline
Acute Obstruction
- CT with sig distended bladder-and bilateral hydro with stones
- s/p wang placement, flomax started
- 01/29 - s/p cysto, right ureteroscopy and stent, left ureteroscopy, laser lithotripsy, stone extraction and stent; wang replacement
- appreciate Urology, OK for DC with follow up
UTI
-Enterococcus and staph epidermidis growing in urine in setting of obstruction, s/p urologic procedure
-discussed with ID pharmacy and oral Doxycycline started (AM 01/30) day 4/7
Acute hyperkalemia
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
- appreciate renal
- hyper K resolved
- Na improved with lasix
Nausea
Constipation
-resolved, now with multiple BM - make miralax PRN
Hypocalcemia
-repleting and improved this morning
-Mag OK
-F/U PTH - elevated
-appreciate renal
--> DC on oral calcium with cdlose follow up labs
Metastatic prostate cancer
Elevated Alk Phos from bony mets
- OP Onc f/u to start Orgovyx; for now continue bicalutamide
- recent thoracentesis evaluation of cytology negative for malignant cells
- Bone scan: Heterogeneous but intense radiotracer uptake within the axial and axial skeleton consistent with extensive osteoblastic metastatic disease. Findings consistent with a 'superscan'.
- continue Tylenol #3 for pain control
-OP follow up with Dr. Velasquez 02/06
acute blood loss anemia from hematuria, on Anemia of Chronic Disease
- Hb 8.4; monitor
- update anemia labs
DVT ppx: SCDs - pharm ppx held for hematuria
Code: Full
Anticipated Discharge: Today
Subjective/Interval History
-
Date of Service: February 03, 2024
legs still feel swollen but overall doing better
no chest pain or shortness of breath
Objective Data
-
Labs:
Laboratory Results
02/03/24
06:53
Sodium 134 L
Potassium 3.6
Chloride 97 L
Carbon Dioxide 31 H
BUN 25 H
Creatinine 0.8
Glucose 89
Calcium 7.4 L
Vital Signs:
Vital Signs
Temp Pulse Resp BP Pulse Ox
98 F 69 18 112/50 96
02/03/24 07:15 02/03/24 07:15 02/03/24 07:15 02/03/24 07:15 02/03/24 09:39
I&O
02/02/24 02/03/24 02/04/24
06:59 06:59 06:59
Intake Total 920 / 920 870 / 870
Output Total 1999 1850 / 185
Balance -1080 / -1080 -980 / -980
Review of Systems
-
History Source: Patient
All other systems: Reviewed and negative
Physical Exam
-
General: No Apparent Distress
HEENT: Normocephalic and Atraumatic
Respiratory: Negative Wheezes
Cardiac: Regular Rhythm and S1/S2
GI: Soft and Other (mild discomfort lower quadrants, no rebound or guarding )
Genito-urinary: Wang (with clear urine )
Musculoskeletal: Other (1-2+ b/l pitting edema improving)
Neuro: AO x 3
Psych: Calm
Data Reviewed
-
Diagnostic Radiology: Report Reviewed by me
Labs: Labs Reviewed by me
--- NOTE | 2024-02-03 10:48 | CM ---
Addendum entered by Jenny Jaimes RN 02/03/24 15:15:
IMM signed on chart.
Original Note:
As per Dr Pisano pt will be ready for discharge tomorrow.
Spoke with [facility] [phone] dgt she now said she did not want [facility] and wanted [facility].
Referral placed in care port for [facility]
Spoke with Mae[facility] Littlejohn she said she can offer a bed to him .
Dgt notified that [facility] acceptance.
IMM emailed to to dgt .
Dgt said she she will transport pt .
[facility] [phone]
fax [phone]
PLAN To [facility]
[2024-02-03] MEDS: OSCAL CAL 500 1000 MG PO (11:43)
--- NOTE | 2024-02-03 11:47 | W.PN.NEPH.PH ---
Today's Communication / Plan
-
cont lasix
follow labs
Assessment/Plan
-
Impression:
volume overload
acute HFpEF?
VIVIAN
hyperkalemia
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
Metastatic prostate cancer
Elevated Alk Phos from bony mets
Anemia of Chronic Disease
bilateral pleural effusions/pulmonary nodules recent thoracentesis
History of COPD
Hypoalbuminemia
Plan:
continue lasix, ok for 40mg IV today and then daily
cr at baseline 0.9
repeat UA and U PCR out pt -hematuria on admit sample
hyponatremia stable, cont FR
hypocalcemia-cont replace, po 1000mg daily, vit D normal , mg fine
elevated SHH-nzhqoixkfkfqyy-DYN, PTH resistance, osteoblastic metastases
given K stone, may benefit to r/o any calciuria as out pt
devyn improving
follow BMP
d/c plan
nephro f/u
-
-
Date of Service: February 03, 2024
CC / HPI / ROS
-
Chief Complaint:
VIVIAN, hyponatremia, hyperkalemia
History of Present Illness:
cr better at 0.8, k normal
sodium low stable 134
Calcium better at 7.4
BP stable
non oliguric with wang/stents bilateral
Review of Systems:
no cp or sob
LE edema improving
wt decreasing
constipation resolved
Labs
-
Labs:
WBC 6.0 10^3/uL (4.8-10.8) 01/31/24 06:43
RBC 3.09 10^6/uL (4.70-6.10) L 01/31/24 06:43
Hgb 8.8 g/dL (13.0-18.0) L 01/31/24 06:43
Hct 27.0 % (39.0-52.0) L 01/31/24 06:43
Plt Count 171 10^3/uL (130-400) 01/31/24 06:43
Sodium 134 mmol/L (135-145) L 02/03/24 06:53
Potassium 3.6 mmol/L (3.5-5.1) 02/03/24 06:53
Chloride 97 mmol/L (98-107) L 02/03/24 06:53
Carbon Dioxide 31 mmol/L (22-30) H 02/03/24 06:53
BUN 25 mg/dl (9-20) H 02/03/24 06:53
Creatinine 0.8 mg/dL (0.7-1.3) 02/03/24 06:53
eGFR > 60.00 02/03/24 06:53
Glucose 89 mg/dl (70-99) 02/03/24 06:53
Calcium 7.4 mg/dl (8.4-10.2) L 02/03/24 06:53
Vqz-P-Yfdcpsbddoo Pept 1030 pg/ml 01/28/24 14:32
Albumin 2.4 g/dl (3.5-5.0) L 02/02/24 06:48
Physical Exam
-
Vital Signs:
Vital Signs
Temp Pulse Resp BP Pulse Ox
98 F 69 18 112/50 96
02/03/24 07:15 02/03/24 07:15 02/03/24 07:15 02/03/24 07:15 02/03/24 09:39
Cardiovascular:: Regular rate and rhythm
Respiratory:: Bilateral: CTA
Lung Excursion:: Normal
Abdomen:: Nontender and Soft
Extremity Edema:: +2: Bilateral: (improving)
Wang Catheter: Yes
[2024-02-03 13:47] LABS: Urine Albumin Trace (Neg - Trace); Urine Bilirubin Negative (Negative); Urine Character Clear (Clear); Urine Color Yellow; Urine Glucose Negative (Negative); Urine Ketone Negative (Negative); Urine Leukocyte 2+ (Negative); Urine Nitrite Negative (Negative); Urine Occult Blood 4+ (Negative); Urine Urobilinogen Negative (Neg - 1+)
[2024-02-03] MEDS: LASIX 40 MG IV (14:07)
[2024-02-03 14:11] LABS: Protein/creatinine Ratio 0.7; Urine Protein 45 mg/dl
[2024-02-03 14:12] LABS: Urine Mucus Moderate
[2024-02-03 14:16] LABS: Urine Amorphous Seen
[2024-02-03 14:18] LABS: Urine Red Blood Cell >100 /HPF (0-2)
[2024-02-03 14:20] LABS: Urine White Cell 16-20 /HPF (0-5)
[2024-02-03 14:36] LABS: Urine Bacteria Few (Negative); Urine Hyaline Cast 0-2 /LPF (0-2)
[2024-02-03 15:38] VITALS: BP 113/66
[2024-02-03] MEDS: LIDOCAINE 4% PATCH 2 PATCH TOPICAL (20:06)
[2024-02-03 23:48] VITALS: BP 102/50
[2024-02-04 06:00] VITALS: BMI 28.0
[2024-02-04 07:13] LABS: Blood Urea Nitrogen 23 mg/dl (9-20); Calcium 7.2 mg/dl (8.4-10.2); Carbon Dioxide 30 mmol/L (22-30); Chloride 98 mmol/L (98-107); Estimated Creatinine Clearance 70 ml/min; Glucose 92 mg/dl (70-99); Potassium 3.4 mmol/L (3.5-5.1); Sodium 137 mmol/L (135-145); eGFR > 60.00
[2024-02-04 07:30] VITALS: BP 103/48
[2024-02-04] MEDS: LASIX 40 MG IV (07:52)
[2024-02-04] MEDS: FLOMAX 0.4 MG PO (07:53)
[2024-02-04] MEDS: VIBRAMYCIN 100 MG PO (07:53)
[2024-02-04] MEDS: MIRALAX PO (07:53)
[2024-02-04] MEDS: CASODEX 50 MG PO (07:53)
[2024-02-04] MEDS: HYDROCORTISONE 1% CREAM 1 APPLIC TOPICAL (07:53)
[2024-02-04] MEDS: FLUSH (NSS) 1 FLUSH IV (07:54)
[2024-02-04] MEDS: KCL 40 MEQ PO (09:35)
--- NOTE | 2024-02-04 09:48 | W.PN.HOSP.TC ---
Today's Communication/Plan
-
OK for DC today
Assessment / Plan
Assessment / Plan
Assessment:
01/29
Procedure Performed:
cysto
cystolitholopaxy
right ureteroscopy and stent
left ureteroscopy,laser lithotripsy,stone extraction and stent
wang replacement
VIVIAN with LE edema
Heart Failure preserved EF, acute exacerbation
Hypoalbuminemia
- recent Echo: Normal left ventricular chamber size. Normal left ventricular systolic function. Left ventricular ejection fraction is 55-60% by visual assessment. Normal regional wall motion. Normal left ventricular wall thickness. Normal diastolic
function. Top normal right ventricular size. Normal right ventricular systolic function. Aortic sclerosis without stenosis.
- CXR: Small bilateral pleural effusions. Hazy opacity at each lung base, which may represent pneumonia or subsegmental atelectasis.
- s/p IV lasix; additional dose given on 04/04; patient worried about increased swelling. LE US without DVT
- OK to transition to oral on discharge
- appreciate renal
- renal function improving with diuresis - now back to baseline
Acute Obstruction
- CT with sig distended bladder-and bilateral hydro with stones
- s/p wang placement, flomax started
- 01/29 - s/p cysto, right ureteroscopy and stent, left ureteroscopy, laser lithotripsy, stone extraction and stent; wang replacement
- appreciate Urology, OK for DC with follow up
UTI
-Enterococcus and staph epidermidis growing in urine in setting of obstruction, s/p urologic procedure
-discussed with ID pharmacy and oral Doxycycline started (AM 01/30) day 5/7
Acute hyperkalemia
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
- appreciate renal
- hyper K resolved
- Na improved with lasix
Nausea
Constipation
-resolved, now with multiple BM - make miralax PRN
Hypocalcemia
-repleting and improved this morning
-Mag OK
-F/U PTH - elevated
-appreciate renal
--> DC on oral calcium with cdlose follow up labs
Metastatic prostate cancer
Elevated Alk Phos from bony mets
- OP Onc f/u to start Orgovyx; for now continue bicalutamide
- recent thoracentesis evaluation of cytology negative for malignant cells
- Bone scan: Heterogeneous but intense radiotracer uptake within the axial and axial skeleton consistent with extensive osteoblastic metastatic disease. Findings consistent with a 'superscan'.
- continue Tylenol #3 for pain control
-OP follow up with Dr. Velasquez 02/06
acute blood loss anemia from hematuria, on Anemia of Chronic Disease
- Hb 8.4; monitor
- update anemia labs
DVT ppx: SCDs - pharm ppx held for hematuria
Code: Full
Anticipated Discharge: Today
Subjective/Interval History
-
Date of Service: February 04, 2024
legs feel better today
feels ready to leave the hospital
Objective Data
-
Labs:
Laboratory Results
02/04/24
06:35
Sodium 137
Potassium 3.4 L
Chloride 98
Carbon Dioxide 30
BUN 23 H
Creatinine 0.9
Glucose 92
Calcium 7.2 L
Vital Signs:
Vital Signs
Temp Pulse Resp BP Pulse Ox
97.8 F 72 18 118/80 97
02/04/24 07:30 02/04/24 07:52 02/04/24 07:30 02/04/24 07:52 02/04/24 08:00
I&O
02/03/24 02/04/24 02/05/24
06:59 06:59 06:59
Intake Total 870 / 870 970 / 970
Output Total 1850 / 1850 1500 / 1500
Balance -980 / -980 -530 / -530
Review of Systems
-
History Source: Patient
All other systems: Reviewed and negative
Physical Exam
-
General: No Apparent Distress
HEENT: Normocephalic and Atraumatic
Respiratory: Negative Wheezes
Cardiac: Regular Rhythm and S1/S2
GI: Soft and Other (mild discomfort lower quadrants, no rebound or guarding )
Genito-urinary: Wang (with clear urine )
Musculoskeletal: Other (b/l pitting edema improving; wearing compression stockings )
Neuro: AO x 3
Psych: Calm
Data Reviewed
-
Diagnostic Radiology: Report Reviewed by me
Labs: Labs Reviewed by me
--- NOTE | 2024-02-04 09:51 | W.DS.TRANS ---
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
-
Discharge Instructions:
Sleep Apnea Risk Low
Discharge Diagnosis/Procedures bilateral hydronephrosis and urinary retention
and left ureteral stones status post cystoscopy,
stone removal, bilateral ureteral stents on
; urinary tract infection; metastatic
prostate cancer; acute diastolic heart failure
exacerbation; acute kidney injury; hypocalcemia
with elevated parathyroid hormone
Diet Regular
Additional Diets add ensure vanilla supplement twice a day
Activity As tolerated
Additional Activity compression stockings to be worn at SNF
Driving Restrictions No driving
Bathing Restrictions None
Blood Work BMP, Calcium, Albumin, Ionized Calcium on
Wednesday02/08/24
Other Services PT,OT
Specialty Instructions Weigh Daily
Instructions: *PCP/Other Probation Counselor Heart Failure Instructions
Stand-Alone Forms:
Changes to Home Medications: Yes
Discharge Medications:
DC Medications w/original date entered in [facility]
bicalutamide 50 mg tablet 50 mg PO DAILY #30 tabs 01/25/24
acetaminophen 325 mg tablet 650 mg PO Q4HPRN PRN mild pain/fever>100 01/28/24
bisacodyl 10 mg rectal suppository (Dulcolax (bisacodyl)) 10 mg [place] DAILYPRN PRN if mom ineffective, give on day 5 if no bm 01/28/24
lidocaine HCl 4 %-menthol 1 % topical patch 1 patch topical HS left shoulder 01/28/24
lidocaine HCl 4 %-menthol 1 % topical patch 1 patch topical HS lower back 01/28/24
naloxone 4 mg/actuation nasal spray (Narcan) 4 mg intranasal Q3MPRN PRN opioid overdose 01/28/24
sodium phosphates 19 gram-7 gram/118 mL enema (Fleet Enema) 118 ml [place] DAILYPRN PRN if dulcolax ineffective, give on day 6 of no bm 01/28/24
acetaminophen 300 mg-codeine 30 mg tablet 1 tab PO Q6HPRN PRN moderate pain #10 tabs 02/03/24
acetaminophen 300 mg-codeine 30 mg tablet 2 tab PO Q6HPRN PRN severe pain #10 tabs 02/03/24
calcium carbonate 1,000 mg (2 x 500 mg calcium (1,250 mg)) PO DAILY@1200 #10 tabs 02/03/24
doxycycline hyclate 100 mg capsule 100 mg PO Q12 #7 caps 02/03/24
furosemide 40 mg tablet 40 mg PO DAILY #30 tabs 02/03/24
hydrocortisone 1 % topical cream 1 applic topical BID PRN lower extremity rash #453.6 grams 02/03/24
polyethylene glycol 3350 17 gram oral powder packet (HealthyLax) 17 g PO DAILY PRN no bowel movement in 2 days #14 ea 02/03/24
tamsulosin 0.4 mg capsule 0.4 mg PO DAILY #30 caps 02/03/24
Home Medication Changes
You have 2.5 more days of antibiotics (take next dose this evening; last dose Wednesday evening)
Doxycycline Precautions
�� Take with at least 6 oz H2O
�� Take with food but no calcium containing products like milk or cheese
�� Ideally you would not take any multivitamins, calcium, magnesium or zinc containing products.
�� If you must take one of these products make sure that the pills are by at least 3 hours.
�� Sit up for at least 30 minutes after each dose to prevent heartburn.
�� Your skin will be more sensitive to the sun while you are on doxycycline - it will be very easy for you to get a sunburn.
You may take your calcium supplementation mid-day - from morning and evening dose by at least 3 hours. When you complete your Doxycycline course, your physician may increase this dosing to twice a day based on follow up calcium levels.
Your Lasix is increased from 20 to 40mg daily.
You are started on Flomax daily.
If you have a day without a bowel movement then take Miralax.
Pending Results: No
--- NOTE | 2024-02-04 09:54 | W.DS.TRANS ---
DC Summary - [employer]
-
Discharge Instructions:
Sleep Apnea Risk Low
Discharge Diagnosis/Procedures bilateral hydronephrosis and urinary retention
and left ureteral stones status post cystoscopy,
stone removal, bilateral ureteral stents on
; urinary tract infection; metastatic
prostate cancer; acute diastolic heart failure
exacerbation; acute kidney injury; hypocalcemia
with elevated parathyroid hormone
Diet Regular
Additional Diets add ensure vanilla supplement twice a day
Activity As tolerated
Additional Activity compression stockings to be worn at SNF
Driving Restrictions No driving
Bathing Restrictions None
Blood Work BMP, Calcium, Albumin, Ionized Calcium on
Wednesday02/08/24
Other Services PT,OT
Specialty Instructions Weigh Daily
Instructions: *PCP/Other Special Weapons And Tactics Officer Heart Failure Instructions
Stand-Alone Forms:
Changes to Home Medications: Yes
Discharge Medications:
DC Medications w/original date entered in [facility]
bicalutamide 50 mg tablet 50 mg PO DAILY #30 tabs 01/25/24
acetaminophen 325 mg tablet 650 mg PO Q4HPRN PRN mild pain/fever>100 01/28/24
bisacodyl 10 mg rectal suppository (Dulcolax (bisacodyl)) 10 mg [place] DAILYPRN PRN if mom ineffective, give on day 5 if no bm 01/28/24
lidocaine HCl 4 %-menthol 1 % topical patch 1 patch topical HS left shoulder 01/28/24
lidocaine HCl 4 %-menthol 1 % topical patch 1 patch topical HS lower back 01/28/24
naloxone 4 mg/actuation nasal spray (Narcan) 4 mg intranasal Q3MPRN PRN opioid overdose 01/28/24
sodium phosphates 19 gram-7 gram/118 mL enema (Fleet Enema) 118 ml ID DAILYPRN PRN if dulcolax ineffective, give on day 6 of no bm 01/28/24
acetaminophen 300 mg-codeine 30 mg tablet 1 tab PO Q6HPRN PRN moderate pain #10 tabs 02/03/24
acetaminophen 300 mg-codeine 30 mg tablet 2 tab PO Q6HPRN PRN severe pain #10 tabs 02/03/24
calcium carbonate 1,000 mg (2 x 500 mg calcium (1,250 mg)) PO DAILY@1200 #10 tabs 02/03/24
doxycycline hyclate 100 mg capsule 100 mg PO Q12 #7 caps 02/03/24
furosemide 40 mg tablet 40 mg PO DAILY #30 tabs 02/03/24
hydrocortisone 1 % topical cream 1 applic topical BID PRN lower extremity rash #453.6 grams 02/03/24
polyethylene glycol 3350 17 gram oral powder packet (HealthyLax) 17 g PO DAILY PRN no bowel movement in 2 days #14 ea 02/03/24
tamsulosin 0.4 mg capsule 0.4 mg PO DAILY #30 caps 02/03/24
Home Medication Changes
You have 2.5 more days of antibiotics (take next dose this evening; last dose Wednesday evening)
Doxycycline Precautions
�� Take with at least 6 oz H2O
�� Take with food but no calcium containing products like milk or cheese
�� Ideally you would not take any multivitamins, calcium, magnesium or zinc containing products.
�� If you must take one of these products make sure that the pills are by at least 3 hours.
�� Sit up for at least 30 minutes after each dose to prevent heartburn.
�� Your skin will be more sensitive to the sun while you are on doxycycline - it will be very easy for you to get a sunburn.
You may take your calcium supplementation mid-day - from morning and evening dose by at least 3 hours. When you complete your Doxycycline course, your physician may increase this dosing to twice a day based on follow up calcium levels.
Your Lasix is increased from 20 to 40mg daily.
You are started on Flomax daily.
If you have a day without a bowel movement then take Miralax.
Pending Results: No
--- NOTE | 2024-02-04 09:55 | CM ---
entered order for discharge.
Spoke with [facility] [phone]. They are aware of discharge and agree with dc.
[facility] dgt and will transport pt to [facility] .
Spoke with Maeve Littlejohn she said bed ready.
[place] [facility]
[phone]
fax [phone]
PLAN To [facility]
--- NOTE | 2024-02-04 10:12 | W.PN.NEPH.PH ---
Today's Communication / Plan
-
K
Assessment/Plan
-
Impression:
volume overload
acute HFpEF?
VIVIAN
hyperkalemia
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
Metastatic prostate cancer
Elevated Alk Phos from bony mets
Anemia of Chronic Disease
bilateral pleural effusions/pulmonary nodules recent thoracentesis
History of COPD
Hypoalbuminemia
Plan:
switch to po lasix
replete K today
BMP in 1 week to follow K
for dc
-
-
Date of Service: February 04, 2024
CC / HPI / ROS
-
Chief Complaint:
VIVIAN, hyponatremia, hyperkalemia
History of Present Illness:
Cr normal
sodium better
K low 3.4
BP stable
non oliguric with wang/stents bilateral
Review of Systems:
no cp or sob
LE edema improving
wt decreasing
constipation resolved
Labs
-
Labs:
WBC 6.0 10^3/uL (4.8-10.8) 01/31/24 06:43
RBC 3.09 10^6/uL (4.70-6.10) L 01/31/24 06:43
Hgb 8.8 g/dL (13.0-18.0) L 01/31/24 06:43
Hct 27.0 % (39.0-52.0) L 01/31/24 06:43
Plt Count 171 10^3/uL (130-400) 01/31/24 06:43
Sodium 137 mmol/L (135-145) 02/04/24 06:35
Potassium 3.4 mmol/L (3.5-5.1) L 02/04/24 06:35
Chloride 98 mmol/L (98-107) 02/04/24 06:35
Carbon Dioxide 30 mmol/L (22-30) 02/04/24 06:35
BUN 23 mg/dl (9-20) H 02/04/24 06:35
Creatinine 0.9 mg/dL (0.7-1.3) 02/04/24 06:35
eGFR > 60.00 02/04/24 06:35
Glucose 92 mg/dl (70-99) 02/04/24 06:35
Calcium 7.2 mg/dl (8.4-10.2) L 02/04/24 06:35
Laz-E-Iyjdxhvlylz Pept 1030 pg/ml 01/28/24 14:32
Albumin 2.4 g/dl (3.5-5.0) L 02/02/24 06:48
Physical Exam
-
Vital Signs:
Vital Signs
Temp Pulse Resp BP Pulse Ox
97.8 F 72 18 118/80 97
02/04/24 07:30 02/04/24 07:52 02/04/24 07:30 02/04/24 07:52 02/04/24 08:00
Cardiovascular:: Regular rate and rhythm
Respiratory:: Bilateral: CTA
Lung Excursion:: Normal
Abdomen:: Nontender and Soft
Bowel Sounds:: Normal
Extremity Edema:: +1: Bilateral:
[2024-02-04 11:15] VITALS: BP 103/47
[2024-02-04] MEDS: OSCAL CAL 500 1000 MG PO (11:47)
--- NOTE | 2024-02-04 12:30 | W.DCSUMMARY ---
Discharge Summary
Discharge Data
Date of Admission: 01/28/24
Date of Discharge: 02/04/24
-
Pending Results: No
Hospital Course
Discharging Physician : Dr. Priscilla Pisano
Disposition : [facility], [place] [facility]
Primary care physician : Dr. Edwardo Vazquez
Principal Discharge diagnosis : bilateral hydronephrosis and urinary retention and left ureteral stones status post cystoscopy, stone removal, bilateral ureteral stents on 01/30/24; urinary tract infection; metastatic prostate cancer; acute
diastolic heart failure exacerbation; acute kidney injury; hypocalcemia with elevated parathyroid hormone
Hospital Course :
Mr. Jc Flor is a 78 yo man with hx recent admission 01/17-01/24 where newly diagonsed with metastatic prostate cancer, heart failure with preserved ejection fraction (s/p thoracentesis for pleural effusions and started on lasix 20mg PO QD,
presents back from SNF for abnormal lab values (Cr 2.0, K 6.0). He was found to be overloaded on exam and he was also found to be retainingurine. He was admitted to medicine with Nephrology and Urology consulting for VIVIAN in setting of hypervolemia
and outlet obstruction.
Regarding urinary retention/obstruction, a wang was placed and patient was started on flomax. CT with finding of nephrolithiasis. He underwent cysto/stone removal/bilateral ureteral stents on 01/30/24. Wang remains in place on discharge. Urine
culture grew enterrococcus and per discussion with ID pharmacy, he was started on Doxycycline and will complete a 7 day course.
Patient was diuresed during hospitalization. His weight dropped from 96.6 kg to 85.9 kg. His renal function returned to normal. He continues to have mild LE swelling related to low albumin. 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
daily with plans for close follow up labs.
He was hypocalcemic during hospitalization with improvement in calcium post supplementation. He is discharged on calcium supplementation (mid-day so doesn't interfere with Doxycycline)
He was discharged to SNF.
He has follow up with Dr. Velasquez on Wednesday, he has remained on his Casodex.
Time spent on discharge was 35 minutes.
Important imaging findings :
ABDOMEN/PELVIS CT 01/28/24
IMPRESSION:
3 mm calculus at the left uterovesical junction and 5 mm distal left ureter calculus with associated mild left hydroureteronephrosis. 4.5 mm atelectasis at the right ureterovesical junction with associated moderate right hydroureteronephrosis.
Procedure findings :
01/30/24
Procedure Performed:
cysto
cystolitholopaxy
right ureteroscopy and stent
left ureteroscopy,laser lithotripsy,stone extraction and stent
wang replacement
Discharge Plan
-
Patient Disposition: Shelter/SNF
Discharge Diagnosis/Procedures: bilateral hydronephrosis and urinary retention and left ureteral stones status post cystoscopy, stone removal, bilateral ureteral stents on 01/30/24; urinary tract infection; metastatic prostate cancer; acute
diastolic heart failure exacerbation; acute kidney injury; hypocalcemia with elevated parathyroid hormone
Diet: 2 Gram Sodium and Restrict fluids to 48 oz
Additional Diets: supplements are not necessary if you are eating 100% of meals, but OK to have one daily if you would like
Activity: As tolerated
Additional Activity: compression stockings to be worn at SNF
Driving Restrictions: No driving
Bathing Restrictions: None
Blood Work: BMP, Calcium, Albumin, Ionized Calcium on Wednesday02/08/24
Other Services: PT and OT
Specialty Instructions: Weigh Daily- Call MD for wt gain/loss 3 lbs overnight/5 lbs in 1 week
Instructions: *PCP/Other Beveler Heart Failure Instructions
Referrals:
Jaspreet Herrera MD [Active] - (follow up from prior hospitalization)
Edwardo Vazquez DO [Family Provider] - in less than 1 week
Donell Ribeiro Jr., MD [Active] - in one to two weeks (f/u with dr ribeiro as outpt for staged stent/wang removal )
Siva Velasquez MD [Active] - 02/07/24
Additional Discharge Medication Instructions: You have 2.5 more days of antibiotics (take next dose this evening; last dose Wednesday evening)
Doxycycline Precautions
�� Take with at least 6 oz H2O
�� Take with food but no calcium containing products like milk or cheese
�� Ideally you would not take any multivitamins, calcium, magnesium or zinc containing products.
�� If you must take one of these products make sure that the pills are by at least 3 hours.
�� Sit up for at least 30 minutes after each dose to prevent heartburn.
�� Your skin will be more sensitive to the sun while you are on doxycycline - it will be very easy for you to get a sunburn.
You may take your calcium supplementation mid-day - from morning and evening dose by at least 3 hours. When you complete your Doxycycline course, your physician may increase this dosing to twice a day based on follow up calcium levels.
Your Lasix is increased from 20 to 40mg daily.
You are started on Flomax daily.
If you have a day without a bowel movement then take Miralax.
Prescriptions:
New
furosemide 40 mg Tablet
40 mg PO DAILY Qty: 30 0RF
polyethylene glycol 3350 [HealthyLax] 17 gram Powder In Packet
17 g PO DAILY PRN (Reason: no bowel movement in 2 days) Qty: 14 0RF
tamsulosin 0.4 mg Capsule
0.4 mg PO DAILY Qty: 30 0RF
doxycycline hyclate 100 mg Capsule
100 mg PO Q12 Qty: 7 0RF
calcium carbonate 500 mg calcium (1,250 mg) Tablet
1,000 mg PO DAILY@1200 Qty: 10 0RF
hydrocortisone 1 % cream
1 applic topical BID PRN (Reason: lower extremity rash) Qty: 453.6 0RF
Continued
bicalutamide 50 mg Tablet
50 mg PO DAILY Qty: 30 0RF
acetaminophen 325 mg Tablet
650 mg PO Q4HPRN PRN (Reason: mild pain/fever>100)
bisacodyl [Dulcolax (bisacodyl)] 10 mg Suppository
10 mg [place] DAILYPRN PRN (Reason: if mom ineffective, give on day 5 if no bm)
Fleet Enema 19-7 gram/118 mL Enema
118 ml [place] DAILYPRN PRN (Reason: if dulcolax ineffective, give on day 6 of no bm)
lidocaine HCl-menthol 4-1 % Adhesive Patch,Medicated
1 patch TOPICAL HS
lidocaine HCl-menthol 4-1 % Adhesive Patch,Medicated
1 patch TOPICAL HS
naloxone [Narcan] 4 mg/actuation [place],Non-Aerosol
4 mg INTRANASAL Q3MPRN PRN (Reason: opioid overdose)
acetaminophen-codeine 300-30 mg Tablet
1 tab PO Q6HPRN PRN (Reason: moderate pain) Qty: 10 0RF
acetaminophen-codeine 300-30 mg Tablet
2 tab PO Q6HPRN PRN (Reason: severe pain) Qty: 10 0RF
Discontinued
furosemide 20 mg Tablet
20 mg PO DAILY Qty: 30 0RF
magnesium hydroxide [Milk of Magnesia] 400 mg/5 mL Suspension
30 ml PO DAILYPRN PRN (Reason: if no bm x 4 days)
Discharge Orders:
Discharge Patient (As Directed); Ordered 02/04/24
Ordered By: Priscilla Pisano
Discharge Date and Time
Print Language: URDU
== END 2024-02-04 13:35 | DRG 264 ==
LOC: 4 EAST ACU 18:12
PROVIDERS: Nurse Practitioner Family; Physician Assistant; Specialist; ADMITTING PHYSICIAN Internal Medicine; ATTENDING PHYSICIAN Student in an Organized Health Care Education/Training Program; CONSULT PHYSICIAN Internal Medicine; CONSULT PHYSICIAN Specialist; EMERGENCY PHYSICIAN Student in an Organized Health Care Education/Training Program; FAMILY PHYSICIAN Family Medicine
PROC: 0T9B80Z Drainage of Bladder with Drainage Device, Via Natural or Artificial Opening Endoscopic (ICD-10-PCS; 2024-01-30)
PROC: 0T788DZ Dilation of Bilateral Ureters with Intraluminal Device, Via Natural or Artificial Opening Endoscopic (ICD-10-PCS; 2024-01-30)
PROC: 0TC78ZZ Extirpation of Matter from Left Ureter, Via Natural or Artificial Opening Endoscopic (ICD-10-PCS; 2024-01-30)
DX: I50.33 Acute on chronic diastolic (congestive) heart failure (principal); C79.51 Secondary malignant neoplasm of bone; E22.2 Syndrome of inappropriate secretion of antidiuretic hormone; N17.9 Acute kidney failure, unspecified; J98.11 Atelectasis; N13.6 Pyonephrosis; D62 Acute posthemorrhagic anemia; D63.8 Anemia in other chronic diseases classified elsewhere; J44.89 Other specified chronic obstructive pulmonary disease; L89.621 Pressure ulcer of left heel, stage 1; E83.51 Hypocalcemia; C61 Malignant neoplasm of prostate; D47.2 Monoclonal gammopathy; E78.5 Hyperlipidemia, unspecified; E87.5 Hyperkalemia; G89.29 Other chronic pain; N21.0 Calculus in bladder; N40.0 Benign prostatic hyperplasia without lower urinary tract symptoms; R33.8 Other retention of urine; K59.00 Constipation, unspecified; R19.7 Diarrhea, unspecified; Z96.653 Presence of artificial knee joint, bilateral; Z79.899 Other long term (current) drug therapy; Z87.891 Personal history of nicotine dependence
CPT/HCPCS: 36415; 71046; 74018; 74176; 76000; 80048; 80053; 81003; 81015; 82040; 82306; 82330; 82570; 82607; 82728; 82746; 83540; 83550; 83735; 83880; 83935; 83970; 84156; 84300; 85025; 85027; 87070; 87077; 87086; 87147; 93005; 93970; 97116; 97162; 97166; 97530; 99285; C1758; C2617

== ENCOUNTER → 2024-02-08 10:43 | Outpatient (REF) | payer OTHER, MEDICARE, SELFPAY ==
[2024-02-08 11:56] LABS: Ionized Calcium 1.03 mMOL/L (1.15-1.33)
[2024-02-08 12:05] LABS: Albumin 2.6 g/dl (3.5-5.0); Blood Urea Nitrogen 20 mg/dl (9-20); Calcium 7.7 mg/dl (8.4-10.2); Carbon Dioxide 24 mmol/L (22-30); Chloride 101 mmol/L (98-107); Glucose 92 mg/dl (70-99); Potassium 3.9 mmol/L (3.5-5.1); Sodium 134 mmol/L (135-145); eGFR > 60.00
== END ==
LOC: OLABP 10:43
PROVIDERS: ATTENDING PHYSICIAN Family Medicine
DX: N13.2 Hydronephrosis with renal and ureteral calculous obstruction (principal); R74.8 Abnormal levels of other serum enzymes; D63.8 Anemia in other chronic diseases classified elsewhere; E87.1 Hypo-osmolality and hyponatremia; N17.9 Acute kidney failure, unspecified; C79.51 Secondary malignant neoplasm of bone; C61 Malignant neoplasm of prostate; J44.9 Chronic obstructive pulmonary disease, unspecified; E21.2 Other hyperparathyroidism; E21.4 Other specified disorders of parathyroid gland; E83.51 Hypocalcemia; I50.31 Acute diastolic (congestive) heart failure
CPT/HCPCS: 36415; 80048; 82040; 82330

== ENCOUNTER → 2024-02-14 10:46 | Outpatient (REF) | payer OTHER, MEDICARE, SELFPAY ==
[2024-02-14 12:23] LABS: Hemoglobin 7.8 g/dL (13.0-18.0); Mean Corp Hgb Conc. 32.5 g/dL (33.0-37.0); Mean Corpuscular Volume 92.3 fL (80.0-94.0); Mean Platelet Volume 10.3 fL (7.4-10.4); Platelet Count 180 10^3/uL (130-400); Red Cell Dist. Width 19.8 % (11.5-14.5); White Blood Cell Count 3.8 10^3/uL (4.8-10.8)
[2024-02-14 12:28] LABS: Blood Urea Nitrogen 16 mg/dl (9-20); Calcium 7.5 mg/dl (8.4-10.2); Carbon Dioxide 25 mmol/L (22-30); Chloride 102 mmol/L (98-107); Glucose 83 mg/dl (70-99); Potassium 3.9 mmol/L (3.5-5.1); Sodium 135 mmol/L (135-145); eGFR > 60.00
== END ==
LOC: OLABP 10:46
PROVIDERS: ATTENDING PHYSICIAN Family Medicine
DX: N13.2 Hydronephrosis with renal and ureteral calculous obstruction (principal); R74.8 Abnormal levels of other serum enzymes; D63.8 Anemia in other chronic diseases classified elsewhere; E87.1 Hypo-osmolality and hyponatremia; N17.9 Acute kidney failure, unspecified; C79.51 Secondary malignant neoplasm of bone; C61 Malignant neoplasm of prostate; J44.9 Chronic obstructive pulmonary disease, unspecified; E21.0 Primary hyperparathyroidism; I50.31 Acute diastolic (congestive) heart failure; E83.51 Hypocalcemia
CPT/HCPCS: 36415; 80048; 85027

== ENCOUNTER → 2024-02-28 11:05 | Outpatient (REF) | payer OTHER, MEDICARE, SELFPAY ==
[2024-02-28 11:49] LABS: ALT (SGPT) 12 U/L (0-50); AST (SGOT) 24 U/L (17-59); Albumin 2.8 g/dl (3.5-5.0); Blood Urea Nitrogen 16 mg/dl (9-20); Calcium 7.6 mg/dl (8.4-10.2); Carbon Dioxide 28 mmol/L (22-30); Chloride 100 mmol/L (98-107); Glucose 87 mg/dl (70-99); Potassium 4.1 mmol/L (3.5-5.1); Sodium 136 mmol/L (135-145); Total Bilirubin 0.3 mg/dl (0.2-1.3); Total Protein 4.9 g/dl (6.3-8.2); eGFR > 60.00
[2024-02-28 11:58] LABS: Alkaline Phosphatase 1051 U/L (38-126)
[2024-02-28 12:01] LABS: Hematocrit 24.3 % (39.0-52.0); Hemoglobin 7.8 g/dL (13.0-18.0); Mean Corp Hgb Conc. 32.1 g/dL (33.0-37.0); Mean Corpuscular Volume 93.5 fL (80.0-94.0); Platelet Count 197 10^3/uL (130-400); Red Cell Dist. Width 20.4 % (11.5-14.5)
[2024-02-28 12:39] LABS: Absolute Neutrophils -Man Diff 1.7 10^3/uL (1.4-6.5); Band Neutrophils 3 % (0-3); Eosinophils 5 % (0-6); Lymphocytes 34 % (20-51); Metamyelocytes 3 % (-); Monocytes 13 % (2-9); Myelocytes 1 % (-); Platelets Checked Yes; Segmented Neutrophils 41 % (42-75)
[2024-02-28 12:40] LABS: Anisocytosis Slight; Hypochromasia 1+; Normal RBC Morphology No; Ovalocytes 1+; Polychromasia 1+; Total Cells Counted 100
== END ==
LOC: OLABP 11:05
PROVIDERS: ATTENDING PHYSICIAN Family Medicine
DX: N13.2 Hydronephrosis with renal and ureteral calculous obstruction (principal); R74.8 Abnormal levels of other serum enzymes; D63.8 Anemia in other chronic diseases classified elsewhere; E87.1 Hypo-osmolality and hyponatremia; N17.9 Acute kidney failure, unspecified; C79.51 Secondary malignant neoplasm of bone; C61 Malignant neoplasm of prostate; J44.9 Chronic obstructive pulmonary disease, unspecified; E21.0 Primary hyperparathyroidism; E83.51 Hypocalcemia
CPT/HCPCS: 36415; 80053; 85025

== ENCOUNTER → 2024-02-29 10:31 | Outpatient (REF) | payer OTHER, MEDICARE, SELFPAY ==
[2024-02-29 12:58] LABS: ALT (SGPT) 12 U/L (0-50); AST (SGOT) 25 U/L (17-59); Albumin 2.9 g/dl (3.5-5.0); Alkaline Phosphatase 1137 U/L (38-126); Blood Urea Nitrogen 17 mg/dl (9-20); Calcium 7.7 mg/dl (8.4-10.2); Carbon Dioxide 27 mmol/L (22-30); Chloride 101 mmol/L (98-107); Glucose 87 mg/dl (70-99); Potassium 4.3 mmol/L (3.5-5.1); Sodium 135 mmol/L (135-145); Total Bilirubin 0.3 mg/dl (0.2-1.3); Total Protein 4.9 g/dl (6.3-8.2); eGFR > 60.00
[2024-02-29 13:05] LABS: Hematocrit 23.9 % (39.0-52.0); Hemoglobin 7.8 g/dL (13.0-18.0); Mean Corp Hgb Conc. 32.6 g/dL (33.0-37.0); Mean Corpuscular Hgb 30.2 pg (27.0-31.0); Mean Corpuscular Volume 92.6 fL (80.0-94.0); Platelet Count 188 10^3/uL (130-400); Red Blood Cell Count 2.58 10^6/uL (4.70-6.10); Red Cell Dist. Width 20.5 % (11.5-14.5); White Blood Cell Count 4.2 10^3/uL (4.8-10.8)
[2024-02-29 14:32] LABS: Absolute Neutrophils -Man Diff 2.3 10^3/uL (1.4-6.5); Band Neutrophils 0 % (0-3); Eosinophils 2 % (0-6); Lymphocytes 22 % (20-51); Monocytes 11 % (2-9); Segmented Neutrophils 56 % (42-75)
[2024-02-29 14:33] LABS: Atypical Lymphocytes 8 %; Normal RBC Morphology Yes; Platelets Checked Yes; Total Cells Counted 100
== END ==
LOC: OLABP 10:31
PROVIDERS: ATTENDING PHYSICIAN Family Medicine
DX: N13.2 Hydronephrosis with renal and ureteral calculous obstruction (principal); R74.8 Abnormal levels of other serum enzymes; D63.8 Anemia in other chronic diseases classified elsewhere; E87.1 Hypo-osmolality and hyponatremia; N17.9 Acute kidney failure, unspecified; C79.51 Secondary malignant neoplasm of bone; C61 Malignant neoplasm of prostate; J44.9 Chronic obstructive pulmonary disease, unspecified; E21.0 Primary hyperparathyroidism; I50.31 Acute diastolic (congestive) heart failure
CPT/HCPCS: 36415; 80053; 85025

== ENCOUNTER → 2024-03-07 11:30 | Outpatient (REF) | payer MEDICARE, OTHER, SELFPAY | LOC: HWRAD 11:30 | PROVIDERS: ATTENDING PHYSICIAN Specialist; FAMILY PHYSICIAN Family Medicine | DX: N13.39 Other hydronephrosis (principal) | CPT/HCPCS: 76775 ==

== ENCOUNTER → 2024-03-10 09:49 | Outpatient (REF) | payer OTHER, MEDICARE, SELFPAY ==
[2024-03-10 13:23] LABS: PSA, Total - Diagnostic 4.01 ng/ml (0.0-4.0)
[2024-03-10 13:26] LABS: Testosterone, Total 11.2 ng/dl (72-623)
[2024-03-10 13:53] LABS: ALT (SGPT) 10 U/L (0-50); AST (SGOT) 21 U/L (17-59); Albumin 3.1 g/dl (3.5-5.0); Alkaline Phosphatase 1131 U/L (38-126); Direct Bilirubin 0.1 mg/dl (0.0-0.4); HDL Cholesterol 68 mg/dl; LDL Cholesterol, Calculated 100 mg/dl; Total Bilirubin 0.3 mg/dl (0.2-1.3); Total Cholesterol 185 mg/dl (50-199); Total Protein 5.2 g/dl (6.3-8.2); Triglyceride 89 mg/dl (10-149); Very Low Density Lipoprotein 17 mg/dl (0-30)
== END ==
LOC: OLABP 09:49
PROVIDERS: ATTENDING PHYSICIAN Family Medicine
DX: N13.2 Hydronephrosis with renal and ureteral calculous obstruction (principal); I50.31 Acute diastolic (congestive) heart failure; R74.8 Abnormal levels of other serum enzymes; D63.8 Anemia in other chronic diseases classified elsewhere; E87.1 Hypo-osmolality and hyponatremia; N17.9 Acute kidney failure, unspecified; C79.51 Secondary malignant neoplasm of bone; C61 Malignant neoplasm of prostate; J44.9 Chronic obstructive pulmonary disease, unspecified; E21.3 Hyperparathyroidism, unspecified; E83.51 Hypocalcemia
CPT/HCPCS: 80061; 80076; 84153; 84403

== ENCOUNTER → 2024-04-21 11:35 | Outpatient (REF) | payer MEDICARE, OTHER, SELFPAY ==
[2024-04-21 16:17] LABS: % Basophils 0.9 % (0-2); % Eosinophils 4.3 % (0-6); % Immature Granulocytes 1.3 % (0-0.5); % Lymphocytes 15.1 % (20.5-51.1); % Monocytes 18.1 % (1.7-9.3); % Neutrophils 60.3 % (42.2-75.2); Absolute Basophils 0.1 10^3/uL (0-0.2); Absolute Eosinophils 0.2 10^3/uL (0-0.7); Absolute Immature Granulocytes 0.1 10^3/uL (0-0.05); Absolute Lymphocytes 0.8 10^3/uL (1.2-3.4); Absolute Neutrophils 3.4 10^3/uL (1.4-6.5); Hematocrit 31.7 % (39.0-52.0); Hemoglobin 10.1 g/dL (13.0-18.0); Mean Corp Hgb Conc. 31.9 g/dL (33.0-37.0); Mean Corpuscular Hgb 31.5 pg (27.0-31.0); Mean Corpuscular Volume 98.8 fL (80.0-94.0); Nucleated Red Blood Cells % 0 % (-); Platelet Count 258 10^3/uL (130-400); Red Blood Cell Count 3.21 10^6/uL (4.70-6.10); Red Cell Dist. Width 15.5 % (11.5-14.5); White Blood Cell Count 5.6 10^3/uL (4.8-10.8)
[2024-04-21 16:28] LABS: ALT (SGPT) < 10 U/L (0-50); AST (SGOT) 20 U/L (17-59); Alkaline Phosphatase 479 U/L (38-126); Blood Urea Nitrogen 14 mg/dl (9-20); Calcium 8.6 mg/dl (8.4-10.2); Carbon Dioxide 28 mmol/L (22-30); Chloride 93 mmol/L (98-107); Glucose 103 mg/dl (70-99); Potassium 4.8 mmol/L (3.5-5.1); Sodium 131 mmol/L (135-145); Total Bilirubin 0.5 mg/dl (0.2-1.3); Total Protein 6.1 g/dl (6.3-8.2); eGFR > 60.00
[2024-04-21 16:58] LABS: PSA, Total - Diagnostic 1.56 ng/ml (0.0-4.0)
== END ==
LOC: HWRAD 11:35
PROVIDERS: ATTENDING PHYSICIAN Internal Medicine Critical Care Medicine; FAMILY PHYSICIAN Family Medicine; REFERRING PHYSICIAN Internal Medicine Hematology & Oncology
DX: R91.8 Other nonspecific abnormal finding of lung field (principal); D64.9 Anemia, unspecified; C61 Malignant neoplasm of prostate; D47.2 Monoclonal gammopathy
CPT/HCPCS: 36415; 71250; 80053; 84153; 85025

== ENCOUNTER → 2024-08-17 11:37 | Outpatient (REF) | payer MEDICARE, OTHER, SELFPAY ==
[2024-08-17 16:16] LABS: % Basophils 0.9 % (0-2); % Eosinophils 4.7 % (0-6); % Immature Granulocytes 0.7 % (0-0.5); % Lymphocytes 23.8 % (20.5-51.1); % Monocytes 15.4 % (1.7-9.3); % Neutrophils 54.5 % (42.2-75.2); Absolute Eosinophils 0.2 10^3/uL (0-0.7); Absolute Lymphocytes 1.1 10^3/uL (1.2-3.4); Absolute Monocytes 0.7 10^3/uL (0.1-0.6); Absolute Neutrophils 2.5 10^3/uL (1.4-6.5); Hematocrit 33.8 % (39.0-52.0); Hemoglobin 11.7 g/dL (13.0-18.0); Mean Corp Hgb Conc. 34.6 g/dL (33.0-37.0); Mean Corpuscular Volume 89.7 fL (80.0-94.0); Mean Platelet Volume 9.8 fL (7.4-10.4); Nucleated Red Blood Cells % 0 % (-); Platelet Count 200 10^3/uL (130-400); Red Blood Cell Count 3.77 10^6/uL (4.70-6.10); Red Cell Dist. Width 13.3 % (11.5-14.5); White Blood Cell Count 4.5 10^3/uL (4.8-10.8)
[2024-08-17 16:30] LABS: ALT (SGPT) 11 U/L (0-50); AST (SGOT) 20 U/L (17-59); Albumin 4.4 g/dl (3.5-5.0); Alkaline Phosphatase 180 U/L (38-126); Blood Urea Nitrogen 18 mg/dl (9-20); Calcium 9.4 mg/dl (8.4-10.2); Carbon Dioxide 28 mmol/L (22-30); Chloride 94 mmol/L (98-107); Glucose 135 mg/dl (70-99); Potassium 4.2 mmol/L (3.5-5.1); Sodium 130 mmol/L (135-145); Total Bilirubin 0.6 mg/dl (0.2-1.3); Total Protein 6.7 g/dl (6.3-8.2); eGFR > 60.00
[2024-08-17 16:56] LABS: TSH 3.61 uIU/ml (0.47-4.68)
== END ==
LOC: HWLAB 11:37
PROVIDERS: ATTENDING PHYSICIAN Family Medicine; REFERRING PHYSICIAN Internal Medicine Hematology & Oncology
DX: Z00.00 Encounter for general adult medical examination without abnormal findings (principal); E78.5 Hyperlipidemia, unspecified; C61 Malignant neoplasm of prostate; C79.51 Secondary malignant neoplasm of bone; I45.10 Unspecified right bundle-branch block; Z87.891 Personal history of nicotine dependence; G89.29 Other chronic pain; M54.50 Low back pain, unspecified; I70.0 Atherosclerosis of aorta; Z13.39 Encounter for screening examination for other mental health and behavioral disorders; Z13.31 Encounter for screening for depression; Z71.89 Other specified counseling; E66.09 Other obesity due to excess calories; Z68.34 Body mass index [BMI] 34.0-34.9, adult; E66.811 Obesity, class 1; Z71.3 Dietary counseling and surveillance; H92.02 Otalgia, left ear
CPT/HCPCS: 36415; 80053; 84443; 85025

== ENCOUNTER → 2024-08-21 12:10 | Outpatient (REF) | payer MEDICARE, OTHER, SELFPAY ==
[2024-08-21 16:32] LABS: HDL Cholesterol 87 mg/dl; LDL Cholesterol, Calculated 128 mg/dl; Total Cholesterol 236 mg/dl (50-199); Triglyceride 106 mg/dl (10-149); Very Low Density Lipoprotein 21 mg/dl (0-30)
[2024-08-21 17:13] LABS: PSA, Total - Diagnostic 2.52 ng/ml (0.0-4.0)
== END ==
LOC: HWLAB 12:10
PROVIDERS: ATTENDING PHYSICIAN Internal Medicine Hematology & Oncology; FAMILY PHYSICIAN Family Medicine
DX: Z00.00 Encounter for general adult medical examination without abnormal findings (principal); E78.5 Hyperlipidemia, unspecified; C61 Malignant neoplasm of prostate; C79.51 Secondary malignant neoplasm of bone; I45.10 Unspecified right bundle-branch block; Z87.891 Personal history of nicotine dependence; G89.29 Other chronic pain; M54.50 Low back pain, unspecified; I70.0 Atherosclerosis of aorta; Z13.39 Encounter for screening examination for other mental health and behavioral disorders; Z13.31 Encounter for screening for depression; Z71.89 Other specified counseling; E66.09 Other obesity due to excess calories; Z68.34 Body mass index [BMI] 34.0-34.9, adult; Z71.3 Dietary counseling and surveillance; H92.02 Otalgia, left ear; D64.9 Anemia, unspecified; D47.2 Monoclonal gammopathy
CPT/HCPCS: 36415; 80061; 84153

== ENCOUNTER → 2025-02-09 12:53 | Outpatient (REF) | payer MEDICARE, OTHER, SELFPAY ==
[2025-02-09 16:12] LABS: Hematocrit 37.5 % (39.0-52.0); Hemoglobin 12.5 g/dL (13.0-18.0); Mean Corp Hgb Conc. 33.3 g/dL (33.0-37.0); Mean Corpuscular Volume 93.5 fL (80.0-94.0); Nucleated Red Blood Cells % 0 % (-); Platelet Count 253 10^3/uL (130-400); Red Cell Dist. Width 12.9 % (11.5-14.5)
[2025-02-09 16:31] LABS: ALT (SGPT) 12 U/L (0-50); AST (SGOT) 25 U/L (17-59); Albumin 4.6 g/dl (3.5-5.0); Alkaline Phosphatase 128 U/L (38-126); Blood Urea Nitrogen 42 mg/dl (9-20); Calcium 9.8 mg/dl (8.4-10.2); Carbon Dioxide 30 mmol/L (22-30); Chloride 92 mmol/L (98-107); Glucose 123 mg/dl (70-99); Potassium 3.8 mmol/L (3.5-5.1); Sodium 133 mmol/L (135-145); Total Protein 7.5 g/dl (6.3-8.2); eGFR > 60.00
[2025-02-09 17:28] LABS: PSA, Total - Diagnostic 62.00 ng/ml (0.0-4.0)
== END ==
LOC: HWLAB 12:53
PROVIDERS: ATTENDING PHYSICIAN Internal Medicine Hematology & Oncology; FAMILY PHYSICIAN Family Medicine; REFERRING PHYSICIAN Internal Medicine Critical Care Medicine
DX: D64.9 Anemia, unspecified (principal); C61 Malignant neoplasm of prostate; D47.2 Monoclonal gammopathy; R91.8 Other nonspecific abnormal finding of lung field
CPT/HCPCS: 36415; 71250; 80053; 82784; 83521; 84153; 84155; 84165; 85025; 86334